=== PATIENT | female | born 1940 | race Caucasian/White ===

== ENCOUNTER → 2018-03-27 14:06 | Outpatient (CLI) | payer MEDICARE, SELFPAY ==
[2018-03-27 16:06] LABS: Add Manual Diff / Slide Review NO; Basophils Percent Auto 0.4 % (0-2); Eosinophils Percent Auto 3.9 % (2-4); Hematocrit 39.5 % (36-46); Hemoglobin 13.6 g/dL (12.0-16.0); Lymphocytes Percent Auto 21.9 % (25-40); Mean Corpuscular HGB Conc 34.6 % (30-36); Mean Corpuscular Hemoglobin 33.5 PG (26-34); Monocytes Percent Auto 8.2 % (3-14); Neutrophils Absolute Auto 3900 /uL (3000-5900); Neutrophils Percent Auto 65.6 % (50-75); Platelet Count 303 X10^3/uL (150-400); Red Blood Cell Count 4.07 X10^6/uL (4.0-5.2); Red Cell Distribution Width 13.8 % (11.6-14.8); White Blood Cell Count 5.9 X10^3/uL (4.5-11.0)
[2018-03-27 16:27] LABS: Alanine Aminotransferase 15 IU/L (9-52); Albumin 4.2 g/dL (3.5-5.0); Albumin Globulin Ratio 1.4 (1.0-2.8); Alkaline Phosphatase 71 U/L (38-126); Aspartate Aminotransferase 43 IU/L (14-36); BUN Creatinine Ratio 25.7 (6-22); Bilirubin Total 0.3 mg/dL (0.2-1.3); Blood Urea Nitrogen 18 mg/dL (7-17); Calcium 9.3 mg/dL (8.4-10.2); Carbon Dioxide 28 mmol/L (22-32); Chloride 102 mmol/L (98-107); Estimated Glomerular Filt Rate > 60.0 mL/min (>60); Glucose 89 mg/dL (80-110); HEMOLYSIS 18 (0-50); Potassium 4.1 mmol/L (3.4-5.1); Sodium 140 mmol/L (137-145); Total Protein 7.2 g/dL (6.3-8.2)
== END ==
PROVIDERS: PCP Internal Medicine; Visit Provider Internal Medicine Rheumatology
DX: R94.5 Abnormal results of liver function studies (principal); M06.049 Rheumatoid arthritis without rheumatoid factor, unspecified hand
CPT/HCPCS: 36415; 80053; 85025

== ENCOUNTER → 2018-06-17 15:33 | Outpatient (CLI) | payer MEDICARE, SELFPAY ==
[2018-06-17 16:10] LABS: Add Manual Diff / Slide Review NO; Basophils Absolute Auto 0 /uL (0-100); Basophils Percent Auto 0.5 % (0-2); Eosinophils Absolute Auto 300 /uL (0-450); Eosinophils Percent Auto 4.8 % (2-4); Hematocrit 38.6 % (36-46); Hemoglobin 13.2 g/dL (12.0-16.0); Lymphocytes Absolute Auto 1500 /uL (1100-4500); Lymphocytes Percent Auto 26.5 % (25-40); Mean Corpuscular HGB Conc 34.3 % (30-36); Mean Corpuscular Hemoglobin 33.3 PG (26-34); Mean Corpuscular Volume 97.1 fL (80-100); Monocytes Absolute Auto 400 /uL (0-900); Monocytes Percent Auto 7.2 % (3-14); Neutrophils Absolute Auto 3500 /uL (1500-7000); Platelet Count 260 X10^3/uL (150-400); Red Blood Cell Count 3.97 X10^6/uL (4.0-5.2); Red Cell Distribution Width 14.4 % (11.6-14.8); White Blood Cell Count 5.7 X10^3/uL (4.5-11.0)
[2018-06-17 17:09] LABS: Alanine Aminotransferase 18 IU/L (9-52); Albumin 3.9 g/dL (3.5-5.0); Albumin Globulin Ratio 1.5 (1.0-2.8); Alkaline Phosphatase 59 U/L (38-126); Aspartate Aminotransferase 33 IU/L (14-36); BUN Creatinine Ratio 27.1 (6-22); Bilirubin Total 0.3 mg/dL (0.2-1.3); Blood Urea Nitrogen 19 mg/dL (7-17); Calcium 9.5 mg/dL (8.4-10.2); Carbon Dioxide 30 mmol/L (22-32); Chloride 103 mmol/L (98-107); Estimated Glomerular Filt Rate > 60.0 mL/min (>60); Globulin 2.6 g/dL (1.7-4.1); Glucose 90 mg/dL (80-110); HEMOLYSIS < 15 (0-50); Potassium 4.3 mmol/L (3.4-5.1); Sodium 139 mmol/L (137-145); Total Protein 6.5 g/dL (6.3-8.2)
== END ==
PROVIDERS: PCP Internal Medicine; Visit Provider Internal Medicine Rheumatology
DX: M81.0 Age-related osteoporosis without current pathological fracture (principal); Z79.899 Other long term (current) drug therapy
CPT/HCPCS: 36415; 80053; 85025

== ENCOUNTER → 2018-07-28 14:22 | Outpatient (CLI) | payer MEDICARE, SELFPAY ==
--- NOTE | 2018-07-28 | DI.RAD.S_ITS ---
PROCEDURE: XR CHEST 2V INDICATIONS: COUGH TECHNIQUE: 2 views of the chest were acquired. COMPARISON: None. FINDINGS: Surgical changes and devices: None. Lungs and pleura: Lungs are clear. No pleural effusions or pneumothorax. Mediastinum: Mediastinal contours are normal. Heart size is normal. Bones and chest wall: No suspicious bony abnormalities. Soft tissues appear unremarkable. Degenerative changes noted in the thoracic spine. IMPRESSION: No acute cardiopulmonary disease. Dictated by: Jairo Ocampo M.D. on 07/28/2018 at 15:30 Approved by: Jairo Ocampo M.D. on 07/28/2018 at 15:30
== END ==
PROVIDERS: PCP Internal Medicine; Visit Provider Internal Medicine
DX: R05 Cough (principal)
CPT/HCPCS: 71046

== ENCOUNTER → 2018-09-21 13:32 | Outpatient (CLI) | payer MEDICARE, SELFPAY ==
[2018-09-21 14:18] LABS: Add Manual Diff / Slide Review NO; Basophils Absolute Auto 0 /uL (0-100); Basophils Percent Auto 0.4 % (0-2); Eosinophils Absolute Auto 200 /uL (0-450); Hematocrit 38.7 % (36-46); Hemoglobin 13.1 g/dL (12.0-16.0); Lymphocytes Absolute Auto 1400 /uL (1100-4500); Mean Corpuscular HGB Conc 33.8 % (30-36); Mean Corpuscular Hemoglobin 33.2 PG (26-34); Mean Corpuscular Volume 98.3 fL (80-100); Monocytes Absolute Auto 400 /uL (0-900); Monocytes Percent Auto 8.1 % (3-14); Neutrophils Absolute Auto 3100 /uL (1500-7000); Neutrophils Percent Auto 61.5 % (50-75); Platelet Count 231 X10^3/uL (150-400); Red Blood Cell Count 3.94 X10^6/uL (4.0-5.2); White Blood Cell Count 5.1 X10^3/uL (4.5-11.0)
[2018-09-21 14:34] LABS: Alanine Aminotransferase 16 IU/L (9-52); Albumin Globulin Ratio 1.7 (1.0-2.8); Alkaline Phosphatase 53 U/L (38-126); Aspartate Aminotransferase 34 IU/L (14-36); BUN Creatinine Ratio 22.9 (6-22); Bilirubin Total 0.4 mg/dL (0.2-1.3); Blood Urea Nitrogen 16 mg/dL (7-17); Calcium 9.5 mg/dL (8.4-10.2); Carbon Dioxide 31 mmol/L (22-32); Chloride 98 mmol/L (98-107); Estimated Glomerular Filt Rate > 60.0 mL/min (>60); Globulin 2.4 g/dL (1.7-4.1); Glucose 73 mg/dL (80-110); HEMOLYSIS < 15 (0-50); Potassium 4.2 mmol/L (3.4-5.1); Sodium 137 mmol/L (137-145); Total Protein 6.4 g/dL (6.3-8.2)
== END ==
PROVIDERS: PCP Internal Medicine; Visit Provider Internal Medicine Rheumatology
DX: M06.09 Rheumatoid arthritis without rheumatoid factor, multiple sites (principal); Z79.899 Other long term (current) drug therapy; M81.0 Age-related osteoporosis without current pathological fracture
CPT/HCPCS: 36415; 80053; 85025

== ENCOUNTER → 2018-10-12 11:06 | Outpatient (CLI) | payer MEDICARE, SELFPAY ==
--- NOTE | 2018-10-12 | DI.MG.S_ITS ---
BILATERAL DIGITAL SCREENING MAMMOGRAM 3D/2D WITH CAD: 10/12/2018 CLINICAL: Routine screening. Comparison is made to exams dated: 09/11/2017 mammogram, 08/09/2016 mammogram, and 07/11/2015 mammogram - [facility]. The tissue of both breasts is extremely dense, which lowers the sensitivity of mammography. Current study was also evaluated with a Computer Aided Detection (CAD) system. No significant masses, calcifications, or other findings are seen in either breast. There has been no significant interval change. IMPRESSION: NEGATIVE There is no mammographic evidence of malignancy. A 1 year screening mammogram is recommended. This exam was interpreted at Station ID: [id number]. NOTE: For mammograms, a report in lay terms will be sent to the patient. Approximately 15% of breast malignancies will not be visualized mammographically. In the management of a palpable breast mass, a negative mammogram must not discourage biopsy of a clinically suspicious lesion. Electronically Signed By: Frankie shea/khoi:10/12/2018 14:56:17 letter sent: Normal Exam ACR BI-RADS Category 1: Negative 3341F
== END ==
PROVIDERS: PCP Internal Medicine; Visit Provider Internal Medicine
DX: Z12.31 Encounter for screening mammogram for malignant neoplasm of breast (principal)
CPT/HCPCS: 77063; 77067

== ENCOUNTER → 2018-12-11 10:08 | Outpatient (CLI) | payer MEDICARE, SELFPAY ==
[2018-12-11 11:22] LABS: Add Manual Diff / Slide Review NO; Basophils Absolute Auto 0 /uL (0-100); Basophils Percent Auto 0.6 % (0-2); Eosinophils Absolute Auto 300 /uL (0-450); Eosinophils Percent Auto 6.9 % (2-4); Hematocrit 37.7 % (36-46); Hemoglobin 13.1 g/dL (12.0-16.0); Lymphocytes Absolute Auto 1200 /uL (1100-4500); Lymphocytes Percent Auto 24.1 % (25-40); Mean Corpuscular HGB Conc 34.7 % (30-36); Mean Corpuscular Hemoglobin 33.1 PG (26-34); Mean Corpuscular Volume 95.4 fL (80-100); Monocytes Absolute Auto 500 /uL (0-900); Monocytes Percent Auto 9.3 % (3-14); Neutrophils Absolute Auto 2900 /uL (1500-7000); Neutrophils Percent Auto 59.1 % (50-75); Platelet Count 269 X10^3/uL (150-400); Red Blood Cell Count 3.95 X10^6/uL (4.0-5.2); Red Cell Distribution Width 14.1 % (11.6-14.8)
[2018-12-11 11:49] LABS: Alanine Aminotransferase 8 IU/L (9-52); Albumin Globulin Ratio 1.4 (1.0-2.8); Alkaline Phosphatase 69 U/L (38-126); Aspartate Aminotransferase 36 IU/L (14-36); BUN Creatinine Ratio 23.3 (6-22); Bilirubin Total 0.5 mg/dL (0.2-1.3); Blood Urea Nitrogen 14 mg/dL (7-17); Calcium 9.3 mg/dL (8.4-10.2); Carbon Dioxide 31 mmol/L (22-32); Chloride 98 mmol/L (98-107); Estimated Glomerular Filt Rate > 60.0 mL/min (>60); Globulin 2.8 g/dL (1.7-4.1); Glucose 80 mg/dL (80-110); HEMOLYSIS < 15 (0-50); Potassium 4.4 mmol/L (3.4-5.1); Sodium 136 mmol/L (137-145); Total Protein 6.8 g/dL (6.3-8.2)
== END ==
PROVIDERS: PCP Internal Medicine; Visit Provider Internal Medicine Rheumatology
DX: M06.09 Rheumatoid arthritis without rheumatoid factor, multiple sites (principal); M81.0 Age-related osteoporosis without current pathological fracture; Z79.899 Other long term (current) drug therapy
CPT/HCPCS: 36415; 80053; 85025

== ENCOUNTER → 2019-03-18 14:08 | Outpatient (CLI) | payer MEDICARE, SELFPAY ==
[2019-03-18 14:38] LABS: Add Manual Diff / Slide Review NO; Basophils Absolute Auto 0 /uL (0-100); Basophils Percent Auto 0.4 % (0-2); Eosinophils Absolute Auto 200 /uL (0-450); Eosinophils Percent Auto 4.1 % (2-4); Hematocrit 39.2 % (36-46); Hemoglobin 13.2 g/dL (12.0-16.0); Lymphocytes Absolute Auto 1400 /uL (1100-4500); Lymphocytes Percent Auto 27.2 % (25-40); Mean Corpuscular HGB Conc 33.8 % (30-36); Mean Corpuscular Volume 97.6 fL (80-100); Monocytes Absolute Auto 500 /uL (0-900); Monocytes Percent Auto 9.1 % (3-14); Neutrophils Absolute Auto 3000 /uL (1500-7000); Neutrophils Percent Auto 59.2 % (50-75); Platelet Count 281 X10^3/uL (150-400); Red Blood Cell Count 4.02 X10^6/uL (4.0-5.2); Red Cell Distribution Width 14.9 % (11.6-14.8)
[2019-03-18 15:51] LABS: Alanine Aminotransferase 14 IU/L (9-52); Albumin Globulin Ratio 1.4 (1.0-2.8); Alkaline Phosphatase 60 U/L (38-126); Aspartate Aminotransferase 36 IU/L (14-36); BUN Creatinine Ratio 27.1 (6-22); Bilirubin Total 0.4 mg/dL (0.2-1.3); Blood Urea Nitrogen 19 mg/dL (7-17); Calcium 9.7 mg/dL (8.4-10.2); Carbon Dioxide 32 mmol/L (22-32); Chloride 98 mmol/L (98-107); Estimated Glomerular Filt Rate > 60.0 mL/min (>60); Globulin 2.8 g/dL (1.7-4.1); Glucose 63 mg/dL (80-110); HEMOLYSIS < 15 (0-50); Potassium 4.7 mmol/L (3.4-5.1); Sodium 136 mmol/L (137-145); Total Protein 6.8 g/dL (6.3-8.2)
== END ==
PROVIDERS: PCP Internal Medicine; Visit Provider Internal Medicine Rheumatology
DX: M06.09 Rheumatoid arthritis without rheumatoid factor, multiple sites (principal); Z79.899 Other long term (current) drug therapy; M81.0 Age-related osteoporosis without current pathological fracture
CPT/HCPCS: 36415; 80053; 85025

== ENCOUNTER → 2019-06-24 13:34 | Outpatient (CLI) | payer MEDICARE, SELFPAY ==
[2019-06-24 14:36] LABS: Add Manual Diff / Slide Review NO; Basophils Absolute Auto 0 /uL (0-100); Basophils Percent Auto 0.6 % (0-2); Eosinophils Absolute Auto 100 /uL (0-450); Eosinophils Percent Auto 2.9 % (2-4); Hematocrit 37.5 % (36-46); Hemoglobin 13.2 g/dL (12.0-16.0); Lymphocytes Absolute Auto 1100 /uL (1100-4500); Lymphocytes Percent Auto 22.7 % (25-40); Mean Corpuscular HGB Conc 35.3 % (30-36); Mean Corpuscular Hemoglobin 34.1 PG (26-34); Mean Corpuscular Volume 96.5 fL (80-100); Monocytes Absolute Auto 400 /uL (0-900); Monocytes Percent Auto 7.7 % (3-14); Neutrophils Absolute Auto 3300 /uL (1500-7000); Neutrophils Percent Auto 66.1 % (50-75); Platelet Count 274 X10^3/uL (150-400); Red Blood Cell Count 3.89 X10^6/uL (4.0-5.2); Red Cell Distribution Width 14.2 % (11.6-14.8)
[2019-06-24 15:02] LABS: Alanine Aminotransferase 11 IU/L (<35); Albumin 3.9 g/dL (3.5-5.0); Albumin Globulin Ratio 1.4 (1.0-2.8); Alkaline Phosphatase 64 U/L (38-126); Aspartate Aminotransferase 36 IU/L (14-36); BUN Creatinine Ratio 21.3 (6-22); Bilirubin Total 0.4 mg/dL (0.2-1.3); Blood Urea Nitrogen 17 mg/dL (7-17); Calcium 9.7 mg/dL (8.4-10.2); Carbon Dioxide 31 mmol/L (22-32); Chloride 102 mmol/L (98-107); Estimated Glomerular Filt Rate > 60.0 mL/min (>60); Globulin 2.8 g/dL (1.7-4.1); Glucose 64 mg/dL (80-110); HEMOLYSIS < 15 (0-50); Potassium 4.3 mmol/L (3.4-5.1); Sodium 139 mmol/L (137-145); Total Protein 6.7 g/dL (6.3-8.2)
== END ==
PROVIDERS: PCP Internal Medicine; Visit Provider Internal Medicine Rheumatology
DX: M06.09 Rheumatoid arthritis without rheumatoid factor, multiple sites (principal); M81.0 Age-related osteoporosis without current pathological fracture; Z79.899 Other long term (current) drug therapy
CPT/HCPCS: 36415; 80053; 85025

== ENCOUNTER → 2019-09-22 13:41 | Outpatient (CLI) | payer MEDICARE, SELFPAY ==
[2019-09-22 14:15] LABS: Add Manual Diff / Slide Review NO; Basophils Absolute Auto 0 /uL (0-100); Basophils Percent Auto 0.6 % (0-2); Eosinophils Absolute Auto 100 /uL (0-450); Eosinophils Percent Auto 1.8 % (2-4); Hematocrit 37.9 % (36-46); Lymphocytes Absolute Auto 1200 /uL (1100-4500); Lymphocytes Percent Auto 23.9 % (25-40); Mean Corpuscular HGB Conc 34.3 % (30-36); Mean Corpuscular Hemoglobin 33.4 PG (26-34); Mean Corpuscular Volume 97.4 fL (80-100); Monocytes Absolute Auto 300 /uL (0-900); Monocytes Percent Auto 5.7 % (3-14); Neutrophils Absolute Auto 3500 /uL (1500-7000); Platelet Count 272 X10^3/uL (150-400); Red Blood Cell Count 3.89 X10^6/uL (4.0-5.2); Red Cell Distribution Width 14.7 % (11.6-14.8); White Blood Cell Count 5.2 X10^3/uL (4.5-11.0)
[2019-09-22 14:34] LABS: Alanine Aminotransferase 11 IU/L (<35); Albumin Globulin Ratio 1.4 (1.0-2.8); Alkaline Phosphatase 63 U/L (38-126); Aspartate Aminotransferase 38 IU/L (14-36); BUN Creatinine Ratio 22.6 (6-22); Bilirubin Total 0.4 mg/dL (0.2-1.3); Blood Urea Nitrogen 19 mg/dL (7-17); Calcium 9.8 mg/dL (8.4-10.2); Carbon Dioxide 29 mmol/L (22-32); Chloride 100 mmol/L (98-107); Estimated Glomerular Filt Rate > 60.0 mL/min (>60); Globulin 2.9 g/dL (1.7-4.1); Glucose 139 mg/dL (80-110); HEMOLYSIS < 15 (0-50); Potassium 4.4 mmol/L (3.4-5.1); Sodium 136 mmol/L (137-145); Total Protein 6.9 g/dL (6.3-8.2)
== END ==
PROVIDERS: PCP Internal Medicine; Referring Provider Internal Medicine; Visit Provider Internal Medicine Rheumatology
DX: M06.09 Rheumatoid arthritis without rheumatoid factor, multiple sites (principal); M81.0 Age-related osteoporosis without current pathological fracture; Z79.899 Other long term (current) drug therapy
CPT/HCPCS: 36415; 80053; 85025

== ENCOUNTER → 2019-11-04 13:41 | Outpatient (CLI) | payer MEDICARE, SELFPAY ==
--- NOTE | 2019-11-04 | DI.MG.S_ITS ---
BILATERAL DIGITAL SCREENING MAMMOGRAM 3D/2D WITH CAD: 11/04/2019 CLINICAL: Routine screening. Comparison is made to exams dated: 10/12/2018 mammogram, 09/11/2017 mammogram, and 08/09/2016 mammogram - [facility]. The tissue of both breasts is heterogeneously dense. This may lower the sensitivity of mammography. Current study was also evaluated with a Computer Aided Detection (CAD) system. No significant masses, calcifications, or other findings are seen in either breast. There has been no significant interval change. IMPRESSION: NEGATIVE There is no mammographic evidence of malignancy. A 1 year screening mammogram is recommended. This exam was interpreted at Station ID: [id number]. NOTE: For mammograms, a report in lay terms will be sent to the patient. Approximately 15% of breast malignancies will not be visualized mammographically. In the management of a palpable breast mass, a negative mammogram must not discourage biopsy of a clinically suspicious lesion. Electronically Signed By: Arley pedro/khoi:11/04/2019 16:04:06 letter sent: Normal Exam ACR BI-RADS Category 1: Negative 3341F
== END ==
PROVIDERS: PCP Internal Medicine; Referring Provider Internal Medicine Rheumatology; Visit Provider Internal Medicine Rheumatology
DX: Z12.31 Encounter for screening mammogram for malignant neoplasm of breast (principal); M85.851 Other specified disorders of bone density and structure, right thigh; Z78.0 Asymptomatic menopausal state; E07.9 Disorder of thyroid, unspecified; M06.9 Rheumatoid arthritis, unspecified; Z87.891 Personal history of nicotine dependence
CPT/HCPCS: 77063; 77067; 77080

== ENCOUNTER → 2019-12-23 15:19 | Outpatient (CLI) | payer MEDICARE, SELFPAY ==
[2019-12-23 16:19] LABS: Add Manual Diff / Slide Review NO; Basophils Absolute Auto 0 /uL (0-100); Basophils Percent Auto 0.4 % (0-2); Eosinophils Absolute Auto 100 /uL (0-450); Hematocrit 36.9 % (36-46); Hemoglobin 12.5 g/dL (12.0-16.0); Lymphocytes Absolute Auto 1200 /uL (1100-4500); Lymphocytes Percent Auto 24.7 % (25-40); Mean Corpuscular HGB Conc 33.9 % (30-36); Mean Corpuscular Volume 97.5 fL (80-100); Monocytes Absolute Auto 400 /uL (0-900); Monocytes Percent Auto 8.7 % (3-14); Neutrophils Absolute Auto 3000 /uL (1500-7000); Neutrophils Percent Auto 63.2 % (50-75); Platelet Count 261 X10^3/uL (150-400); Red Blood Cell Count 3.78 X10^6/uL (4.0-5.2); Red Cell Distribution Width 14.5 % (11.6-14.8); White Blood Cell Count 4.7 X10^3/uL (4.5-11.0)
[2019-12-23 16:43] LABS: Alanine Aminotransferase 10 IU/L (<35); Albumin Globulin Ratio 1.7 (1.0-2.8); Alkaline Phosphatase 64 U/L (38-126); Aspartate Aminotransferase 41 IU/L (14-36); BUN Creatinine Ratio 22.2 (6-22); Bilirubin Total 0.4 mg/dL (0.2-1.3); Blood Urea Nitrogen 18 mg/dL (7-17); Calcium 9.8 mg/dL (8.4-10.2); Carbon Dioxide 30 mmol/L (22-32); Chloride 100 mmol/L (98-107); Estimated Glomerular Filt Rate > 60.0 mL/min (>60); Globulin 2.4 g/dL (1.7-4.1); Glucose 92 mg/dL (80-110); HEMOLYSIS < 15 (0-50); Potassium 4.3 mmol/L (3.4-5.1); Sodium 135 mmol/L (137-145); Total Protein 6.4 g/dL (6.3-8.2)
== END ==
PROVIDERS: PCP Internal Medicine; Referring Provider Internal Medicine Rheumatology; Visit Provider Internal Medicine Rheumatology
DX: M06.09 Rheumatoid arthritis without rheumatoid factor, multiple sites (principal); M81.0 Age-related osteoporosis without current pathological fracture; Z79.899 Other long term (current) drug therapy
CPT/HCPCS: 36415; 80053; 85025

== ENCOUNTER → 2020-03-29 14:13 | Outpatient (CLI) | payer MEDICARE, SELFPAY ==
[2020-03-29 14:40] LABS: Add Manual Diff / Slide Review NO; Basophils Absolute Auto 0 /uL (0-100); Basophils Percent Auto 0.5 % (0-2); Eosinophils Absolute Auto 200 /uL (0-450); Eosinophils Percent Auto 3.2 % (2-4); Hematocrit 35.7 % (36-46); Hemoglobin 11.8 g/dL (12.0-16.0); Lymphocytes Absolute Auto 1300 /uL (1100-4500); Lymphocytes Percent Auto 25.3 % (25-40); Mean Corpuscular HGB Conc 33.1 % (30-36); Mean Corpuscular Hemoglobin 32.6 PG (26-34); Mean Corpuscular Volume 98.7 fL (80-100); Monocytes Absolute Auto 300 /uL (0-900); Monocytes Percent Auto 5.3 % (3-14); Neutrophils Absolute Auto 3300 /uL (1500-7000); Neutrophils Percent Auto 65.7 % (50-75); Platelet Count 258 X10^3/uL (150-400); Red Blood Cell Count 3.61 X10^6/uL (4.0-5.2); Red Cell Distribution Width 14.8 % (11.6-14.8)
[2020-03-29 15:23] LABS: Alanine Aminotransferase 11 IU/L (<35); Albumin 3.7 g/dL (3.5-5.0); Albumin Globulin Ratio 1.4 (1.0-2.8); Alkaline Phosphatase 71 U/L (38-126); Aspartate Aminotransferase 41 IU/L (14-36); BUN Creatinine Ratio 36.1 (6-22); Bilirubin Total 0.3 mg/dL (0.2-1.3); Blood Urea Nitrogen 22 mg/dL (7-17); Calcium 9.2 mg/dL (8.4-10.2); Carbon Dioxide 30 mmol/L (22-32); Chloride 101 mmol/L (98-107); Estimated Glomerular Filt Rate > 60.0 mL/min (>60); Globulin 2.6 g/dL (1.7-4.1); Glucose 116 mg/dL (80-110); HEMOLYSIS < 15 (0-50); Potassium 4.3 mmol/L (3.4-5.1); Sodium 136 mmol/L (137-145); Total Protein 6.3 g/dL (6.3-8.2)
== END ==
PROVIDERS: PCP Internal Medicine; Referring Provider Internal Medicine Rheumatology; Visit Provider Internal Medicine Rheumatology
DX: M06.09 Rheumatoid arthritis without rheumatoid factor, multiple sites (principal); M81.0 Age-related osteoporosis without current pathological fracture; Z79.899 Other long term (current) drug therapy
CPT/HCPCS: 36415; 80053; 85025

== ENCOUNTER → 2020-06-22 10:58 | Outpatient (CLI) | payer MEDICARE, SELFPAY ==
[2020-06-22 12:06] LABS: Add Manual Diff / Slide Review NO; Basophils Absolute Auto 0 /uL (0-100); Basophils Percent Auto 0.3 % (0-2); Eosinophils Absolute Auto 300 /uL (0-450); Eosinophils Percent Auto 5.9 % (2-4); Hematocrit 37.3 % (36-46); Hemoglobin 12.3 g/dL (12.0-16.0); Lymphocytes Absolute Auto 1300 /uL (1100-4500); Lymphocytes Percent Auto 22.7 % (25-40); Mean Corpuscular HGB Conc 33.1 % (30-36); Mean Corpuscular Hemoglobin 31.8 PG (26-34); Mean Corpuscular Volume 96.2 fL (80-100); Monocytes Absolute Auto 500 /uL (0-900); Monocytes Percent Auto 9.2 % (3-14); Neutrophils Absolute Auto 3500 /uL (1500-7000); Neutrophils Percent Auto 61.9 % (50-75); Platelet Count 259 X10^3/uL (150-400); Red Blood Cell Count 3.88 X10^6/uL (4.0-5.2); White Blood Cell Count 5.6 X10^3/uL (4.5-11.0)
[2020-06-22 12:18] LABS: Alanine Aminotransferase 12 IU/L (<35); Albumin 3.9 g/dL (3.5-5.0); Albumin Globulin Ratio 1.3 (1.0-2.8); Aspartate Aminotransferase 46 IU/L (14-36); BUN Creatinine Ratio 30.3 (6-22); Bilirubin Total 0.4 mg/dL (0.2-1.3); Blood Urea Nitrogen 20 mg/dL (7-17); Carbon Dioxide 32 mmol/L (22-32); Chloride 100 mmol/L (98-107); Estimated Glomerular Filt Rate > 60.0 mL/min (>60); Globulin 2.9 g/dL (1.7-4.1); Glucose 81 mg/dL (80-110); HEMOLYSIS < 15 (0-50); Potassium 4.3 mmol/L (3.4-5.1); Sodium 132 mmol/L (137-145); Total Protein 6.8 g/dL (6.3-8.2)
[2020-06-22 12:23] LABS: Alkaline Phosphatase 82 U/L (38-126)
== END ==
PROVIDERS: PCP Internal Medicine; Referring Provider Internal Medicine Rheumatology; Visit Provider Internal Medicine Rheumatology
DX: M06.09 Rheumatoid arthritis without rheumatoid factor, multiple sites (principal); M81.0 Age-related osteoporosis without current pathological fracture; Z79.899 Other long term (current) drug therapy
CPT/HCPCS: 36415; 80053; 85025

== ENCOUNTER → 2020-07-11 12:38 | Outpatient (CLI) | payer MEDICARE, SELFPAY ==
[2020-07-11 13:42] LABS: Alanine Aminotransferase 11 IU/L (<35); Albumin 3.6 g/dL (3.5-5.0); Albumin Globulin Ratio 1.3 (1.0-2.8); Alkaline Phosphatase 104 U/L (38-126); Aspartate Aminotransferase 42 IU/L (14-36); BUN Creatinine Ratio 26.3 (6-22); Bilirubin Total 0.4 mg/dL (0.2-1.3); Blood Urea Nitrogen 15 mg/dL (7-17); Calcium 9.3 mg/dL (8.4-10.2); Carbon Dioxide 32 mmol/L (22-32); Chloride 100 mmol/L (98-107); Estimated Glomerular Filt Rate > 60.0 mL/min (>60); Globulin 2.8 g/dL (1.7-4.1); Glucose 88 mg/dL (80-110); HEMOLYSIS < 15 (0-50); Potassium 4.3 mmol/L (3.4-5.1); Sodium 135 mmol/L (137-145); Total Protein 6.4 g/dL (6.3-8.2)
== END ==
PROVIDERS: PCP Internal Medicine; Referring Provider Internal Medicine Rheumatology; Visit Provider Internal Medicine Rheumatology
DX: M06.09 Rheumatoid arthritis without rheumatoid factor, multiple sites (principal); Z79.899 Other long term (current) drug therapy
CPT/HCPCS: 36415; 80053

== ENCOUNTER → 2020-07-21 14:08 | Outpatient (CLI) | payer MEDICARE, SELFPAY ==
--- NOTE | 2020-07-21 14:09 | DI.US.S_ITS ---
PROCEDURE: US ABDOMEN LIMITED INDICATIONS: Mild elevation in one liver test TECHNIQUE: Real-time focused scanning was performed of the abdomen, with image documentation. COMPARISON: None. FINDINGS: Normal appearance of the liver and gallbladder. No biliary dilatation. Normal appearance of pancreas. IMPRESSION: Normal limited exam. Dictated by: Philip URBINA Interpreted: Yaya Stern MD on 07/21/2020 at 15:23 Approved by: Yaya Stern M.D. on 07/21/2020 at 16:10
== END ==
PROVIDERS: PCP Internal Medicine; Referring Provider Internal Medicine Rheumatology; Visit Provider Internal Medicine Rheumatology
DX: R79.89 Other specified abnormal findings of blood chemistry (principal)
CPT/HCPCS: 76705

== ENCOUNTER → 2020-10-03 15:20 | Outpatient (CLI) | payer MEDICARE, SELFPAY ==
[2020-10-03 16:46] LABS: Add Manual Diff / Slide Review NO; Basophils Absolute Auto 0 /uL (0-100); Basophils Percent Auto 0.5 % (0-2); Eosinophils Absolute Auto 200 /uL (0-450); Eosinophils Percent Auto 4.6 % (2-4); Hematocrit 34.3 % (36-46); Hemoglobin 11.9 g/dL (12.0-16.0); Lymphocytes Absolute Auto 1300 /uL (1100-4500); Lymphocytes Percent Auto 30.3 % (25-40); Mean Corpuscular HGB Conc 34.6 % (30-36); Mean Corpuscular Hemoglobin 32.7 PG (26-34); Mean Corpuscular Volume 94.6 fL (80-100); Monocytes Absolute Auto 300 /uL (0-900); Monocytes Percent Auto 6.3 % (3-14); Neutrophils Absolute Auto 2500 /uL (1500-7000); Neutrophils Percent Auto 58.3 % (50-75); Platelet Count 216 X10^3/uL (150-400); Red Blood Cell Count 3.63 X10^6/uL (4.0-5.2); White Blood Cell Count 4.4 X10^3/uL (4.5-11.0)
[2020-10-03 17:16] LABS: Alanine Aminotransferase 12 IU/L (<35); Albumin 3.6 g/dL (3.5-5.0); Albumin Globulin Ratio 1.4 (1.0-2.8); Alkaline Phosphatase 61 U/L (38-126); Aspartate Aminotransferase 42 IU/L (14-36); BUN Creatinine Ratio 34.4 (6-22); Bilirubin Total 0.2 mg/dL (0.2-1.3); Blood Urea Nitrogen 22 mg/dL (7-17); Calcium 9.1 mg/dL (8.4-10.2); Carbon Dioxide 28 mmol/L (22-32); Chloride 106 mmol/L (98-107); Estimated Glomerular Filt Rate > 60.0 mL/min (>60); Globulin 2.6 g/dL (1.7-4.1); Glucose 83 mg/dL (80-110); HEMOLYSIS < 15 (0-50); Potassium 3.9 mmol/L (3.4-5.1); Sodium 137 mmol/L (137-145); Total Protein 6.2 g/dL (6.3-8.2)
== END ==
PROVIDERS: PCP Internal Medicine; Referring Provider Internal Medicine Rheumatology; Visit Provider Internal Medicine Rheumatology
DX: M06.09 Rheumatoid arthritis without rheumatoid factor, multiple sites (principal); M81.0 Age-related osteoporosis without current pathological fracture; Z79.899 Other long term (current) drug therapy
CPT/HCPCS: 36415; 80053; 85025

== ENCOUNTER → 2020-10-31 19:29 | Outpatient (ROUT) | payer MEDICARE, SELFPAY ==
[2020-10-31 20:40] LABS: Cholesterol 137 mg/dL (140-199); HDL Cholesterol 98 mg/dL (40-60); LDL Cholesterol Calculated 30 mg/dL (<100); Triglycerides 44 mg/dL (35-150)
== END ==
PROVIDERS: PCP Internal Medicine; Visit Provider Internal Medicine
DX: E78.2 Mixed hyperlipidemia (principal); E03.9 Hypothyroidism, unspecified
CPT/HCPCS: 80061; 84443

== ENCOUNTER → 2020-12-22 10:22 | Outpatient (CLI) | payer MEDICARE, SELFPAY ==
--- NOTE | 2020-12-22 | DI.MG.S_ITS ---
BILATERAL DIGITAL SCREENING MAMMOGRAM 3D/2D WITH CAD: 12/22/2020 CLINICAL: Routine screening. Comparison is made to exams dated: 11/04/2019 mammogram, 10/12/2018 mammogram, and 09/11/2017 mammogram - [facility]. The tissue of both breasts is heterogeneously dense. This may lower the sensitivity of mammography. Current study was also evaluated with a Computer Aided Detection (CAD) system. No significant masses, calcifications, or other findings are seen in either breast. There has been no significant interval change. IMPRESSION: NEGATIVE There is no mammographic evidence of malignancy. A 1 year screening mammogram is recommended. This exam was interpreted at Station ID: [id number]. NOTE: For mammograms, a report in lay terms will be sent to the patient. Approximately 15% of breast malignancies will not be visualized mammographically. In the management of a palpable breast mass, a negative mammogram must not discourage biopsy of a clinically suspicious lesion. Electronically Signed By: Arley pedro/khoi:12/22/2020 11:03:59 letter sent: Normal Exam ACR BI-RADS Category 1: Negative 3341F
== END ==
PROVIDERS: PCP Internal Medicine; Referring Provider Internal Medicine; Visit Provider Internal Medicine
DX: Z12.31 Encounter for screening mammogram for malignant neoplasm of breast (principal)
CPT/HCPCS: 77063; 77067

== ENCOUNTER → 2020-12-22 10:55 | Outpatient (CLI) | payer MEDICARE, SELFPAY ==
[2020-12-22 12:01] LABS: Alanine Aminotransferase 13 IU/L (<35); Albumin 3.9 g/dL (3.5-5.0); Albumin Globulin Ratio 1.4 (1.0-2.8); Alkaline Phosphatase 57 U/L (38-126); Aspartate Aminotransferase 47 IU/L (14-36); BUN Creatinine Ratio 36.4 (6-22); Bilirubin Total 0.5 mg/dL (0.2-1.3); Blood Urea Nitrogen 24 mg/dL (7-17); Calcium 9.6 mg/dL (8.4-10.2); Carbon Dioxide 28 mmol/L (22-32); Chloride 103 mmol/L (98-107); Estimated Glomerular Filt Rate > 60.0 mL/min (>60); Globulin 2.8 g/dL (1.7-4.1); Glucose 84 mg/dL (80-110); HEMOLYSIS < 15 (0-50); Potassium 4.3 mmol/L (3.4-5.1); Sodium 135 mmol/L (137-145); Total Protein 6.7 g/dL (6.3-8.2)
[2020-12-22 12:42] LABS: Add Manual Diff / Slide Review NO; Basophils Absolute Auto 0 /uL (0-100); Basophils Percent Auto 0.6 % (0-2); Eosinophils Absolute Auto 100 /uL (0-450); Eosinophils Percent Auto 3.1 % (2-4); Hematocrit 36.8 % (36-46); Hemoglobin 12.5 g/dL (12.0-16.0); Lymphocytes Absolute Auto 1100 /uL (1100-4500); Lymphocytes Percent Auto 24.9 % (25-40); Mean Corpuscular HGB Conc 33.9 % (30-36); Mean Corpuscular Hemoglobin 32.7 PG (26-34); Mean Corpuscular Volume 96.6 fL (80-100); Monocytes Absolute Auto 400 /uL (0-900); Monocytes Percent Auto 8.2 % (3-14); Neutrophils Absolute Auto 2800 /uL (1500-7000); Neutrophils Percent Auto 63.2 % (50-75); Platelet Count 228 X10^3/uL (150-400); Red Blood Cell Count 3.81 X10^6/uL (4.0-5.2); Red Cell Distribution Width 14.2 % (11.6-14.8); White Blood Cell Count 4.4 X10^3/uL (4.5-11.0)
== END ==
PROVIDERS: PCP Internal Medicine; Referring Provider Internal Medicine Rheumatology; Visit Provider Internal Medicine Rheumatology
DX: M06.09 Rheumatoid arthritis without rheumatoid factor, multiple sites (principal); Z79.899 Other long term (current) drug therapy; M81.0 Age-related osteoporosis without current pathological fracture
CPT/HCPCS: 36415; 80053; 85025

== ENCOUNTER → 2021-03-30 13:49 | Outpatient (CLI) | payer MEDICARE, SELFPAY ==
[2021-03-30 14:23] LABS: Add Manual Diff / Slide Review NO; Basophils Absolute Auto 0 /uL (0-100); Basophils Percent Auto 0.6 % (0-2); Eosinophils Absolute Auto 100 /uL (0-450); Eosinophils Percent Auto 1.8 % (2-4); Hematocrit 35.9 % (36-46); Hemoglobin 12.1 g/dL (12.0-16.0); Lymphocytes Absolute Auto 1100 /uL (1100-4500); Lymphocytes Percent Auto 22.6 % (25-40); Mean Corpuscular HGB Conc 33.7 % (30-36); Mean Corpuscular Hemoglobin 32.7 PG (26-34); Mean Corpuscular Volume 97.2 fL (80-100); Monocytes Absolute Auto 300 /uL (0-900); Monocytes Percent Auto 6.8 % (3-14); Neutrophils Absolute Auto 3400 /uL (1500-7000); Neutrophils Percent Auto 68.2 % (50-75); Platelet Count 246 X10^3/uL (150-400); Red Blood Cell Count 3.69 X10^6/uL (4.0-5.2); Red Cell Distribution Width 14.3 % (11.6-14.8); White Blood Cell Count 4.9 X10^3/uL (4.5-11.0)
[2021-03-30 14:36] LABS: Alanine Aminotransferase 13 IU/L (<35); Albumin 3.9 g/dL (3.5-5.0); Albumin Globulin Ratio 1.6 (1.0-2.8); Alkaline Phosphatase 57 U/L (38-126); Aspartate Aminotransferase 41 IU/L (14-36); BUN Creatinine Ratio 29.2 (6-22); Bilirubin Total 0.5 mg/dL (0.2-1.3); Blood Urea Nitrogen 21 mg/dL (7-17); Calcium 9.5 mg/dL (8.4-10.2); Carbon Dioxide 28 mmol/L (22-32); Chloride 102 mmol/L (98-107); Estimated Glomerular Filt Rate > 60.0 mL/min (>60); Globulin 2.4 g/dL (1.7-4.1); Glucose 91 mg/dL (80-110); HEMOLYSIS < 15 (0-50); Potassium 4.2 mmol/L (3.4-5.1); Sodium 135 mmol/L (137-145); Total Protein 6.3 g/dL (6.3-8.2)
== END ==
PROVIDERS: PCP Internal Medicine; Referring Provider Internal Medicine Rheumatology; Visit Provider Internal Medicine Rheumatology
DX: M06.09 Rheumatoid arthritis without rheumatoid factor, multiple sites (principal); M81.0 Age-related osteoporosis without current pathological fracture; Z79.899 Other long term (current) drug therapy
CPT/HCPCS: 36415; 80053; 85025

== ENCOUNTER → 2021-06-04 13:39 | Outpatient (ROUT) | payer MEDICARE, SELFPAY | PROVIDERS: PCP Internal Medicine; Visit Provider Dermatology | DX: L03.115 Cellulitis of right lower limb (principal) | CPT/HCPCS: 87070; 87075; 87077; 87147; 87205 ==

== ENCOUNTER → 2021-06-20 14:43 | Outpatient (ROUT) | payer MEDICARE, SELFPAY | PROVIDERS: PCP Internal Medicine; Visit Provider Dermatology | DX: L30.9 Dermatitis, unspecified (principal); D84.9 Immunodeficiency, unspecified | CPT/HCPCS: 87070; 87075; 87205 ==

== ENCOUNTER → 2021-06-21 16:11 | Outpatient (CLI) | payer MEDICARE, SELFPAY ==
[2021-06-21 17:08] LABS: Add Manual Diff / Slide Review NO; Basophils Absolute Auto 0 /uL (0-100); Basophils Percent Auto 0.6 % (0-2); Eosinophils Absolute Auto 400 /uL (0-450); Eosinophils Percent Auto 6.5 % (2-4); Hematocrit 37.1 % (36-46); Hemoglobin 12.7 g/dL (12.0-16.0); Lymphocytes Absolute Auto 1100 /uL (1100-4500); Lymphocytes Percent Auto 19.9 % (25-40); Mean Corpuscular HGB Conc 34.3 % (30-36); Mean Corpuscular Hemoglobin 32.2 PG (26-34); Mean Corpuscular Volume 93.9 fL (80-100); Monocytes Absolute Auto 600 /uL (0-900); Monocytes Percent Auto 9.9 % (3-14); Neutrophils Absolute Auto 3500 /uL (1500-7000); Neutrophils Percent Auto 63.1 % (50-75); Platelet Count 283 X10^3/uL (150-400); Red Blood Cell Count 3.94 X10^6/uL (4.0-5.2); Red Cell Distribution Width 14.1 % (11.6-14.8); White Blood Cell Count 5.6 X10^3/uL (4.5-11.0)
[2021-06-21 17:25] LABS: Alanine Aminotransferase 11 IU/L (<35); Albumin Globulin Ratio 1.5 (1.0-2.8); Alkaline Phosphatase 84 U/L (38-126); Aspartate Aminotransferase 39 IU/L (14-36); BUN Creatinine Ratio 29.7 (6-22); Bilirubin Total 0.5 mg/dL (0.2-1.3); Blood Urea Nitrogen 19 mg/dL (7-17); Calcium 9.9 mg/dL (8.4-10.2); Carbon Dioxide 29 mmol/L (22-32); Chloride 102 mmol/L (98-107); Estimated Glomerular Filt Rate > 60.0 mL/min (>60); Globulin 2.6 g/dL (1.7-4.1); Glucose 85 mg/dL (80-110); HEMOLYSIS < 15 (0-50); Potassium 4.4 mmol/L (3.4-5.1); Sodium 136 mmol/L (137-145); Total Protein 6.6 g/dL (6.3-8.2)
== END ==
PROVIDERS: PCP Internal Medicine; Referring Provider Internal Medicine Rheumatology; Visit Provider Internal Medicine Rheumatology
DX: M06.09 Rheumatoid arthritis without rheumatoid factor, multiple sites (principal); Z79.899 Other long term (current) drug therapy; M81.0 Age-related osteoporosis without current pathological fracture
CPT/HCPCS: 36415; 80053; 85025

== ENCOUNTER → 2021-07-04 14:45 | Outpatient (CLI) | payer MEDICARE, SELFPAY | PROVIDERS: PCP Internal Medicine; Referring Provider Dermatology; Visit Provider Family Medicine | DX: I87.2 Venous insufficiency (chronic) (peripheral) (principal); L97.312 Non-pressure chronic ulcer of right ankle with fat layer exposed; L08.9 Local infection of the skin and subcutaneous tissue, unspecified; L95.0 Livedoid vasculitis; R60.0 Localized edema; M06.9 Rheumatoid arthritis, unspecified; D84.821 Immunodeficiency due to drugs; Z79.899 Other long term (current) drug therapy | CPT/HCPCS: 11042; 87070; 87075; 87077; 87205; 99204; 99213 ==

== ENCOUNTER 2021-07-06 15:32 | Inpatient (IN) | payer MEDICARE, SELFPAY ==
[2021-07-06] VITALS (61 sets, daily range): BP systolic 88–152; BP diastolic 67–106; PULSE 116–152; RESP 10–26; TEMP 36.3; O2SAT 93–99; BMI 22.8
--- NOTE | 2021-07-06 15:48 | DI.RAD.S_ITS ---
PROCEDURE: XR CHEST 1V INDICATIONS: chest pain TECHNIQUE: One view of the chest was acquired. COMPARISON: [facility], CR, XR CHEST 2V, 07/28/2018, 14:27. FINDINGS: Surgical changes and devices: None. Lungs and pleura: Lungs are clear. No pleural effusions or pneumothorax. Mediastinum: Mediastinal contours appear normal. Heart size is normal. Bones and chest wall: No suspicious bony lesions. Overlying soft tissues appear unremarkable. IMPRESSION: Stable radiographic evaluation of the chest without acute cardiopulmonary abnormalities or focal airspace disease. Dictated by: Arley Lucas M.D. on 07/06/2021 at 16:05 Approved by: Arley Lucas M.D. on 07/06/2021 at 16:05
[2021-07-06 15:56] LABS: Add Manual Diff / Slide Review NO; Basophils Absolute Auto 0 /uL (0-100); Basophils Percent Auto 0.4 % (0-2); Eosinophils Absolute Auto 100 /uL (0-450); Eosinophils Percent Auto 2.1 % (2-4); Hematocrit 37.1 % (36-46); Hemoglobin 12.9 g/dL (12.0-16.0); Lymphocytes Absolute Auto 1100 /uL (1100-4500); Lymphocytes Percent Auto 20.4 % (25-40); Mean Corpuscular HGB Conc 34.7 % (30-36); Mean Corpuscular Hemoglobin 32.4 PG (26-34); Mean Corpuscular Volume 93.2 fL (80-100); Monocytes Absolute Auto 400 /uL (0-900); Monocytes Percent Auto 7.3 % (3-14); Neutrophils Absolute Auto 3900 /uL (1500-7000); Neutrophils Percent Auto 69.8 % (50-75); Platelet Count 268 X10^3/uL (150-400); Red Blood Cell Count 3.98 X10^6/uL (4.0-5.2); Red Cell Distribution Width 14.4 % (11.6-14.8); White Blood Cell Count 5.5 X10^3/uL (4.5-11.0)
[2021-07-06 16:10] LABS: COVID19 -Nasal RAPID Negative (Negative)
[2021-07-06 16:15] LABS: Alanine Aminotransferase 12 IU/L (<35); Albumin 3.8 g/dL (3.5-5.0); Albumin Globulin Ratio 1.4 (1.0-2.8); Alkaline Phosphatase 60 U/L (38-126); Aspartate Aminotransferase 64 IU/L (14-36); BUN Creatinine Ratio 28.6 (6-22); Bilirubin Total 0.5 mg/dL (0.2-1.3); Blood Urea Nitrogen 22 mg/dL (7-17); Calcium 9.8 mg/dL (8.4-10.2); Carbon Dioxide 28 mmol/L (22-32); Chloride 105 mmol/L (98-107); Creatine Kinase 84 U/L (30-135); Estimated Glomerular Filt Rate > 60.0 mL/min (>60); Globulin 2.8 g/dL (1.7-4.1); Glucose 96 mg/dL (80-110); HEMOLYSIS < 15 (0-50); Lipase 71 U/L (23-300); Magnesium 2.2 mg/dL (1.6-2.3); Potassium 4.3 mmol/L (3.4-5.1); Sodium 136 mmol/L (137-145); Total Protein 6.6 g/dL (6.3-8.2)
--- NOTE | 2021-07-06 16:16 | ED.ARRPALP ---
HPI - Arrhythmia/Palpitations General Chief Complaint: Arrhythmia/Palpitations Stated Complaint: IRREGULAR HEART BEAT Time Seen by Provider: 07/06/21 15:52 Source: patient Mode of arrival: Wheelchair History of Present Illness HPI narrative: The patient has a wound on her right heel, she receives wound care. Light wound care, they notified her of severe tachycardia, requesting she be seen in the ER. She has a remote history of AFib, she does not have chronic AFib. She is not anticoagulated. She presents here with tachycardia, but no chest pain, palpitations, dizziness or weakness. She feels well. She is on medications for hypertension and hyperlipidemia She has no history of diabetes. She denies a history of CAD. She says she feels well, she was unaware of the tachycardia and unsure when it started. Related Data Home Medications Medication Instructions Recorded Confirmed alendronate 70 mg tablet 70 mg PO QWEEK 07/06/21 07/06/21 amlodipine 2.5 mg tablet 2.5 mg PO DAILY 07/06/21 07/06/21 estradiol 0.5 mg tablet 0.5 mg PO DAILY 07/06/21 07/06/21 liothyronine 5 mcg tablet 5 mcg PO DAILY 07/06/21 07/06/21 losartan 100 mg tablet 100 mg PO DAILY 07/06/21 07/06/21 methotrexate sodium 2.5 mg tablet 2.5 mg PO QWEEK 07/06/21 07/06/21 mirtazapine 15 mg disintegrating 15 mg PO DAILY 07/06/21 07/06/21 tablet rosuvastatin 10 mg tablet 10 mg PO DAILY 07/06/21 07/06/21 Allergies Allergy/AdvReac Type Severity Reaction Status Date / Time codeine AdvReac Mild ITCHY Verified 07/06/21 18:44 Review of Systems Constitutional Constitutional: Denies body ache(s), Denies fever(s), Denies frequent falls and Denies night sweats Eyes Eyes: Denies change in vision ENT Ears, Nose, Mouth, and Throat: Denies vertigo, Denies dizziness, Denies sinus pressure and Denies sore throat Cardiovascular Cardiovascular: Denies chest pain, Denies syncope, Denies rapid heart rate and Denies pedal edema Respiratory Respiratory: Denies chest congestion and Denies cough Gastrointestinal Gastrointestinal: Denies abdominal pain and Denies nausea Genitourinary Comments: No urinary complaints Musculoskeletal Musculoskeletal: Denies back pain and Denies arthralgias Comments: No lower extremity edema. Integumentary/Breasts Comments: Open sore on her right lower extremity as noted HPI. Dressing is in place. Neurologic Neurologic: Denies vertigo, Denies dizziness, Denies syncope and Denies frequent falls Psychiatric Psychiatric: Denies anxiety Hematologic/Lymphatic On Anticoagulants: No Patient History Medical History (Updated 07/06/21 @ 18:53 by Panda Alford MD) Hyperlipidemia Hypertension Hypothyroidism Insomnia Low bone density Paroxysmal atrial fibrillation Rheumatoid arthritis Social History Smoking Status: Former smoker Smoking Status: Former smoker alcohol intake frequency: holidays/special occasions only Substance Use Type: does not use Exam Initial Vital Signs Initial Vital Signs: Vital Signs Temperature 97.4 F L 07/06/21 15:33 Pulse Rate 130 H 07/06/21 15:33 Respiratory Rate 18 07/06/21 15:33 Blood Pressure 120/90 07/06/21 15:33 Pulse Oximetry 98 07/06/21 15:33 Const General: cooperative, healthy appearing and comfortable Orientation: Orientation (Normal) [facility] Head: normocephalic and atraumatic Mouth: oral mucosae normal Neck Neck: No lymphadenopathy and No JVD Resp Effort & Inspection: normal respiratory effort Auscultation: clear to auscultation bilaterally Cardio Rate: regular rate Rhythm: regular rhythm Heart Sounds: S1 normal, S2 normal, no click, no murmurs and no rubs GI Inspection: normal to inspection, edema and striae Palpation: soft, No mass and No tender Auscultation: normal bowel sounds Back/Spine/Pelvis Back: No CVA tenderness Skin General: no rashes or lesions noted Neuro General: patient alert, patient awake and patient oriented x3 Extrem General: normal to inspection, capillary refill normal and no pedal edema Psych Mental Status: mental status grossly normal Course Course Course Narrative: The patient presents with AFib RVR. She was initially given labetalol 10 mg IV with no effect. IV Cardizem 10 mg IV likewise had no effect. The intent was to give IV Lopressor, no injectable Lopressor is immediately available. I discussed the situation with the hospitalist, Dr. Benavides, he suggested oral Cardizem 120 mg orally. Additional IV Cardizem was canceled. She will be admitted to his care for the AFib. Orders Ordered: ED Orders 07/06/21 15:40 EKG-12 Lead Routine 07/06/21 15:48 XR chest 1V Stat 07/06/21 15:50 COVID19 -Nasal swab/Pre-Proc Stat Complete Blood Count AUTO DIFF Stat Comprehensive Metabolic Panel Stat Lipase Stat Magnesium Stat Troponin & CK Cardiac Panel Stat Discontinued Medications Aspirin (Aspirin 81 Mg Chew Tab) 324 mg PO NOW ONE Stop: 07/06/21 17:00 Last Admin: 07/06/21 17:08 Dose: 324 mg Documented by: ATAYLOR Diltiazem HCl (Diltiazem 5 Mg/Ml Sdv) 10 mg IV NOW ONE Stop: 07/06/21 17:00 Last Admin: 07/06/21 17:09 Dose: 10 mg Documented by: ATADARLENEOR Diltiazem HCl (Diltiazem 5 Mg/Ml Sdv) 20 mg IV NOW ONE Stop: 07/06/21 18:12 Last Admin: 07/06/21 18:45 Dose: Not Given Documented by: MAMTA Diltiazem HCl (Diltiazem Cd 120 Mg Cap) 120 mg PO NOW ONE Stop: 07/06/21 18:24 Last Admin: 07/06/21 19:03 Dose: 120 mg Documented by: CINDYOR Labetalol HCl (Labetalol 20 Mg/4 Ml Syringe) 10 mg IV NOW ONE Stop: 07/06/21 16:16 Last Admin: 07/06/21 16:19 Dose: 10 mg Documented by: CINDYOR Metoprolol Tartrate (Metoprolol Tartrate 5 Mg/5 Ml Inj) 5 mg IV Q5M CLARE Stop: 07/06/21 18:11 Last Admin: 07/06/21 18:46 Dose: Not Given Documented by: Admin: 07/06/21 18:46 Dose: Not Given Documented by: Admin: 07/06/21 18:45 Dose: Not Given Documented by: MAMTA Vital Signs Vital signs: Vital Signs - 8 hr 07/06/21 15:33 07/06/21 16:04 07/06/21 16:05 Temperature 97.4 F L Pulse Rate 130 H 126 H 149 H Respiratory Rate 18 18 Blood Pressure 120/90 133/98 H Pulse Oximetry 98 96 98 07/06/21 16:15 07/06/21 16:24 07/06/21 16:27 Temperature Pulse Rate 151 H 151 H 145 H Respiratory Rate 15 12 14 Blood Pressure 110/91 H 113/85 111/70 Pulse Oximetry 96 97 97 07/06/21 16:28 07/06/21 16:30 07/06/21 16:35 Temperature Pulse Rate 138 H 137 H 142 H Respiratory Rate 12 14 12 Blood Pressure 125/86 147/75 H 120/70 Pulse Oximetry 97 96 95 07/06/21 16:40 07/06/21 16:45 07/06/21 16:51 Temperature Pulse Rate 134 H 140 H 141 H Respiratory Rate 16 14 13 Blood Pressure 113/89 128/90 127/82 Pulse Oximetry 96 96 96 07/06/21 16:55 07/06/21 17:00 07/06/21 17:06 Temperature Pulse Rate 141 H 145 H 148 H Respiratory Rate 15 19 16 Blood Pressure 122/92 H 121/89 113/76 Pulse Oximetry 96 96 97 07/06/21 17:10 07/06/21 17:15 07/06/21 17:20 Temperature Pulse Rate 139 H 134 H 124 H Respiratory Rate 21 13 17 Blood Pressure 108/80 104/80 107/73 Pulse Oximetry 96 96 96 07/06/21 17:25 07/06/21 17:30 07/06/21 17:35 Temperature Pulse Rate 132 H 137 H 127 H Respiratory Rate 12 12 11 L Blood Pressure 114/69 125/68 135/69 Pulse Oximetry 96 97 97 07/06/21 17:41 07/06/21 17:45 07/06/21 17:51 Temperature Pulse Rate 139 H 137 H 141 H Respiratory Rate 16 11 L 13 Blood Pressure 126/87 126/90 143/79 H Pulse Oximetry 96 96 97 07/06/21 17:58 07/06/21 18:00 07/06/21 18:10 Temperature Pulse Rate 138 H 140 H 139 H Respiratory Rate 15 13 20 Blood Pressure 135/94 H 145/80 H 149/78 H Pulse Oximetry 97 96 96 07/06/21 18:15 07/06/21 18:20 07/06/21 18:30 Temperature Pulse Rate 145 H 139 H 144 H Respiratory Rate 21 11 L 18 Blood Pressure 128/83 144/81 H Pulse Oximetry 98 97 98 07/06/21 18:36 07/06/21 18:40 Temperature Pulse Rate 143 H 142 H Respiratory Rate 15 10 L Blood Pressure 146/106 H 117/88 Pulse Oximetry 98 98 MDM - Arrhythmia/Palpitations Lab Data Result diagrams: 07/06/21 15:50 07/06/21 15:50 Labs: Lab Results 07/06/21 07/06/21 07/06/21 Range/Units 15:50 15:50 15:50 WBC 5.5 (4.5-11.0) X10^3/uL RBC 3.98 L (4.0-5.2) X10^6/uL Hgb 12.9 (12.0-16.0) g/dL Hct 37.1 (36-46) % MCV 93.2 (80-100) fL MCH 32.4 (26-34) PG MCHC 34.7 (30-36) % RDW 14.4 (11.6-14.8) % Plt Count 268 (150-400) X10^3/uL Neut % (Auto) 69.8 (50-75) % Lymph % (Auto) 20.4 L (25-40) % Kaufman % (Auto) 7.3 (3-14) % Eos % (Auto) 2.1 (2-4) % Baso % (Auto) 0.4 (0-2) % Neut # (Auto) 3900 (6614-8564) /uL Lymph # (Auto) 1100 (5648-3364) /uL Kaufman # (Auto) 400 (0-900) /uL Eos # (Auto) 100 (0-450) /uL Baso # (Auto) 0 (0-100) /uL Sodium 136 L (137-145) mmol/L Potassium 4.3 (3.4-5.1) mmol/L Chloride 105 (98-107) mmol/L Carbon Dioxide 28 (22-32) mmol/L BUN 22 H (7-17) mg/dL Creatinine 0.77 (0.52-1.04) mg/dL Estimated GFR > 60.0 (>60) mL/min BUN/Creatinine Ratio 28.6 H (6-22) Glucose 96 (80-110) mg/dL Calcium 9.8 (8.4-10.2) mg/dL Magnesium 2.2 (1.6-2.3) mg/dL Total Bilirubin 0.5 (0.2-1.3) mg/dL AST 64 H (14-36) IU/L ALT 12 (<35) IU/L Alkaline Phosphatase 60 (38-126) U/L Total Creatine Kinase 84 (30-135) U/L CK-MB (CK-2) TNP CK-MB (CK-2) Rel Index TNP Troponin I < 0.012 (0.01-0.034) ng/mL Total Protein 6.6 (6.3-8.2) g/dL Albumin 3.8 (3.5-5.0) g/dL Globulin 2.8 (1.7-4.1) g/dL Albumin/Globulin Ratio 1.4 (1.0-2.8) Lipase 71 (23-300) U/L SARS-CoV-2 (PCR) Negative (Negative) Imaging Data Chest x-ray: Radiologist's Impresson: No acute cardiopulmonary disease. ECG Data Attestation: I personally reviewed and interpreted this ECG as follows: (AFib with RVR rate 130 beats per minute. Narrow complexes. No acute ST elevation.) Critical Care Time Critical Care Time Critical Care Time: Yes Total Critical Care Time: 40 Attestation: Time included initial assessment the patient, review EKG, x-ray and lab data, and multiple clinical decisions. The patient was informed of her clinical situation. Situation was discussed with admitting hospitalist. Discharge Plan Departure Patient Disposition: Admitted as Observation Clinical Impression: Atrial fibrillation with RVR, Hypertension, Hyperlipidemia
[2021-07-06] MEDS: LABETALOL 20 MG/4 ML SYRINGE 10 MG IV (16:19)
[2021-07-06 16:27] LABS: Troponin I < 0.012 ng/mL (0.01-0.034)
[2021-07-06] MEDS: ASPIRIN 81 MG CHEW TAB 324 MG PO (17:08)
[2021-07-06] MEDS: dilTIAZem 5 MG/ML SDV 10 MG IV (17:09)
[2021-07-06] MEDS: dilTIAZem CD 120 MG CAP PO (19:03)
--- NOTE | 2021-07-06 21:03 | DI.ECHO.S_ITS ---
[place] +---------+ [facility] +---------+ : : [address] : : : : [id number] : : : : Phone: [phone] Echocardiogram Report + + :Name: GIL GARCIA Study Date: 07/07/2021 Height: 64 in : :[facility] ReadingLocation: Weight: 133 lb : : Gender: Female BSA: 1.6 m2 : :: 1940 Age: 81 yrs BP: 112/75 mmHg: :Reason For Study: ATRIAL FIBRILLATION : :Ordering Physician: GABRIELLE, : :JUJU Wilye Performed By: Stella Garner : :Referring: JUJU ANTHONY : + + Interpretation Summary The left ventricle is normal in size and wall thickness. Left ventricular systolic function appears normal without focal wall motion abnormalities. Left ventricular ejection fraction is estimated to be 65 +/- 5%. Diastolic function could not be accurately assessed due to atrial fibrillation. The right ventricle is normal size. Right ventricular systolic function is at the lower limits of normal. The right ventricular systolic pressure is estimated to be at least 36 mmHg based on an estimated right atrial pressure of 15 mm Hg. The left atrium is mildly dilated. Right atrial size is normal. There is mild mitral regurgitation. There is mild aortic regurgitation. There is moderate to severe tricuspid regurgitation. There is no other significant valvular heart disease. The aortic root is normal size. There is a trivial to small pericardial effusion noted. Procedure: A two-dimensional transthoracic echocardiogram with color flow and Doppler was performed. The study quality was technically adequate. The patient had an echocardiogram, but there is no comparison study available. The patient was in atrial fibrillation with heart rates between 80-114 bpm during the exam. Left Ventricle: The left ventricle is normal in size and wall thickness. Left ventricular systolic function appears normal without focal wall motion abnormalities. Left ventricular ejection fraction is estimated to be 65 +/- 5%. Diastolic function could not be accurately assessed due to atrial fibrillation. Right Ventricle: The right ventricle is normal size. Right ventricular systolic function is at the lower limits of normal. Atria: The left atrium is mildly dilated. Right atrial size is normal. There is no Doppler evidence for an interatrial shunt. Mitral Valve: The mitral valve leaflets appear mildly thickened, but open well. The mitral valve leaflets are slightly calcified. There is mild mitral regurgitation. Aortic Valve: The aortic valve is trileaflet. The aortic valve opens well. There is no aortic valve stenosis. There is mild aortic regurgitation. Tricuspid Valve: The tricuspid valve is normal in structure and function. There is moderate to severe tricuspid regurgitation. The right ventricular systolic pressure is estimated to be at least 36 mmHg based on an estimated right atrial pressure of 15 mm Hg. Pulmonic Valve: The pulmonic valve leaflets are thin and pliable; valve motion is normal. There is trace pulmonic regurgitation. There is no other significant valvular heart disease. Great Vessels: The aortic root is normal size. The dimensions of the ascending aorta are normal. The IVC is dilated (diameter is greater than 2.1 cm) and it collapses less than 50% with a sniff. This suggests a high right atrial pressure of 15 mm Hg. Pericardium/ Pleura There is a trivial to small pericardial effusion noted. There is no pleural effusion. MMode/2D Measurements & Calculations LVIDd: 4.3 cm LVOT diam: 2.0 cm LVIDs: 2.6 cm Ao root diam: 3.2 cm FS: 39.0 % asc Aorta Diam: 3.2 cm IVSd: 0.73 cm Ao Arch Diam (Prox Trans): 2.9 cm LVPWd: 0.91 cm LV barone. diameter/BSA (cm/m^2): 2.6 LV sys. diameter/BSA (cm/m^2): 1.6 LA A2 area: 21.4 cm2 RA long axis: 5.4 cm LA A4 area: 16.3 cm2 RA area: 16.1 cm2 LA length (vol): 5.2 cm RA vol: 41.0 ml LA vol: 57.0 ml RA : 24.9 ml/m2 LA vol index: 34.7 ml/m2 IVC diam: 3.2 cm RVD1 (basal): 3.0 cm RVD2 (mid): 2.1 cm SANDRA (plan): 2.3 cm2 TAPSE: 1.6 cm Doppler Measurements & Calculations Ao V2 max: 128.4 cm/sec LVOT Max Get: 104.3 cm/sec Ao V2 mean: 87.1 cm/sec LV V1 max P.4 mmHg Ao max P.6 mmHg LV V1 VTI: 18.8 cm Ao mean P.4 mmHg SANDRA(I,D): 2.8 cm2 Ao V2 VTI: 20.6 cm SANDRA(V,D): 2.5 cm2 sev ratio: 0.91 SANDRA indexed to BSA (cm^2/m^2): 1.7 MV E max get: 88.4 cm/sec TR max get: 234.0 cm/sec MV A max get: 1.7 cm/sec TR max P.9 mmHg MV E/A: 51.2 PA V2 max: 90.6 cm/sec Med Peak E' Get: 9.7 cm/sec PA V2 mean: 64.5 cm/sec E/E' med: 9.1 PA mean P.8 mmHg Lat Peak E' Get: 13.0 cm/sec PA pr(Accel): 36.2 mmHg E/E' lat: 6.8 E/e' average: 8.0 MV dec time: 0.18 sec SV(LVOT): 58.4 ml Reading Physician:03:18 PM
--- NOTE | 2021-07-06 21:05 | P.HP_ITS ---
History of Present Illness History of Present Illness Date Patient Seen: 07/06/21 Time Patient Seen: 21:05 Chief complaint: IRREGULAR HEART BEAT Narrative: This is an 81-year-old female with a history of hypertension and nonhealing leg ulcer who presents to the emergency department this afternoon with asymptomatic atrial fibrillation with rapid ventricular response. She has a listed history of paroxysmal atrial fibrillation but describes that on her recent evaluations including a 7 day monitor no AFib was found. She is not on anticoagulation. She does not recall when an echocardiogram may have been done in the past. She has had no shortness of breath, chest pain, palpitations, nausea, vomiting, fevers or COVID symptoms. She is under treatment for hypothyroidism with Thyronine. She has an ulcer on the right ankle that has been nonhealing, followed by dermatology and eventually the wound care center and it was while she was at the W[facility] Care Center having the ulcer looked at this afternoon that the irregular/tachycardic heart beat was noticed and she was sent to the emergency department. Again she had no symptoms. In the emergency department she has received several doses of IV calcium channel ketan and beta ketan with improvement in the heart rate down into the low 100s. She had presented as high as 154. Patient History Medical History (Updated 07/06/21 @ 18:53 by Panda Alford MD) Hyperlipidemia Hypertension Hypothyroidism Insomnia Low bone density Paroxysmal atrial fibrillation Rheumatoid arthritis Family & Social History Family History (Updated 07/06/21 @ 21:09 by Jeanette Blue MD) Father Dementia Mother Dementia Social History: household members family Prior Living Arrangements House Safety & Behavioral: Feels Safe in Current Yes Environment Been Physically Hurt or No Threatened By a Person Suicidal Ideation Description None Suicide Plan Description No Plan Tobacco & Substance use: Tobacco type cigarettes Smoking Status Former smoker alcohol intake current alcohol intake frequency holiday/special occasion Substance Use Type does not use Comment: She lives in a house here in [place] with her sister and several pets. Dr. Villalpando is her primary care physician. She is a retired teacher. She drinks 1 glass of wine every 2-3 weeks. Meds Home Medications and Allergies Home Medications Medication Instructions Recorded Confirmed Type alendronate 70 mg tablet 70 mg PO QWEEK 07/06/21 07/06/21 History amlodipine 2.5 mg tablet 2.5 mg PO DAILY 07/06/21 07/06/21 History estradiol 0.5 mg tablet 0.5 mg PO DAILY 07/06/21 07/06/21 History liothyronine 5 mcg tablet 5 mcg PO DAILY 07/06/21 07/06/21 History losartan 100 mg tablet 100 mg PO DAILY 07/06/21 07/06/21 History methotrexate sodium 2.5 mg tablet 2.5 mg PO QWEEK 07/06/21 07/06/21 History mirtazapine 15 mg disintegrating 15 mg PO DAILY 07/06/21 07/06/21 History tablet rosuvastatin 10 mg tablet 10 mg PO DAILY 07/06/21 07/06/21 History Allergies Allergy/AdvReac Type Severity Reaction Status Date / Time codeine AdvReac Mild ITCHY Verified 07/06/21 18:44 Review of Systems Review of Systems Narrative: No chest pain, palpitations, shortness of breath, dizziness, vomiting, abdominal pain, heat intolerance, weight loss. Also negative for seizures, headaches, dysuria, hematuria and bleeding. Positive for nonhealing ulcer of the right ankle and generalized weakness of aging. Exam Vital Signs (past 8 hours): - 07/06/21 15:33 07/06/21 16:04 07/06/21 16:05 Temperature 97.4 F L Pulse Rate 130 H 126 H 149 H Respiratory Rate 18 18 Blood Pressure 120/90 133/98 H Pulse Oximetry 98 96 98 07/06/21 16:15 07/06/21 16:24 07/06/21 16:27 Temperature Pulse Rate 151 H 151 H 145 H Respiratory Rate 15 12 14 Blood Pressure 110/91 H 113/85 111/70 Pulse Oximetry 96 97 97 07/06/21 16:28 07/06/21 16:30 07/06/21 16:35 Temperature Pulse Rate 138 H 137 H 142 H Respiratory Rate 12 14 12 Blood Pressure 125/86 147/75 H 120/70 Pulse Oximetry 97 96 95 07/06/21 16:40 07/06/21 16:45 07/06/21 16:51 Temperature Pulse Rate 134 H 140 H 141 H Respiratory Rate 16 14 13 Blood Pressure 113/89 128/90 127/82 Pulse Oximetry 96 96 96 07/06/21 16:55 07/06/21 17:00 07/06/21 17:06 Temperature Pulse Rate 141 H 145 H 148 H Respiratory Rate 15 19 16 Blood Pressure 122/92 H 121/89 113/76 Pulse Oximetry 96 96 97 07/06/21 17:10 07/06/21 17:15 07/06/21 17:20 Temperature Pulse Rate 139 H 134 H 124 H Respiratory Rate 21 13 17 Blood Pressure 108/80 104/80 107/73 Pulse Oximetry 96 96 96 07/06/21 17:25 07/06/21 17:30 07/06/21 17:35 Temperature Pulse Rate 132 H 137 H 127 H Respiratory Rate 12 12 11 L Blood Pressure 114/69 125/68 135/69 Pulse Oximetry 96 97 97 07/06/21 17:41 07/06/21 17:45 07/06/21 17:51 Temperature Pulse Rate 139 H 137 H 141 H Respiratory Rate 16 11 L 13 Blood Pressure 126/87 126/90 143/79 H Pulse Oximetry 96 96 97 07/06/21 17:58 07/06/21 18:00 07/06/21 18:10 Temperature Pulse Rate 138 H 140 H 139 H Respiratory Rate 15 13 20 Blood Pressure 135/94 H 145/80 H 149/78 H Pulse Oximetry 97 96 96 07/06/21 18:15 07/06/21 18:20 07/06/21 18:30 Temperature Pulse Rate 145 H 139 H 144 H Respiratory Rate 21 11 L 18 Blood Pressure 128/83 144/81 H Pulse Oximetry 98 97 98 07/06/21 18:36 07/06/21 18:40 07/06/21 18:45 Temperature Pulse Rate 143 H 142 H 141 H Respiratory Rate 15 10 L 16 Blood Pressure 146/106 H 117/88 125/101 H Pulse Oximetry 98 98 99 07/06/21 18:50 07/06/21 18:55 07/06/21 19:00 Temperature Pulse Rate 138 H 141 H 147 H Respiratory Rate 12 13 17 Blood Pressure 130/95 H 125/98 H 140/92 H Pulse Oximetry 97 97 98 07/06/21 19:05 07/06/21 19:10 07/06/21 19:16 Temperature Pulse Rate 130 H 137 H 137 H Respiratory Rate 25 H 11 L 19 Blood Pressure 137/86 135/94 H 148/91 H Pulse Oximetry 97 97 93 07/06/21 19:20 07/06/21 19:25 07/06/21 19:30 Temperature Pulse Rate 142 H 147 H 139 H Respiratory Rate 13 12 11 L Blood Pressure 152/84 H 145/82 H 128/90 Pulse Oximetry 97 97 98 07/06/21 19:35 07/06/21 19:41 07/06/21 19:45 Temperature Pulse Rate 147 H 145 H 146 H Respiratory Rate 12 12 13 Blood Pressure 136/89 134/89 136/75 Pulse Oximetry 97 97 96 07/06/21 19:50 07/06/21 20:00 07/06/21 20:01 Temperature Pulse Rate 148 H 149 H 151 H Respiratory Rate 16 16 20 Blood Pressure 133/71 142/88 H Pulse Oximetry 97 Oxygen Delivery Method Room Air Narrative Exam Narrative: She is alert and oriented x3. No apparent distress Pupils are equally round and reactive to light and accommodation. Extraocular muscles are intact. Sclerae are pink and nonicteric. There are no lymph nodes felt head, neck, supraclavicular area. There is no thyromegaly. There is no thyroid tenderness. JVD is less than 6 cm. No carotid bruits are heard. Heart is irregularly tachycardic without murmur Lungs are clear to auscultation bilaterally Abdomen is soft, bowel sounds positive, nontender, no organomegaly Extremities have no ankle edema Skin no jaundice or rash. The right lateral ankle level skin ulceration is wrapped in several layers and is not removed today. Neurologic exam: Cranial nerves 2-12 test intact. Motor function is 4/5 throughout. There is no tremor. There is no lateralizing deficit. Objective Labs Result Diagrams: 07/06/21 15:50 07/06/21 15:50 Labs: Laboratory Results - last 24 hr 07/06/21 07/06/21 07/06/21 15:50 15:50 15:50 WBC 5.5 RBC 3.98 L Hgb 12.9 Hct 37.1 MCV 93.2 MCH 32.4 MCHC 34.7 RDW 14.4 Plt Count 268 Neut % (Auto) 69.8 Lymph % (Auto) 20.4 L [place] % (Auto) 7.3 Eos % (Auto) 2.1 Baso % (Auto) 0.4 Neut # (Auto) 3900 Lymph # (Auto) 1100 [place] # (Auto) 400 Eos # (Auto) 100 Baso # (Auto) 0 Sodium 136 L Potassium 4.3 Chloride 105 Carbon Dioxide 28 BUN 22 H Creatinine 0.77 Estimated GFR > 60.0 BUN/Creatinine Ratio 28.6 H Glucose 96 Calcium 9.8 Magnesium 2.2 Total Bilirubin 0.5 AST 64 H ALT 12 Alkaline Phosphatase 60 Total Creatine Kinase 84 CK-MB (CK-2) TNP CK-MB (CK-2) Rel Index TNP Troponin I < 0.012 Total Protein 6.6 Albumin 3.8 Globulin 2.8 Albumin/Globulin Ratio 1.4 Lipase 71 SARS-CoV-2 (PCR) Negative Assessment & Plan Assessment & Plan narrative: This is an 81-year-old female with asymptomatic atrial fibrillation. She also has a history of hypertension, rheumatoid arthritis, hypothyroidism and a nonhealing right ankle ulcer. Atrial fibrillation with rapid ventricular response, present on admission. Active. -This was noted incidentally at an office visit for her wound. -check TSH, T4 and T3 along with echocardiogram to look for removable/treatable triggers for her atrial fibrillation. -begin Eliquis for stroke prevention -Continue IV diltiazem push with consideration of return to labetalol push/IV diltiazem drip if needed. -titrate oral beta-ketan/calcium channel ketan appropriately after review of above ordered tests. Nonhealing right ankle wound, present on admission. Active. -wound care consult and consideration of biopsy -unlikely to be a trigger for the atrial fibrillation as there are no reported signs or symptoms of infection. Hypertension, present on admission. Active. -Continue losartan and hold amlodipine Hyperlipidemia, present on admission. Chronic. -continue rosuvastatin Rheumatoid arthritis, present on admission. Chronic. -continue methotrexate weekly. Hypothyroidism, present on admission. Chronic. 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 -check T4, TSH, T3 tonight. Begin Eliquis for DVT prevention. - Time Spent With Patient Critical Care time: I spent a total of [] minutes of critical care time on this patient's care today; this time is exclusive of procedural time. Quality VTE Deep Vein Thrombosis/Pulmonary Embolism Present on Admission: No
[2021-07-06] MEDS: dilTIAZem 125 MG in DEXTROSE 5 % IN WATER 100 ML IV (21:58)
[2021-07-06] MEDS: APIXABAN 5 MG TABLET PO (22:00)
[2021-07-06 22:02] LABS: TSH w/ Reflex to FT4 0.78 uIU/mL (0.47-4.68)
[2021-07-07] VITALS (23 sets, daily range): BP systolic 100–140; BP diastolic 56–75; PULSE 65–128; RESP 13–31; TEMP 36.6; O2SAT 93–97
[2021-07-07 05:07] LABS: Add Manual Diff / Slide Review NO; Basophils Absolute Auto 0 /uL (0-100); Basophils Percent Auto 0.5 % (0-2); Eosinophils Absolute Auto 200 /uL (0-450); Eosinophils Percent Auto 4.2 % (2-4); Hematocrit 38.3 % (36-46); Lymphocytes Absolute Auto 1800 /uL (1100-4500); Lymphocytes Percent Auto 32.3 % (25-40); Mean Corpuscular Volume 94.3 fL (80-100); Monocytes Absolute Auto 400 /uL (0-900); Monocytes Percent Auto 7.9 % (3-14); Neutrophils Absolute Auto 3000 /uL (1500-7000); Neutrophils Percent Auto 55.1 % (50-75); Platelet Count 269 X10^3/uL (150-400); Red Blood Cell Count 4.06 X10^6/uL (4.0-5.2); Red Cell Distribution Width 14.2 % (11.6-14.8); White Blood Cell Count 5.5 X10^3/uL (4.5-11.0)
[2021-07-07 05:16] LABS: BUN Creatinine Ratio 29.9 (6-22); Blood Urea Nitrogen 20 mg/dL (7-17); Calcium 8.8 mg/dL (8.4-10.2); Carbon Dioxide 28 mmol/L (22-32); Chloride 107 mmol/L (98-107); Estimated Glomerular Filt Rate > 60.0 mL/min (>60); Glucose 90 mg/dL (80-110); HEMOLYSIS < 15 (0-50); Potassium 3.6 mmol/L (3.4-5.1); Sodium 138 mmol/L (137-145)
--- NOTE | 2021-07-07 06:46 | PC.NURSE ---
0630- Patient remains in AFib/CVR. Diltiazem gtt at 5mg/hr. Patient is A/O x3. Assisted to the commode while monitoring and IV infusing. No dizziness or C/O sob. Saturation on room air 92-94%. Lungs with bibasilar crackles.
--- NOTE | 2021-07-07 08:08 | P.PN_ITS ---
Subjective Subjective Date Patient Seen: 07/07/21 Interval history: She is seen today to follow-up her atrial fibrillation with rapid ventricular response. Initially this morning she continued tachycardic with AFib up to the 140s on a 5 mg diltiazem drip. She was not tolerating any higher dose without her systolic pressure dropping below 100. About midday she converted to sinus rhythm and has continued with a normal heart rate. The diltiazem is being titrated off and she is being started on oral doses of metoprolol and diltiazem. Her CBC and CMP are normal today with an AST of 64 and ALT of 12 on 07/06. Her echocardiogram shows a normal ejection fraction along with mild valvular heart disease, mild MR and AR with moderate to severe TR. Exam Vital Signs (past 8 hours): Oxygen Delivery Method Room Air Narrative Exam Narrative: Alert and oriented x3, no apparent distress. Heart is irregularly irregular without murmur Lungs are clear to auscultation bilaterally Extremities have no ankle edema. She continues to have a triple wrap dressing over an area of ulceration on the right lateral ankle. Objective Labs Result Diagrams: 07/07/21 04:49 07/07/21 04:49 Labs: Laboratory Results - last 24 hr 07/06/21 07/06/21 07/06/21 15:50 15:50 15:50 WBC 5.5 RBC 3.98 L Hgb 12.9 Hct 37.1 MCV 93.2 MCH 32.4 MCHC 34.7 RDW 14.4 Plt Count 268 Neut % (Auto) 69.8 Lymph % (Auto) 20.4 L [place] % (Auto) 7.3 Eos % (Auto) 2.1 Baso % (Auto) 0.4 Neut # (Auto) 3900 Lymph # (Auto) 1100 [place] # (Auto) 400 Eos # (Auto) 100 Baso # (Auto) 0 Sodium 136 L Potassium 4.3 Chloride 105 Carbon Dioxide 28 BUN 22 H Creatinine 0.77 Estimated GFR > 60.0 BUN/Creatinine Ratio 28.6 H Glucose 96 Calcium 9.8 Magnesium 2.2 Total Bilirubin 0.5 AST 64 H ALT 12 Alkaline Phosphatase 60 Total Creatine Kinase 84 CK-MB (CK-2) TNP CK-MB (CK-2) Rel Index TNP Troponin I < 0.012 Total Protein 6.6 Albumin 3.8 Globulin 2.8 Albumin/Globulin Ratio 1.4 Lipase 71 TSH Nasal Screen MRSA (PCR) SARS-CoV-2 (PCR) Negative 07/06/21 07/06/21 07/07/21 15:50 20:48 04:49 WBC 5.5 RBC 4.06 Hgb 13.0 Hct 38.3 MCV 94.3 MCH 32.0 MCHC 34.0 RDW 14.2 Plt Count 269 Neut % (Auto) 55.1 Lymph % (Auto) 32.3 [place] % (Auto) 7.9 Eos % (Auto) 4.2 H Baso % (Auto) 0.5 Neut # (Auto) 3000 Lymph # (Auto) 1800 [place] # (Auto) 400 Eos # (Auto) 200 Baso # (Auto) 0 Sodium Potassium Chloride Carbon Dioxide BUN Creatinine Estimated GFR BUN/Creatinine Ratio Glucose Calcium Magnesium Total Bilirubin AST ALT Alkaline Phosphatase Total Creatine Kinase CK-MB (CK-2) CK-MB (CK-2) Rel Index Troponin I Total Protein Albumin Globulin Albumin/Globulin Ratio Lipase TSH 0.78 Nasal Screen MRSA (PCR) Negative for mrsa SARS-CoV-2 (PCR) 07/07/21 04:49 WBC RBC Hgb Hct MCV MCH MCHC RDW Plt Count Neut % (Auto) Lymph % (Auto) [place] % (Auto) Eos % (Auto) Baso % (Auto) Neut # (Auto) Lymph # (Auto) [place] # (Auto) Eos # (Auto) Baso # (Auto) Sodium 138 Potassium 3.6 Chloride 107 Carbon Dioxide 28 BUN 20 H Creatinine 0.67 Estimated GFR > 60.0 BUN/Creatinine Ratio 29.9 H Glucose 90 Calcium 8.8 Magnesium 2.0 Total Bilirubin AST ALT Alkaline Phosphatase Total Creatine Kinase CK-MB (CK-2) CK-MB (CK-2) Rel Index Troponin I Total Protein Albumin Globulin Albumin/Globulin Ratio Lipase TSH Nasal Screen MRSA (PCR) SARS-CoV-2 (PCR) [facility] Medical History (Updated 07/06/21 @ 18:53 by Panda Alford MD) Hyperlipidemia Hypertension Hypothyroidism Insomnia Low bone density Paroxysmal atrial fibrillation Rheumatoid arthritis Family History (Updated 07/06/21 @ 21:09 by Jeanette Blue MD) Father Dementia Mother Dementia Social History household members: family Smoking Status: Former smoker alcohol intake: current Assessment & Plan Assessment & Plan narrative: This is an 81-year-old female with asymptomatic atrial fibrillation.? She also has a history of hypertension, rheumatoid arthritis, hypothyroidism and a non healing right ankle ulcer. Atrial fibrillation with rapid ventricular response, present on admission.? Active. -This was noted incidentally at an office visit at wound care for her right ankle wound.? -echocardiogram with 65% ejection fraction and moderate to severe tricuspid regurgitation. -TSH of 0.78 with T3 level still pending -started on Eliquis for stroke prevention -converted to sinus rhythm mid day today. -Transition to oral diltiazem and metoprolol with plan to discharge home on Nonhealing right ankle wound, present on admission.? Active.? -wound care consult and consideration of biopsy -unlikely to be a trigger for the atrial fibrillation as there are no reported signs or symptoms of infection. Hypertension, present on admission.? Active.? -Continue losartan and add diltiazem/metoprolol. Stopping amlodipine. Hyperlipidemia, present on admission.? Chronic.? -continue rosuvastatin Rheumatoid arthritis, present on admission.? Chronic.? -continue methotrexate weekly. Hypothyroidism, present on admission.? Chronic. 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 -normal TSH of 0.78 with T3 level still pending Likely to discharge home on 07/08. Begin Eliquis for DVT prevention Time Spent With Patient Critical Care time: I spent a total of [] minutes of critical care time on this patient's care today; this time is exclusive of procedural time. Quality VTE Deep Vein Thrombosis/Pulmonary Embolism Present on Admission: No
[2021-07-07] MEDS: LOSARTAN 50 MG TABLET 100 MG PO (08:38)
[2021-07-07] MEDS: ATORVASTATIN 20 MG TABLET PO (08:38)
[2021-07-07] MEDS: MIRTAZAPINE 15 MG TABLET PO (08:38)
[2021-07-07] MEDS: LIOTHYRONINE 5 MCG TABLET PO (08:39)
[2021-07-07] MEDS: APIXABAN 5 MG TABLET PO ×2 (08:39→21:00)
--- NOTE | 2021-07-07 11:17 | PC.NURSE ---
Addendum entered by Day Rey R.N. 07/07/21 14:03: 1403 Dilt gtt turned off, transitioned to PO metoprolol and Dilt. will continue to monitor Addendum entered by Day Rey R.N. 07/07/21 12:06: 1154 Pt converted to NSR with a HR 70, Dr Blue notified with place new orders for PO meds so that we can begin titrating dilt gtt off. Original Note: Dayshift note A/Ox4, Cardiac rhythm remains in AFIB/RVR-CVR with Dilt gtt infusing at 5mg/hr, unable to titrate gtt any higher due to BP dropping. Assisted to Bedside commode, while tele monitoring and IV infusing as ordered, pt denies dizziness or SOB. SpO2 94-96% on room air, lungs noted to have bilateral basilar crackles. Bed low and locked, call light within reach, will continue to treat and monitor as ordered.
[2021-07-07] MEDS: estradioL 1 MG TABLET 0.5 MG PO (12:26)
[2021-07-07] MEDS: METOPROLOL ER 50 MG TABLET PO (13:22)
[2021-07-07] MEDS: dilTIAZem CD 240 MG CAP PO (13:22)
--- NOTE | 2021-07-07 16:00 | CM.IDA ---
Initial DCP Assessment Note Pt is an 81 yo female, resident of [place], arrives from her wound care appt w/ asymptomatic afib, admitted inpatient for treatment of afib, on IV Dilt PCP: uJarez Villalpando Payer: NEIL/SAIGE Reviewed chart, met w/patient to introduce role. 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 Patient has no children and no family members available to help either she or her sister as they age. Patient is currently indp and active at baseline states she attends wound care approx once weekly, but this is recent, as she just had only her second appt. Patient intends to drive herself home upon DC Patient admits that she has been strong and health her entire adult life and has not planned for the eventual day she and her sister will both require assistance; suggested patient begin to plan for this. Will have oncoming [employer] provide patient a Senior Resource Guide upon DC; if time allows Plan: Patient plans to DC home, car in the parking lot, w/close outpatient f/u and resumption of outpatient wound care for non-healing ankle wound RACHAEL Montez Discharge Planning/Care Management CM Discharge Assessment Start: 07/07/21 15:58 Freq: Status: Active Protocol: Document 07/07/21 15:58 TAN (Rec: 07/07/21 16:00 TAN [id number]) Discharge Planning Assessment Assigned Customer Service Specialist RACHAEL Hall DPOA/Assigned Designee Name sister Cochran Contact Information [phone] Advance Directives? No History Provided By Patient,Medical Record Prior Living Arrangements House Household Members family Type of transporation used prior to Drives own vehicle admit Independent with ADL's Yes Is patient alert and oriented? Yes Barriers to Discharge No Discharge Plan Home Transportation Arrangement Self
[2021-07-08 06:02] VITALS: BP 120/57; PULSE 68; RESP 18; TEMP 36.6; O2SAT 94
--- NOTE | 2021-07-08 06:04 | PC.SBAR ---
SITUATION: [] BACKGROUND: [] ASSESSMENT: [] RECOMMENDATION: [] RESPONSE: []
[2021-07-08 08:21] LABS: Triiodothyronine T3 Total 142 ng/dL (71-180)
[2021-07-08 08:50] VITALS: BP 114/60; PULSE 69
[2021-07-08] MEDS: MIRTAZAPINE 15 MG TABLET PO (08:50)
[2021-07-08] MEDS: LIOTHYRONINE 5 MCG TABLET PO (08:50)
[2021-07-08] MEDS: METOPROLOL ER 50 MG TABLET PO (08:50)
[2021-07-08 08:52] VITALS: BP 114/60; PULSE 69
[2021-07-08] MEDS: LOSARTAN 50 MG TABLET 100 MG PO (08:52)
[2021-07-08] MEDS: dilTIAZem CD 240 MG CAP PO (08:52)
[2021-07-08] MEDS: ATORVASTATIN 20 MG TABLET PO (08:52)
[2021-07-08] MEDS: APIXABAN 5 MG TABLET PO (08:52)
[2021-07-08] MEDS: estradioL 1 MG TABLET 0.5 MG PO (08:53)
--- NOTE | 2021-07-08 18:58 | P.DS_ITS ---
History of Present Illness History of Present Illness Chief complaint: IRREGULAR HEART BEAT Narrative: 81-year-old female with a history of hypertension and nonhealing leg ulcer who presents to the emergency department this afternoon with asymptomatic atrial fibrillation with rapid ventricular response.? She has a listed history of paroxysmal atrial fibrillation but describes that on her recent evaluations inc luding a 7 day monitor no AFib was found.? She is not on anticoagulation.? She does not recall when an echocardiogram may have been done in the past.? She has had no shortness of breath, chest pain, palpitations, nausea, vomiting, fevers or COVID symptoms.? She is under treatment for hypothyroidism with Thyronine.? She has an ulcer on the right ankle that has been nonhealing, followed by dermatology and eventually the wound care center and it was while she was at the Wound Care Center having the ulcer looked at this afternoon that the irregular/tachycardic heart beat was noticed and she was sent to the emergency department.? Again she had no symptoms.? In the emergency department she has rec eived several doses of IV calcium channel ketan and beta ketan with improvement in the heart rate down into the low 100s.? She had presented as high as 154. Discharge Providers Provider Date of admission: 07/06/21 19:51 Discharge Date: 07/08/21 Primary care physician: Juarez Villalpando MD Discharge provider: Aaron Rivers MD Summary Hospital Course Discharge Diagnosis: 1. Paroxysmal atrial fibrillation with RVR 2. 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 Hypertension 4. Hyperlipidemia 5. Rheumatoid arthritis 6. Hypothyroidism Patient was initially put on IV diltiazem drip and started on apixaban for AFib with RVR. Following day she converted to sinus rhythm. She has remained in sinus rhythm on oral diltiazem and metoprolol. Her echo showed preserved LVEF 65%, mild MR and AR and moderate to severe TR. Patient has no respiratory or cardiac symptoms. She will follow-up with PCP. Status at Discharge Cognitive/behavioral status at discharge: oriented Functional status at discharge: independent ambulation Overall status at discharge: patient is back to baseline Exam Vital Signs (past 8 hours): Oxygen Delivery Method Room Air Narrative Exam Narrative: General: Alert, NAD Lungs: Clear Heart: Regular rhythm Extremities: No edema Objective Labs Result Diagrams: 07/07/21 04:49 07/07/21 04:49 Labs: Laboratory Results - last 24 hr 07/06/21 15:50 Total T3 142 PFSH Medical History (Updated 07/06/21 @ 18:53 by Panda Alford MD) Hyperlipidemia Hypertension Hypothyroidism Insomnia Low bone density Paroxysmal atrial fibrillation Rheumatoid arthritis Family History (Updated 07/06/21 @ 21:09 by Jeanette Blue MD) Father Dementia Mother Dementia Social History household members: family Smoking Status: Former smoker alcohol intake: current Discharge Plan Discharge Plan Patient Disposition: Home Provider Discharge Comment: You were treated for atrial fibrillation. Take medications as directed and follow up at primary care practice. Discharge orders & Medications Prescriptions: New metoprolol succinate 50 mg Tablet Extended Release 24 Hr 50 mg PO DAILY Qty: 30 0RF diltiazem HCl [Cardizem CD] 240 mg Capsule,Extended Release 24hr 240 mg PO DAILY Qty: 30 0RF Eliquis 5 mg Tablet 5 mg PO BID Qty: 60 0RF Continued alendronate 70 mg Tablet 70 mg PO QWEEK 0RF liothyronine 5 mcg Tablet 5 mcg PO DAILY 0RF methotrexate sodium 2.5 mg Tablet 2.5 mg PO QWEEK 0RF estradiol 0.5 mg Tablet 0.5 mg PO DAILY 0RF Rx Instructions: off 5 days; repeat cycle mirtazapine 15 mg Tablet,Disintegrating 15 mg PO DAILY 0RF losartan 100 mg Tablet 100 mg PO DAILY 0RF rosuvastatin 10 mg Tablet 10 mg PO DAILY 0RF Discontinued amlodipine 2.5 mg Tablet 2.5 mg PO DAILY 0RF Follow up/Referrals: Juarez Villalpando MD [Primary Care Provider] - Diet/Activity/Treatments Diet: Regular Skin/Wound/Dressing Care Other wound treatment: Continue to see wound care as ordered by primary care Discharge Data Primary Care Provider: Juarez Villalpando V Quality VTE Deep Vein Thrombosis/Pulmonary Embolism Present on Admission: No
== END 2021-07-08 09:50 | disposition home or self-care (01) | DRG 309 ==
LOC: ED 18:53 → AC 19:51 → ICU 20:06
PROVIDERS: Admitting Provider Family Medicine; Emergency Provider Emergency Medicine; PCP Internal Medicine; Referring Provider Emergency Medicine; Visit Provider Family Medicine
DX: I48.0 Paroxysmal atrial fibrillation (principal); L97.319 Non-pressure chronic ulcer of right ankle with unspecified severity; M06.9 Rheumatoid arthritis, unspecified; I10 Essential (primary) hypertension; E78.5 Hyperlipidemia, unspecified; E03.9 Hypothyroidism, unspecified; Z87.891 Personal history of nicotine dependence; Z20.822 Contact with and (suspected) exposure to COVID-19
CPT/HCPCS: 11042; 29581; 36415; 71045; 80048; 80053; 82550; 83690; 83735; 84443; 84480; 84484; 85025; 87070; 87077; 87205; 87635; 87797; 93005; 93010; 93306; 96374; 96375; 99213; 99284; 99291; C9803

== ENCOUNTER → 2021-07-11 15:30 | Outpatient (CLI) | payer MEDICARE, SELFPAY ==
[2021-07-06 20:38] VITALS: BMI 22.8
== END ==
PROVIDERS: PCP Internal Medicine; Referring Provider Internal Medicine; Visit Provider Family Medicine
DX: I87.2 Venous insufficiency (chronic) (peripheral) (principal); L97.312 Non-pressure chronic ulcer of right ankle with fat layer exposed; B37.2 Candidiasis of skin and nail; R60.0 Localized edema; L95.0 Livedoid vasculitis; I48.91 Unspecified atrial fibrillation; M06.9 Rheumatoid arthritis, unspecified; Z79.01 Long term (current) use of anticoagulants
CPT/HCPCS: 99214

== ENCOUNTER 2021-07-12 12:41 | Observation (INO) | payer MEDICARE, SELFPAY ==
[2021-07-06 20:38] VITALS: BMI 22.8
[2021-07-12] VITALS (124 sets, daily range): BP systolic 94–130; BP diastolic 61–96; PULSE 72–152; RESP 10–37; TEMP 36.3–36.7; O2SAT 91–99; BMI 22.6
[2021-07-12] MEDS: ASPIRIN 81 MG CHEW TAB 324 MG PO (12:56)
[2021-07-12] MEDS: SODIUM CHLORIDE 0.9% 1,000 ML 150 ML IV (12:56)
[2021-07-12 13:00] LABS: Add Manual Diff / Slide Review NO; Basophils Absolute Auto 0 /uL (0-100); Basophils Percent Auto 0.6 % (0-2); Eosinophils Absolute Auto 100 /uL (0-450); Eosinophils Percent Auto 1.4 % (2-4); Hematocrit 39.6 % (36-46); Hemoglobin 13.8 g/dL (12.0-16.0); Lymphocytes Absolute Auto 1000 /uL (1100-4500); Lymphocytes Percent Auto 15.2 % (25-40); Mean Corpuscular HGB Conc 34.8 % (30-36); Mean Corpuscular Hemoglobin 32.7 PG (26-34); Mean Corpuscular Volume 93.9 fL (80-100); Monocytes Absolute Auto 500 /uL (0-900); Monocytes Percent Auto 7.7 % (3-14); Neutrophils Absolute Auto 5000 /uL (1500-7000); Neutrophils Percent Auto 75.1 % (50-75); Platelet Count 329 X10^3/uL (150-400); Red Blood Cell Count 4.22 X10^6/uL (4.0-5.2); Red Cell Distribution Width 14.7 % (11.6-14.8); White Blood Cell Count 6.7 X10^3/uL (4.5-11.0)
--- NOTE | 2021-07-12 13:04 | PC.NURSE ---
Correction to charting. IV placement by EMS was in the right wrist, not the right AC.
[2021-07-12 13:32] LABS: Alanine Aminotransferase 12 IU/L (<35); Albumin 3.9 g/dL (3.5-5.0); Albumin Globulin Ratio 1.4 (1.0-2.8); Alkaline Phosphatase 63 U/L (38-126); Aspartate Aminotransferase 37 IU/L (14-36); BUN Creatinine Ratio 29.7 (6-22); Bilirubin Total 0.5 mg/dL (0.2-1.3); Blood Urea Nitrogen 22 mg/dL (7-17); Calcium 9.3 mg/dL (8.4-10.2); Carbon Dioxide 28 mmol/L (22-32); Chloride 105 mmol/L (98-107); Creatine Kinase 74 U/L (30-135); Estimated Glomerular Filt Rate > 60.0 mL/min (>60); Globulin 2.8 g/dL (1.7-4.1); Glucose 111 mg/dL (80-110); HEMOLYSIS < 15 (0-50); Lipase 99 U/L (23-300); Potassium 4.1 mmol/L (3.4-5.1); Sodium 137 mmol/L (137-145); Total Protein 6.7 g/dL (6.3-8.2)
[2021-07-12 13:43] LABS: NT-proBNP (BNP-Adult 18+) 1150 pg/mL (<450); Troponin I < 0.012 ng/mL (0.01-0.034)
--- NOTE | 2021-07-12 13:50 | ED_ITS ---
HPI - Dizziness General Chief Complaint: Dizziness Stated Complaint: afib Time Seen by Provider: 07/12/21 12:42 Source: patient and EMS Mode of arrival: EMS History of Present Illness HPI Narrative: 81-year-old female former smoker with history of recently diagnosed atrial fibrillation due to recurrent episode of palpitations, shortness of breath and a rapid heart rate. On their arrival EMS found her heart rate to be in the 130s and she had converted to a normal sinus rhythm by the time she arrived here. On arrival she is not having any symptoms. She denies dizziness, weakness or lightheadedness. She has no chest pain or shortness of breath. She states she has been taking her medications as directed and denies any dietary change. Related Data Home Medications Medication Instructions Recorded Confirmed alendronate 70 mg tablet 70 mg PO QWEEK 07/06/21 07/06/21 estradiol 0.5 mg tablet 0.5 mg PO DAILY 07/06/21 07/06/21 liothyronine 5 mcg tablet 5 mcg PO DAILY 07/06/21 07/06/21 losartan 100 mg tablet 100 mg PO DAILY 07/06/21 07/06/21 methotrexate sodium 2.5 mg tablet 2.5 mg PO QWEEK 07/06/21 07/06/21 mirtazapine 15 mg disintegrating 15 mg PO DAILY 07/06/21 07/06/21 tablet rosuvastatin 10 mg tablet 10 mg PO DAILY 07/06/21 07/06/21 Previous Rx's Medication Instructions Recorded apixaban 5 mg tablet (Eliquis) 5 mg PO BID #60 tab 07/08/21 diltiazem HCl 240 mg 240 mg PO DAILY #30 cap 07/08/21 capsule,extended release 24 hr (Cardizem CD) metoprolol succinate 50 mg 50 mg PO DAILY #30 tab 07/08/21 tablet,extended release 24 hr Allergies Allergy/AdvReac Type Severity Reaction Status Date / Time codeine AdvReac Mild ITCHY Verified 07/06/21 18:44 Review of Systems Review of Systems Narrative: GENERAL: Denies chills, fatigue, malaise, fever, sweats. HEENT: Denies sinus pain, ear pain, sore throat, difficulty swallowing, dizziness. RESPIRATORY: See HPI CARDIOVASCULAR: See HPI GASTROINTESTINAL: Denies nausea, vomiting, abdominal pain, diarrhea, constipati on, melena. : Denies dysuria, frequency, incontinence, hematuria, urinary retention. MUSCULOSKELETAL: denies weakness, joint pain, or bony pain SKIN: Denies rash, skin lesions, or other NEUROLOGIC: See HPI PSYCHIATRIC: No concerning psychosocial issues. 12 point review of systems is negative except for those stated above Patient History Medical History Hyperlipidemia Hypertension Hypothyroidism Insomnia Low bone density Paroxysmal atrial fibrillation Rheumatoid arthritis Family History Father Dementia Mother Dementia Social History household members: family Smoking Status: Former smoker alcohol intake: current Smoking Status: Former smoker alcohol intake frequency: holidays/special occasions only Substance Use Type: does not use Exam Narrative Exam Narrative: GENERAL: [81] year old patient appears stated age. Well-developed patient, in mild distress. HEAD: Atraumatic. Normocephalic. EYES: Pupils equal round and reactive. Extraocular motions intact. No scleral ic terus. No injection or drainage. ENT: Nose without bleeding, purulent drainage. Throat without erythema, tonsillar hypertrophy or exudate. Airway patent. NECK: Trachea midline. Non tender CARDIOVASCULAR: Regular rate and rhythm without murmurs, gallops, or rubs. RESPIRATORY: Clear to auscultation. Breath sounds equal bilaterally. No wheezes, rales, or rhonchi. GASTROINTESTINAL: Abdomen soft, non-tender, nondistended. EXTREMITIES: No edema or joint tenderness. BACK: Nontender without deformity or crepitance. No flank tenderness. NEURO: AOx3. SKIN: No rash or erythema of visible areas Initial Vital Signs Initial Vital Signs: Vital Signs Pulse Rate 125 H 07/12/21 12:46 Pulse Oximetry 99 07/12/21 12:46 Course Orders Ordered: ED Orders 07/12/21 12:40 Complete Blood Count AUTO DIFF Stat Comprehensive Metabolic Panel Stat Lipase Stat NT-proBNP (BNP-Adult 18+) Stat Troponin & CK Cardiac Panel Stat 07/12/21 12:46 EKG-12 Lead Stat 07/12/21 15:30 COVID19 -Nasal swab/Pre-Proc Stat Sodium Chloride (Normal Saline 0.9%) 1,000 mls @ 150 mls/hr IV CONT CLARE Last Admin: 07/12/21 12:56 Dose: 150 mls/hr Documented by: JOSE Diltiazem HCl 125 mg/ Dextrose 125 mls @ 5 mls/hr IV TITRATE CLARE; Protocol Last Titration: 07/12/21 15:27 Dose: 5 mg/hr, 5 mls/hr Documented by: Admin: 07/12/21 14:45 Dose: 3 mg/hr, 3 mls/hr Documented by: EDDA Discontinued Medications Aspirin (Aspirin 81 Mg Chew Tab) 324 mg PO NOW ONE Stop: 07/12/21 12:46 Last Admin: 07/12/21 12:56 Dose: 324 mg Documented by: JOSE Diltiazem HCl (Diltiazem 5 Mg/Ml Sdv) 10 mg IV NOW ONE Stop: 07/12/21 14:05 Last Admin: 07/12/21 14:22 Dose: 10 mg Documented by: EDDA Reevaluation(s) Reevaluation #1: Patient doing well on Cardizem drip, currently at 3, heart rate is in the low 100s, blood pressure in the 110s. Consultations Consultation #1: Discussed with on-call Cardiology. She shares the opinion that given patient has only been on anticoagulation for a few days she is not a candidate for electrocardioversion, she recommends rate control, admission to hospitalist. Vital Signs Vital signs: Vital Signs - 8 hr 07/12/21 12:46 07/12/21 12:48 07/12/21 12:50 Temperature Pulse Rate 125 H 152 H 139 H Respiratory Rate 18 21 Blood Pressure 124/81 Pulse Oximetry 99 99 98 07/12/21 12:54 07/12/21 12:55 07/12/21 13:00 Temperature 98.0 F Pulse Rate 140 H 142 H 142 H Respiratory Rate 19 11 L 17 Blood Pressure 124/81 115/79 Pulse Oximetry 99 98 98 07/12/21 13:05 07/12/21 13:10 07/12/21 13:15 Temperature Pulse Rate 143 H 144 H 134 H Respiratory Rate 16 23 13 Blood Pressure Pulse Oximetry 99 91 98 07/12/21 13:20 07/12/21 13:25 07/12/21 13:30 Temperature Pulse Rate 142 H 147 H 134 H Respiratory Rate 14 11 L 10 L Blood Pressure Pulse Oximetry 98 98 98 07/12/21 13:35 07/12/21 13:40 07/12/21 13:45 Temperature Pulse Rate 139 H 137 H 140 H Respiratory Rate 13 14 12 Blood Pressure Pulse Oximetry 98 98 98 07/12/21 13:50 07/12/21 13:55 07/12/21 14:00 Temperature Pulse Rate 135 H 138 H 130 H Respiratory Rate 13 12 12 Blood Pressure 108/85 Pulse Oximetry 99 99 98 07/12/21 14:05 07/12/21 14:10 07/12/21 14:15 Temperature Pulse Rate 144 H 144 H 144 H Respiratory Rate 13 12 16 Blood Pressure Pulse Oximetry 98 98 98 07/12/21 14:20 07/12/21 14:22 07/12/21 14:23 Temperature Pulse Rate 147 H 136 H 146 H Respiratory Rate 27 H 22 Blood Pressure 108/85 114/82 Pulse Oximetry 98 97 07/12/21 14:25 07/12/21 14:30 07/12/21 14:31 Temperature Pulse Rate 146 H 121 H 124 H Respiratory Rate 21 15 13 Blood Pressure 118/96 H 118/74 Pulse Oximetry 98 98 98 07/12/21 14:32 07/12/21 14:35 07/12/21 14:36 Temperature Pulse Rate 124 H 126 H 120 H Respiratory Rate 15 15 15 Blood Pressure 103/66 112/80 Pulse Oximetry 98 98 97 07/12/21 14:39 07/12/21 14:40 07/12/21 14:45 Temperature Pulse Rate 117 H 125 H 121 H Respiratory Rate 12 13 14 Blood Pressure 113/68 113/68 Pulse Oximetry 97 97 98 07/12/21 14:46 07/12/21 14:50 07/12/21 14:55 Temperature Pulse Rate 122 H 106 H 124 H Respiratory Rate 16 15 14 Blood Pressure 120/88 116/71 126/61 Pulse Oximetry 97 98 98 07/12/21 15:00 07/12/21 15:05 07/12/21 15:10 Temperature Pulse Rate 129 H 120 H 117 H Respiratory Rate 17 14 15 Blood Pressure 116/63 130/69 Pulse Oximetry 97 97 97 07/12/21 15:11 07/12/21 15:15 07/12/21 15:20 Temperature Pulse Rate 115 H 125 H 115 H Respiratory Rate 16 18 14 Blood Pressure 108/75 103/77 105/88 Pulse Oximetry 97 97 97 07/12/21 15:25 Temperature Pulse Rate 138 H Respiratory Rate 25 H Blood Pressure 110/86 Pulse Oximetry 96 MDM - Dizziness Lab Data Result diagrams: 07/12/21 12:40 07/12/21 12:40 Labs: Lab Results 07/12/21 07/12/21 Range/Units 12:40 12:40 WBC 6.7 (4.5-11.0) X10^3/uL RBC 4.22 (4.0-5.2) X10^6/uL Hgb 13.8 (12.0-16.0) g/dL Hct 39.6 (36-46) % MCV 93.9 (80-100) fL MCH 32.7 (26-34) PG MCHC 34.8 (30-36) % RDW 14.7 (11.6-14.8) % Plt Count 329 (150-400) X10^3/uL Neut % (Auto) 75.1 H (50-75) % Lymph % (Auto) 15.2 L (25-40) % [place] % (Auto) 7.7 (3-14) % Eos % (Auto) 1.4 L (2-4) % Baso % (Auto) 0.6 (0-2) % Neut # (Auto) 5000 (6431-2865) /uL Lymph # (Auto) 1000 L (7161-2763) /uL [place] # (Auto) 500 (0-900) /uL Eos # (Auto) 100 (0-450) /uL Baso # (Auto) 0 (0-100) /uL Sodium 137 (137-145) mmol/L Potassium 4.1 (3.4-5.1) mmol/L Chloride 105 (98-107) mmol/L Carbon Dioxide 28 (22-32) mmol/L BUN 22 H (7-17) mg/dL Creatinine 0.74 (0.52-1.04) mg/dL Estimated GFR > 60.0 (>60) mL/min BUN/Creatinine Ratio 29.7 H (6-22) Glucose 111 H (80-110) mg/dL Calcium 9.3 (8.4-10.2) mg/dL Total Bilirubin 0.5 (0.2-1.3) mg/dL AST 37 H (14-36) IU/L ALT 12 (<35) IU/L Alkaline Phosphatase 63 (38-126) U/L Total Creatine Kinase 74 (30-135) U/L CK-MB (CK-2) TNP CK-MB (CK-2) Rel Index TNP Troponin I < 0.012 (0.01-0.034) ng/mL NT-Pro-B Natriuret Pep 1150 H (<450) pg/mL Total Protein 6.7 (6.3-8.2) g/dL Albumin 3.9 (3.5-5.0) g/dL Globulin 2.8 (1.7-4.1) g/dL Albumin/Globulin Ratio 1.4 (1.0-2.8) Lipase 99 (23-300) U/L Discharge Plan Departure Patient Disposition: Admitted as Observation Clinical Impression: Atrial fibrillation with RVR Admit Date/Time: 07/12/21 15:25 Admit Provider: Grant Joseph
[2021-07-12] MEDS: dilTIAZem 5 MG/ML SDV 10 MG IV (14:22)
[2021-07-12] MEDS: dilTIAZem 125 MG in DEXTROSE 5 % IN WATER 100 ML IV (14:45)
[2021-07-12 17:01] LABS: COVID19 -Nasal RAPID Negative (Negative)
--- NOTE | 2021-07-12 17:20 | PM.HP.1 ---
History of Present Illness History of Present Illness Date Patient Seen: 07/12/21 Time Patient Seen: 17:21 Date of Onset of Symptoms: 07/12/21 Chief complaint: afib Narrative: This is an 81-year-old female with a past medical history of hypertension, paroxysmal atrial fibrillation, nonhealing leg ulcer who presented from wound care to the emergency room with AFib with RVR. The patient was recently admitted less than a week ago for AFib with RVR. She converted the prior admission to sinus rhythm with metoprolol and diltiazem. She had an echocardiogram which showed a normal ejection fraction and no significant wall motion abnormalities. She was started on apixaban as well that admission. She was feeling well earlier this week, but this morning she noticed a change in her overall well-being. She notes that she is slightly short of breath specifically when going up hills, and feels a generalized malaise. This had been gone since her prior admission but returned today. She denies any chest pain but does endorse intermittent palpitations. She denies any nausea, vomiting, abdominal pain, dysuria, or urinary frequency. She has had no recent fever or chills. She denies cough or lower extremity edema. She reports she was compliant with medications upon discharge. In the emergency room, the patient was noted to be in AFib with RVR with rates as high as 140-150. She was rapidly started on a diltiazem infusion. Initial laboratory evaluation showed a normal potassium, no magnesium was checked. The remainder of her labs were notable for mildly elevated proBNP of 1150. Troponin was negative. The remainder of her chemistries were unremarkable. CBCs showed no significant abnormalities. COVID testing was negative. Patient History Medical History Hyperlipidemia Hypertension Hypothyroidism Insomnia Low bone density Paroxysmal atrial fibrillation Rheumatoid arthritis Surgical History H/O: hysterectomy Family & Social History Family History Father Dementia Mother Dementia Atrial fibrillation Social History: household members family Prior Living Arrangements House Safety & Behavioral: Feels Safe in Current Yes Environment Been Physically Hurt or No Threatened By a Person Suicidal Ideation Description None Suicide Plan Description No Plan Tobacco & Substance use: Tobacco type cigarettes Smoking Status Former smoker alcohol intake current alcohol intake frequency holiday/special occasion Substance Use Type does not use Meds Home Medications and Allergies Home Medications Medication Instructions Recorded Confirmed Type alendronate 70 mg tablet 70 mg PO QWEEK 07/06/21 07/12/21 History estradiol 0.5 mg tablet 0.5 mg PO DAILY 07/06/21 07/12/21 History liothyronine 5 mcg tablet 5 mcg PO DAILY 07/06/21 07/12/21 History losartan 100 mg tablet 100 mg PO DAILY 07/06/21 07/12/21 History methotrexate sodium 2.5 mg tablet 2.5 mg PO QWEEK 07/06/21 07/12/21 History mirtazapine 15 mg disintegrating 15 mg PO DAILY 07/06/21 07/12/21 History tablet rosuvastatin 10 mg tablet 10 mg PO DAILY 07/06/21 07/12/21 History apixaban 5 mg tablet (Eliquis) 5 mg PO BID #60 tab 07/08/21 07/12/21 Rx diltiazem HCl 240 mg 240 mg PO DAILY #30 cap 07/08/21 07/12/21 Rx capsule,extended release 24 hr (Cardizem CD) metoprolol succinate 50 mg 50 mg PO DAILY #30 tab 07/08/21 07/12/21 Rx tablet,extended release 24 hr Allergies Allergy/AdvReac Type Severity Reaction Status Date / Time codeine AdvReac Mild ITCHY Verified 07/06/21 18:44 Review of Systems Review of Systems Narrative: All other systems reviewed with the patient and are negative unless otherwise stated. Exam Vital Signs (past 8 hours): - 07/12/21 12:46 07/12/21 12:48 07/12/21 12:50 Temperature Pulse Rate 125 H 152 H 139 H Respiratory Rate 18 21 Blood Pressure 124/81 Pulse Oximetry 99 99 98 07/12/21 12:54 07/12/21 12:55 07/12/21 13:00 Temperature 98.0 F Pulse Rate 140 H 142 H 142 H Respiratory Rate 19 11 L 17 Blood Pressure 124/81 115/79 Pulse Oximetry 99 98 98 07/12/21 13:05 07/12/21 13:10 07/12/21 13:15 Temperature Pulse Rate 143 H 144 H 134 H Respiratory Rate 16 23 13 Blood Pressure Pulse Oximetry 99 91 98 07/12/21 13:20 07/12/21 13:25 07/12/21 13:30 Temperature Pulse Rate 142 H 147 H 134 H Respiratory Rate 14 11 L 10 L Blood Pressure Pulse Oximetry 98 98 98 07/12/21 13:35 07/12/21 13:40 07/12/21 13:45 Temperature Pulse Rate 139 H 137 H 140 H Respiratory Rate 13 14 12 Blood Pressure Pulse Oximetry 98 98 98 07/12/21 13:50 07/12/21 13:55 07/12/21 14:00 Temperature Pulse Rate 135 H 138 H 130 H Respiratory Rate 13 12 12 Blood Pressure 108/85 Pulse Oximetry 99 99 98 07/12/21 14:05 07/12/21 14:10 07/12/21 14:15 Temperature Pulse Rate 144 H 144 H 144 H Respiratory Rate 13 12 16 Blood Pressure Pulse Oximetry 98 98 98 07/12/21 14:20 07/12/21 14:22 07/12/21 14:23 Temperature Pulse Rate 147 H 136 H 146 H Respiratory Rate 27 H 22 Blood Pressure 108/85 114/82 Pulse Oximetry 98 97 07/12/21 14:25 07/12/21 14:30 07/12/21 14:31 Temperature Pulse Rate 146 H 121 H 124 H Respiratory Rate 21 15 13 Blood Pressure 118/96 H 118/74 Pulse Oximetry 98 98 98 07/12/21 14:32 07/12/21 14:35 07/12/21 14:36 Temperature Pulse Rate 124 H 126 H 120 H Respiratory Rate 15 15 15 Blood Pressure 103/66 112/80 Pulse Oximetry 98 98 97 07/12/21 14:39 07/12/21 14:40 07/12/21 14:45 Temperature Pulse Rate 117 H 125 H 121 H Respiratory Rate 12 13 14 Blood Pressure 113/68 113/68 Pulse Oximetry 97 97 98 07/12/21 14:46 07/12/21 14:50 07/12/21 14:55 Temperature Pulse Rate 122 H 106 H 124 H Respiratory Rate 16 15 14 Blood Pressure 120/88 116/71 126/61 Pulse Oximetry 97 98 98 07/12/21 15:00 07/12/21 15:05 07/12/21 15:10 Temperature Pulse Rate 129 H 120 H 117 H Respiratory Rate 17 14 15 Blood Pressure 116/63 130/69 Pulse Oximetry 97 97 97 07/12/21 15:11 07/12/21 15:15 07/12/21 15:20 Temperature Pulse Rate 115 H 125 H 115 H Respiratory Rate 16 18 14 Blood Pressure 108/75 103/77 105/88 Pulse Oximetry 97 97 97 07/12/21 15:25 07/12/21 15:30 07/12/21 15:35 Temperature Pulse Rate 138 H 135 H 140 H Respiratory Rate 25 H 14 25 H Blood Pressure 110/86 96/76 108/68 Pulse Oximetry 96 98 98 07/12/21 15:40 07/12/21 15:41 07/12/21 15:45 Temperature Pulse Rate 136 H 134 H 133 H Respiratory Rate 14 20 15 Blood Pressure 115/92 H 100/72 Pulse Oximetry 98 07/12/21 15:50 07/12/21 15:55 07/12/21 16:00 Temperature Pulse Rate 138 H 113 H 130 H Respiratory Rate 17 19 16 Blood Pressure 110/79 114/69 103/63 Pulse Oximetry 98 98 98 07/12/21 16:05 07/12/21 16:09 07/12/21 16:10 Temperature Pulse Rate 146 H 129 H Respiratory Rate 25 H 16 Blood Pressure 113/70 94/70 Pulse Oximetry 97 97 07/12/21 16:51 07/12/21 16:56 Temperature 97.4 F L Pulse Rate 141 H Respiratory Rate 15 Blood Pressure 109/68 Pulse Oximetry 97 97 Oxygen Delivery Method Room Air Narrative Exam Narrative: GENERAL APPEARANCE: Well developed, well nourished, elderly female in no acute distress. SKIN: Inspection of the skin reveals no rashes, ulcerations or petechiae other than bandaged chronic wounds. HEENT: Normocephalic atraumatic, extraocular muscles are intact, oropharynx is clear and mucous membranes are moist, neck is supple without adenopathy NECK: Supple and symmetric. There was no thyroid enlargement, and no tenderness, or masses were felt. CHEST: Normal AP diameter and normal contour without any kyphoscoliosis. LUNGS: Auscultation of the lungs revealed no wheezes, rhonchi, or rales. CARDIOVASCULAR: Tachycardic, irregularly irregular. No significant murmurs, rubs, or gallops. Peripheral pulses were 2+ and symmetric. ABDOMEN: Soft and nontender with normal bowel sounds. No ascites was noted. MUSCULOSKELETAL: There was no tenderness or effusions noted. Muscle strength and tone were normal. EXTREMITIES: No cyanosis, clubbing or edema. She has a bandage to her right lower extremity where her wound bandages are. These were not removed. NEUROLOGIC: Alert and oriented x 3. Normal affect. Strength is +5/5 in the Upper Extremities and Lower Extremities Bilaterally. Sensation to touch was normal. Objective ECG Impression: Atrial fibrillation with rapid ventricular response, no significant ST or T-wave abnormalities. Labs Result Diagrams: 07/12/21 12:40 07/12/21 12:40 Labs: Laboratory Results - last 24 hr 07/12/21 07/12/21 07/12/21 12:40 12:40 15:30 WBC 6.7 RBC 4.22 Hgb 13.8 Hct 39.6 MCV 93.9 MCH 32.7 MCHC 34.8 RDW 14.7 Plt Count 329 Neut % (Auto) 75.1 H Lymph % (Auto) 15.2 L [place] % (Auto) 7.7 Eos % (Auto) 1.4 L Baso % (Auto) 0.6 Neut # (Auto) 5000 Lymph # (Auto) 1000 L [place] # (Auto) 500 Eos # (Auto) 100 Baso # (Auto) 0 Sodium 137 Potassium 4.1 Chloride 105 Carbon Dioxide 28 BUN 22 H Creatinine 0.74 Estimated GFR > 60.0 BUN/Creatinine Ratio 29.7 H Glucose 111 H Calcium 9.3 Total Bilirubin 0.5 AST 37 H ALT 12 Alkaline Phosphatase 63 Total Creatine Kinase 74 CK-MB (CK-2) TNP CK-MB (CK-2) Rel Index TNP Troponin I < 0.012 NT-Pro-B Natriuret Pep 1150 H Total Protein 6.7 Albumin 3.9 Globulin 2.8 Albumin/Globulin Ratio 1.4 Lipase 99 SARS-CoV-2 (PCR) Negative Assessment & Plan Assessment & Plan narrative: This is an 81-year-old female recently discharged less than a week ago after an admission for AFib with RVR who is readmitted with recurrent atrial fibrillation with RVR on a diltiazem infusion currently. 1. Paroxysmal atrial fibrillation with rapid ventricular response, present on admission - continue apixaban - hold home losartan in favor of rate control agents - increase metoprolol to 50 mg BID, continue dilt 240 mg qd. Titrate up as BP allows. Wean from diltiazem infusion as able with rate. - no chest pain, initial troponin negative, EKG without ischemia. - check Magnesium level (add on to ER labs), replete if <2. - check a CXR given recent dyspnea on exertion to evaluate for possible volume overload in setting of RVR, consider diuresis. 2. Hypertension, chronic - hold losartan as noted above in favor of rate control agents at this time. 3. Hyperlipidemia, chronic - replace home statin with formulary. 4. Hypothyroidism, chronic - tsh 07/06/21 was 0.78. Continue home medications Code: Full, surrogate decision maker is the patient's sister Dispo: Admit to ICU under observation status for diltiazem infusion and her stay is not expected to exceed 2 midnights I have utilized all available immediate resources to obtain, update, or review the patient's current medications. Time Spent With Patient Critical Care time: I spent a total of [] minutes of critical care time on this patient's care today; this time is exclusive of procedural time. Quality VTE Deep Vein Thrombosis/Pulmonary Embolism Present on Admission: No MIPS - Admit I confirm the patient?s Advance Care Plan is present, Code status is documented, Surrogate decision maker is in patient?s record [If Yes, STOP here]: Yes
--- NOTE | 2021-07-12 17:30 | DI.RAD.S_ITS ---
PROCEDURE: XR CHEST 1V INDICATIONS: dyspnea on exertion, afib with RVR TECHNIQUE: One view of the chest was acquired. COMPARISON: [facility], CR, XR CHEST 1V, 07/06/2021, 15:50. [facility], CR, XR CHEST 2V, 07/28/2018, 14:27. FINDINGS: Surgical changes and devices: None. Lungs and pleura: Lungs appear clear. No pleural effusions or pneumothorax. Mediastinum: Mediastinal contours appear unchanged. Heart size is within normal limits. Bones and chest wall: No suspicious bony lesions. Overlying soft tissues appear unremarkable. IMPRESSION: No acute cardiopulmonary abnormality. Dictated by: Evangelista Blevins M.D. on 07/12/2021 at 17:59 Approved by: Evangelista Blevins M.D. on 07/12/2021 at 17:59
--- NOTE | 2021-07-12 18:01 | PC.NURSE ---
admit note: Pt arrived via gurney from ED, Dilt gtt infusing at 5mL/hr, pt A/Ox4, AFib RVR on tele (see vitals for capture), able to ambulate to bathroom, SB assist. Oriented to room and call light system, Dr. Joseph at bedside, new orders placed, will continue to treat and monitor as ordered
--- NOTE | 2021-07-12 21:16 | PM.CN.EICU ---
History of Present Illness Consult details Chief complaint: afib :: This patient was seen via real time interactive two-way audiovisual telecommunication. Narrative: Notified by [employer] director during 1999 ICU multidisciplinary rounds of this patient's admission to ICU status due to a diltiazem infusion. She has known paroxysmal AF and was admitted recently for same. She was sent from wound care today to ED for same. HR was in 140s-150s. [facility] Medical History Hyperlipidemia Hypertension Hypothyroidism Insomnia Low bone density Paroxysmal atrial fibrillation Rheumatoid arthritis Surgical History H/O: hysterectomy Family History Father Dementia Mother Dementia Atrial fibrillation Social History household members: family Smoking Status: Former smoker alcohol intake: current Current Medications Current Medications Medications: Home Medications alendronate 70 mg tablet 70 mg PO QWEEK 07/06/21 [History Confirmed 07/12/21] estradiol 0.5 mg tablet 0.5 mg PO DAILY 07/06/21 [History Confirmed 07/12/21] liothyronine 5 mcg tablet 5 mcg PO DAILY 07/06/21 [History Confirmed 07/12/21] losartan 100 mg tablet 100 mg PO DAILY 07/06/21 [History Confirmed 07/12/21] methotrexate sodium 2.5 mg tablet 2.5 mg PO QWEEK 07/06/21 [History Confirmed 07/12/21] mirtazapine 15 mg disintegrating tablet 15 mg PO DAILY 07/06/21 [History Confirmed 07/12/21] rosuvastatin 10 mg tablet 10 mg PO DAILY 07/06/21 [History Confirmed 07/12/21] apixaban 5 mg tablet (Eliquis) 5 mg PO BID #60 tab 07/08/21 [Rx Confirmed 07/12/21] diltiazem HCl 240 mg capsule,extended release 24 hr (Cardizem CD) 240 mg PO DAILY #30 cap 07/08/21 [Rx Confirmed 07/12/21] metoprolol succinate 50 mg tablet,extended release 24 hr 50 mg PO DAILY #30 tab 07/08/21 [Rx Confirmed 07/12/21] Visit Medications (administered) Generic Name Dose Route Start Last Admin Trade Name Ciaran PRN Reason Stop Dose Admin Diltiazem HCl 125 mg/ Dextrose 125 mls @ 5 mls/hr 07/12/21 14:04 07/12/21 20:03 IV 7.5 mg/hr TITRATE CLARE 7.5 mls/hr Titration Protocol 5 MG/HR Exam Vital Signs (past 8 hours): - 07/12/21 13:20 07/12/21 13:25 07/12/21 13:30 Temperature Pulse Rate 142 H 147 H 134 H Respiratory Rate 14 11 L 10 L Blood Pressure Pulse Oximetry 98 98 98 07/12/21 13:35 07/12/21 13:40 07/12/21 13:45 Temperature Pulse Rate 139 H 137 H 140 H Respiratory Rate 13 14 12 Blood Pressure Pulse Oximetry 98 98 98 07/12/21 13:50 07/12/21 13:55 07/12/21 14:00 Temperature Pulse Rate 135 H 138 H 130 H Respiratory Rate 13 12 12 Blood Pressure 108/85 Pulse Oximetry 99 99 98 07/12/21 14:05 07/12/21 14:10 07/12/21 14:15 Temperature Pulse Rate 144 H 144 H 144 H Respiratory Rate 13 12 16 Blood Pressure Pulse Oximetry 98 98 98 07/12/21 14:20 07/12/21 14:22 07/12/21 14:23 Temperature Pulse Rate 147 H 136 H 146 H Respiratory Rate 27 H 22 Blood Pressure 108/85 114/82 Pulse Oximetry 98 97 07/12/21 14:25 07/12/21 14:30 07/12/21 14:31 Temperature Pulse Rate 146 H 121 H 124 H Respiratory Rate 21 15 13 Blood Pressure 118/96 H 118/74 Pulse Oximetry 98 98 98 07/12/21 14:32 07/12/21 14:35 07/12/21 14:36 Temperature Pulse Rate 124 H 126 H 120 H Respiratory Rate 15 15 15 Blood Pressure 103/66 112/80 Pulse Oximetry 98 98 97 07/12/21 14:39 07/12/21 14:40 07/12/21 14:45 Temperature Pulse Rate 117 H 125 H 121 H Respiratory Rate 12 13 14 Blood Pressure 113/68 113/68 Pulse Oximetry 97 97 98 07/12/21 14:46 07/12/21 14:50 07/12/21 14:55 Temperature Pulse Rate 122 H 106 H 124 H Respiratory Rate 16 15 14 Blood Pressure 120/88 116/71 126/61 Pulse Oximetry 97 98 98 07/12/21 15:00 07/12/21 15:05 07/12/21 15:10 Temperature Pulse Rate 129 H 120 H 117 H Respiratory Rate 17 14 15 Blood Pressure 116/63 130/69 Pulse Oximetry 97 97 97 07/12/21 15:11 07/12/21 15:15 07/12/21 15:20 Temperature Pulse Rate 115 H 125 H 115 H Respiratory Rate 16 18 14 Blood Pressure 108/75 103/77 105/88 Pulse Oximetry 97 97 97 07/12/21 15:25 07/12/21 15:30 07/12/21 15:35 Temperature Pulse Rate 138 H 135 H 140 H Respiratory Rate 25 H 14 25 H Blood Pressure 110/86 96/76 108/68 Pulse Oximetry 96 98 98 07/12/21 15:40 07/12/21 15:41 07/12/21 15:45 Temperature Pulse Rate 136 H 134 H 133 H Respiratory Rate 14 20 15 Blood Pressure 115/92 H 100/72 Pulse Oximetry 98 07/12/21 15:50 07/12/21 15:55 07/12/21 16:00 Temperature Pulse Rate 138 H 113 H 130 H Respiratory Rate 17 19 16 Blood Pressure 110/79 114/69 103/63 Pulse Oximetry 98 98 98 07/12/21 16:05 07/12/21 16:09 07/12/21 16:10 Temperature Pulse Rate 146 H 129 H Respiratory Rate 25 H 16 Blood Pressure 113/70 94/70 Pulse Oximetry 97 97 07/12/21 16:31 07/12/21 16:33 07/12/21 16:35 Temperature Pulse Rate 142 H 138 H 134 H Respiratory Rate 22 16 14 Blood Pressure 109/68 Pulse Oximetry 97 07/12/21 16:40 07/12/21 16:45 07/12/21 16:50 Temperature Pulse Rate 141 H 143 H 144 H Respiratory Rate 18 14 23 Blood Pressure Pulse Oximetry 97 96 97 07/12/21 16:51 07/12/21 16:55 07/12/21 16:56 Temperature 97.4 F L Pulse Rate 133 H 141 H Respiratory Rate 23 15 Blood Pressure 109/68 Pulse Oximetry 97 97 97 07/12/21 17:00 07/12/21 17:05 07/12/21 17:10 Temperature Pulse Rate 132 H 139 H 123 H Respiratory Rate 20 26 H 26 H Blood Pressure 101/69 Pulse Oximetry 96 96 96 07/12/21 17:15 07/12/21 17:20 07/12/21 17:25 Temperature Pulse Rate 130 H 142 H 141 H Respiratory Rate 25 H 28 H 25 H Blood Pressure Pulse Oximetry 97 95 95 07/12/21 17:30 07/12/21 17:35 07/12/21 17:40 Temperature Pulse Rate 144 H 143 H 139 H Respiratory Rate 26 H 25 H 19 Blood Pressure Pulse Oximetry 96 95 95 07/12/21 17:45 07/12/21 17:50 07/12/21 17:55 Temperature Pulse Rate 142 H 145 H 139 H Respiratory Rate 29 H 31 H 26 H Blood Pressure Pulse Oximetry 94 94 94 07/12/21 17:58 07/12/21 18:00 07/12/21 18:05 Temperature Pulse Rate 136 H 140 H 135 H Respiratory Rate 28 H 17 33 H Blood Pressure 96/65 112/77 Pulse Oximetry 94 94 93 07/12/21 19:52 07/12/21 20:19 07/12/21 20:47 Temperature 97.4 F L Pulse Rate 104 H Respiratory Rate 19 Blood Pressure 117/81 Pulse Oximetry 95 95 94 Oxygen Delivery Method Room Air Oxygen Flow Rate 0 Const General: cooperative, comfortable and well developed Cardio Other: HR in 90s on diltiazem 7.5 mg/hr; remains in AF Objective Labs Result Diagrams: 07/12/21 12:40 07/12/21 12:40 Labs: Laboratory Results - last 24 hr 07/12/21 07/12/21 07/12/21 12:40 12:40 15:30 WBC 6.7 RBC 4.22 Hgb 13.8 Hct 39.6 MCV 93.9 MCH 32.7 MCHC 34.8 RDW 14.7 Plt Count 329 Neut % (Auto) 75.1 H Lymph % (Auto) 15.2 L [place] % (Auto) 7.7 Eos % (Auto) 1.4 L Baso % (Auto) 0.6 Neut # (Auto) 5000 Lymph # (Auto) 1000 L [place] # (Auto) 500 Eos # (Auto) 100 Baso # (Auto) 0 Sodium 137 Potassium 4.1 Chloride 105 Carbon Dioxide 28 BUN 22 H Creatinine 0.74 Estimated GFR > 60.0 BUN/Creatinine Ratio 29.7 H Glucose 111 H Calcium 9.3 Total Bilirubin 0.5 AST 37 H ALT 12 Alkaline Phosphatase 63 Total Creatine Kinase 74 CK-MB (CK-2) TNP CK-MB (CK-2) Rel Index TNP Troponin I < 0.012 NT-Pro-B Natriuret Pep 1150 H Total Protein 6.7 Albumin 3.9 Globulin 2.8 Albumin/Globulin Ratio 1.4 Lipase 99 SARS-CoV-2 (PCR) Negative Assessment & Plan Assessment and plan (1) Atrial fibrillation with RVR: Status: Acute Plan: -Continue diltiazem/apixaban as per bedside team -TFTs were checked on 07/06 --> normal Time Spent With Patient Critical Care time: I spent a total of [] minutes of critical care time on this patient's care today; this time is exclusive of procedural time.
[2021-07-12 21:39] LABS: Magnesium 2.2 mg/dL (1.6-2.3)
[2021-07-12] MEDS: METOPROLOL ER 50 MG TABLET PO (21:46)
[2021-07-12] MEDS: APIXABAN 5 MG TABLET PO (21:46)
[2021-07-12] MEDS: ATORVASTATIN 20 MG TABLET 40 MG PO (21:46)
[2021-07-13] VITALS (20 sets, daily range): BP systolic 97–117; BP diastolic 62–75; PULSE 68–103; RESP 13–34; TEMP 36.1–36.6; O2SAT 92–97
[2021-07-13 05:28] LABS: Add Manual Diff / Slide Review NO; Basophils Absolute Auto 0 /uL (0-100); Basophils Percent Auto 0.7 % (0-2); Eosinophils Absolute Auto 200 /uL (0-450); Eosinophils Percent Auto 3.4 % (2-4); Hematocrit 39.7 % (36-46); Hemoglobin 13.4 g/dL (12.0-16.0); Lymphocytes Absolute Auto 1600 /uL (1100-4500); Lymphocytes Percent Auto 31.6 % (25-40); Mean Corpuscular HGB Conc 33.7 % (30-36); Mean Corpuscular Hemoglobin 31.7 PG (26-34); Mean Corpuscular Volume 93.9 fL (80-100); Monocytes Absolute Auto 500 /uL (0-900); Monocytes Percent Auto 9.2 % (3-14); Neutrophils Absolute Auto 2800 /uL (1500-7000); Neutrophils Percent Auto 55.1 % (50-75); Platelet Count 264 X10^3/uL (150-400); Red Blood Cell Count 4.23 X10^6/uL (4.0-5.2); Red Cell Distribution Width 14.5 % (11.6-14.8); White Blood Cell Count 5.1 X10^3/uL (4.5-11.0)
[2021-07-13 05:34] LABS: BUN Creatinine Ratio 28.1 (6-22); Blood Urea Nitrogen 16 mg/dL (7-17); Carbon Dioxide 29 mmol/L (22-32); Chloride 107 mmol/L (98-107); Estimated Glomerular Filt Rate > 60.0 mL/min (>60); Glucose 92 mg/dL (80-110); HEMOLYSIS < 15 (0-50); Potassium 3.8 mmol/L (3.4-5.1); Sodium 136 mmol/L (137-145)
[2021-07-13 06:01] LABS: TSH w/ Reflex to FT4 2.41 uIU/mL (0.47-4.68)
[2021-07-13] MEDS: METOPROLOL ER 50 MG TABLET PO (08:25)
[2021-07-13] MEDS: APIXABAN 5 MG TABLET PO (08:25)
[2021-07-13] MEDS: LIOTHYRONINE 5 MCG TABLET PO (08:25)
[2021-07-13] MEDS: dilTIAZem CD 240 MG CAP PO (08:25)
--- NOTE | 2021-07-13 10:11 | PC.NURSE ---
Pt converted to SR 60s at 0825. Diltiazem infusion stopped. AM meds given. Reported rhythm change to Dr. Joseph.
--- NOTE | 2021-07-13 10:31 | PM.DS.1 ---
History of Present Illness History of Present Illness Date Patient Seen: 07/13/21 Time Patient Seen: 10:31 Chief complaint: afib Narrative: This is an 81-year-old female with a past medical history of hypertension, paroxysmal atrial fibrillation, nonhealing leg ulcer who presented from wound care to the emergency room with AFib with RVR. The patient was recently admitted less than a week ago for AFib with RVR. She converted the prior admission to sinus rhythm with metoprolol and diltiazem. She had an echocardiogram which showed a normal ejection fraction and no significant wall motion abnormalities. She was started on apixaban as well that admission. She was feeling well earlier this week, but this morning she noticed a change in her overall well-being. She notes that she is slightly short of breath specifically when going up hills, and feels a generalized malaise. This had been gone since her prior admission but returned today. She denies any chest pain but does endorse intermittent palpitations. She denies any nausea, vomiting, abdominal pain, dysuria, or urinary frequency. She has had no recent fever or chills. She denies cough or lower extremity edema. She reports she was compliant with medications upon discharge. In the emergency room, the patient was noted to be in AFib with RVR with rates as high as 140-150. She was rapidly started on a diltiazem infusion. Initial laboratory evaluation showed a normal potassium, no magnesium was checked. The remainder of her labs were notable for mildly elevated proBNP of 1150. Troponin was negative. The remainder of her chemistries were unremarkable. CBCs showed no significant abnormalities. COVID testing was negative. Discharge Providers Provider Date of admission: 07/12/21 15:25 Discharge Date: 07/13/21 Primary care physician: Juarez Villalpando MD Discharge provider: Grant Joseph DO Summary Hospital Course Discharge Diagnosis: 1. Paroxysmal atrial fibrillation with rapid ventricular response, present on admission 2. Hypertension, chronic ? 3. Hyperlipidemia, chronic 4. Hypothyroidism, chronic Hospital Course: This is an 81-year-old female recently discharged less than a week ago after an admission for AFib with RVR who is readmitted with recurrent atrial fibrillation with RVR on a diltiazem infusion. Her BP were initially soft, but her losartan was held in favor of further rate control. She converted to NSR the following morning, and remained in sinus rhythm for multiple hours after infusion had been turned off. Her home losartan was held,and recommend that she increase metoprolol to 50 mg BID for additional rate control at discharge and follow up with cardiology as previously recommended. She had previously been discharged on apixaban for stroke prevention last admission. Exam Vital Signs (past 8 hours): - 07/13/21 03:00 07/13/21 03:25 07/13/21 03:30 Temperature Pulse Rate 80 89 79 Respiratory Rate 28 H 19 13 Blood Pressure 111/72 Pulse Oximetry 95 95 95 07/13/21 03:53 07/13/21 03:55 07/13/21 04:00 Temperature 96.9 F L Pulse Rate 89 89 86 Respiratory Rate 16 15 14 Blood Pressure 109/65 109/65 Pulse Oximetry 94 94 95 07/13/21 04:30 07/13/21 04:33 07/13/21 04:34 Temperature Pulse Rate 85 81 Respiratory Rate 16 16 Blood Pressure 97/62 Pulse Oximetry 94 94 07/13/21 04:48 07/13/21 08:00 07/13/21 09:18 Temperature 97.9 F 97.5 F L Pulse Rate 77 68 Respiratory Rate 16 17 Blood Pressure 97/62 117/75 Pulse Oximetry 92 97 96 Oxygen Delivery Method Room Air Oxygen Flow Rate 0 Narrative Exam Narrative: GENERAL APPEARANCE: Well developed, well nourished, elderly female in no acute distress. SKIN: Inspection of the skin reveals no rashes, ulcerations or petechiae other than bandaged chronic wounds. HEENT:? Normocephalic atraumatic, extraocular muscles are intact, oropharynx is clear and mucous membranes are moist, neck is supple without adenopathy NECK: Supple and symmetric. There was no thyroid enlargement, and no tenderness, or masses were felt. CHEST: Normal AP diameter and normal contour without any kyphoscoliosis. LUNGS: Auscultation of the lungs revealed no wheezes, rhonchi, or rales. CARDIOVASCULAR:? Tachycardic, irregularly irregular.? No significant murmurs, rubs, or gallops.? Peripheral pulses were 2+ and symmetric. ABDOMEN: Soft and nontender with normal bowel sounds. No ascites was noted. MUSCULOSKELETAL: There was no tenderness or effusions noted. Muscle strength and tone were normal. EXTREMITIES: No cyanosis, clubbing or edema.? She has a bandage to her right lower extremity where her wound bandages are.? These were not removed. NEUROLOGIC: Alert and oriented x 3. Normal affect. Strength is +5/5 in the Upper Extremities and Lower Extremities Bilaterally. Sensation to touch was normal. Objective Labs Result Diagrams: 07/13/21 04:50 07/13/21 04:50 Labs: Laboratory Results - last 24 hr 07/12/21 07/12/21 07/12/21 12:40 12:40 13:15 WBC 6.7 RBC 4.22 Hgb 13.8 Hct 39.6 MCV 93.9 MCH 32.7 MCHC 34.8 RDW 14.7 Plt Count 329 Neut % (Auto) 75.1 H Lymph % (Auto) 15.2 L [place] % (Auto) 7.7 Eos % (Auto) 1.4 L Baso % (Auto) 0.6 Neut # (Auto) 5000 Lymph # (Auto) 1000 L [place] # (Auto) 500 Eos # (Auto) 100 Baso # (Auto) 0 Sodium 137 Potassium 4.1 Chloride 105 Carbon Dioxide 28 BUN 22 H Creatinine 0.74 Estimated GFR > 60.0 BUN/Creatinine Ratio 29.7 H Glucose 111 H Calcium 9.3 Magnesium 2.2 Total Bilirubin 0.5 AST 37 H ALT 12 Alkaline Phosphatase 63 Total Creatine Kinase 74 CK-MB (CK-2) TNP CK-MB (CK-2) Rel Index TNP Troponin I < 0.012 NT-Pro-B Natriuret Pep 1150 H Total Protein 6.7 Albumin 3.9 Globulin 2.8 Albumin/Globulin Ratio 1.4 Lipase 99 TSH SARS-CoV-2 (PCR) 07/12/21 07/13/21 07/13/21 15:30 04:50 04:50 WBC 5.1 RBC 4.23 Hgb 13.4 Hct 39.7 MCV 93.9 MCH 31.7 MCHC 33.7 RDW 14.5 Plt Count 264 Neut % (Auto) 55.1 D Lymph % (Auto) 31.6 [place] % (Auto) 9.2 Eos % (Auto) 3.4 Baso % (Auto) 0.7 Neut # (Auto) 2800 Lymph # (Auto) 1600 [place] # (Auto) 500 Eos # (Auto) 200 Baso # (Auto) 0 Sodium 136 L Potassium 3.8 Chloride 107 Carbon Dioxide 29 BUN 16 Creatinine 0.57 Estimated GFR > 60.0 BUN/Creatinine Ratio 28.1 H Glucose 92 Calcium 9.0 Magnesium Total Bilirubin AST ALT Alkaline Phosphatase Total Creatine Kinase CK-MB (CK-2) CK-MB (CK-2) Rel Index Troponin I NT-Pro-B Natriuret Pep Total Protein Albumin Globulin Albumin/Globulin Ratio Lipase TSH SARS-CoV-2 (PCR) Negative 07/13/21 04:50 WBC RBC Hgb Hct MCV MCH MCHC RDW Plt Count Neut % (Auto) Lymph % (Auto) [place] % (Auto) Eos % (Auto) Baso % (Auto) Neut # (Auto) Lymph # (Auto) [place] # (Auto) Eos # (Auto) Baso # (Auto) Sodium Potassium Chloride Carbon Dioxide BUN Creatinine Estimated GFR BUN/Creatinine Ratio Glucose Calcium Magnesium Total Bilirubin AST ALT Alkaline Phosphatase Total Creatine Kinase CK-MB (CK-2) CK-MB (CK-2) Rel Index Troponin I NT-Pro-B Natriuret Pep Total Protein Albumin Globulin Albumin/Globulin Ratio Lipase TSH 2.41 D SARS-CoV-2 (PCR) [facility] Medical History Hyperlipidemia Hypertension Hypothyroidism Insomnia Low bone density Paroxysmal atrial fibrillation Rheumatoid arthritis Surgical History H/O: hysterectomy Family History Father Dementia Mother Dementia Atrial fibrillation Social History household members: family Smoking Status: Former smoker alcohol intake: current Discharge Plan Discharge Plan Patient Disposition: Home Provider Discharge Comment: You were admitted to the hospital with a fast heart rate. Medications were changed slightly. Please follow up with your primary care provider. Discharge orders & Medications Prescriptions: New metoprolol succinate 50 mg Tablet Extended Release 24 Hr 50 mg PO BID 30 Days Qty: 60 0RF Continued alendronate 70 mg Tablet 70 mg PO QWEEK 0RF liothyronine 5 mcg Tablet 5 mcg PO DAILY 0RF methotrexate sodium 2.5 mg Tablet 2.5 mg PO QWEEK 0RF estradiol 0.5 mg Tablet 0.5 mg PO DAILY 0RF Rx Instructions: off 5 days; repeat cycle mirtazapine 15 mg Tablet,Disintegrating 15 mg PO DAILY 0RF rosuvastatin 10 mg Tablet 10 mg PO DAILY 0RF diltiazem HCl [Cardizem CD] 240 mg Capsule,Extended Release 24hr 240 mg PO DAILY Qty: 30 0RF Eliquis 5 mg Tablet 5 mg PO BID Qty: 60 0RF Discontinued losartan 100 mg Tablet 100 mg PO DAILY 0RF metoprolol succinate 50 mg Tablet Extended Release 24 Hr 50 mg PO DAILY Qty: 30 0RF Follow up/Referrals: Juarez Villalpando MD [Primary Care Provider] - Diet/Activity/Treatments Diet: Diet as Tolerated Activity: As tolerated Visit Report/Discharge Packet Instructions: DI for Atrial Fibrillation, Metoprolol Discharge Data Primary Care Provider: Juarez Villalpando V Attending Provider: Grant Joseph VTE Deep Vein Thrombosis/Pulmonary Embolism Present on Admission: No
--- NOTE | 2021-07-13 11:35 | PC.NURSE ---
Pt with orders for d/c to home. Educational packet was given and reviewed. Reviewed medications, dosages, times, next dose due. Reviewed side effects. Pt verbalizes understanding. Pt states that she has a f/u appt on Sunday 07/[address] Villalpando's former practice. States that she is unable to see Dr. Villalpando until July when he moves to his new practice. Pt states she will perform own wound care at home today as she normally does. PIV removed and telemetry monitoring off. Pt is ambulating independently in room. Dressed herself and gathered own belongings. Left via w/c to POV with for discharge. No distress at time of dc.
== END 2021-07-13 11:30 | disposition home or self-care (01) ==
LOC: ED 15:24 → AC 15:27 → ICU 07-13 06:55
PROVIDERS: Admitting Provider Internal Medicine; Emergency Provider Emergency Medicine; PCP Internal Medicine; Referring Provider Emergency Medicine; Visit Provider Internal Medicine
DX: I48.0 Paroxysmal atrial fibrillation (principal); I10 Essential (primary) hypertension; E03.9 Hypothyroidism, unspecified; E78.5 Hyperlipidemia, unspecified; Z20.822 Contact with and (suspected) exposure to COVID-19
CPT/HCPCS: 36415; 71045; 80048; 80053; 82550; 83690; 83735; 83880; 84443; 84484; 85025; 87635; 93005; 93010; 94760; 96361; 96365; 96366; 96376; 99284; C9803; G0378

== ENCOUNTER → 2021-07-19 14:53 | Outpatient (CLI) | payer MEDICARE, SELFPAY ==
[2021-07-12 16:51] VITALS: BMI 22.6
== END ==
PROVIDERS: PCP Internal Medicine; Referring Provider Internal Medicine; Visit Provider Family Medicine
DX: I87.2 Venous insufficiency (chronic) (peripheral) (principal); L97.312 Non-pressure chronic ulcer of right ankle with fat layer exposed; B37.2 Candidiasis of skin and nail; L95.0 Livedoid vasculitis; R60.0 Localized edema; M06.9 Rheumatoid arthritis, unspecified; D84.821 Immunodeficiency due to drugs; Z79.899 Other long term (current) drug therapy
CPT/HCPCS: 99213

== ENCOUNTER → 2021-08-02 15:46 | Outpatient (CLI) | payer MEDICARE, SELFPAY ==
[2021-07-12 16:51] VITALS: BMI 22.6
== END ==
PROVIDERS: PCP Internal Medicine; Referring Provider Internal Medicine; Visit Provider Family Medicine
DX: I87.2 Venous insufficiency (chronic) (peripheral) (principal); R60.0 Localized edema; L95.0 Livedoid vasculitis; I83.91 Asymptomatic varicose veins of right lower extremity; M06.9 Rheumatoid arthritis, unspecified; Z79.01 Long term (current) use of anticoagulants; Z79.899 Other long term (current) drug therapy
CPT/HCPCS: 99212; 99213

== ENCOUNTER → 2021-08-31 10:57 | Outpatient (CLI) | payer MEDICARE, SELFPAY ==
[2021-08-31 10:44] VITALS: BMI 22.6
[2021-08-31 11:55] LABS: Add Manual Diff / Slide Review NO; Basophils Absolute Auto 0 /uL (0-100); Basophils Percent Auto 0.5 % (0-2); Eosinophils Absolute Auto 200 /uL (0-450); Eosinophils Percent Auto 4.1 % (2-4); Hematocrit 36.9 % (36-46); Hemoglobin 12.9 g/dL (12.0-16.0); Lymphocytes Absolute Auto 1100 /uL (1100-4500); Lymphocytes Percent Auto 23.7 % (25-40); Mean Corpuscular HGB Conc 34.9 % (30-36); Mean Corpuscular Hemoglobin 32.6 PG (26-34); Mean Corpuscular Volume 93.4 fL (80-100); Monocytes Absolute Auto 400 /uL (0-900); Monocytes Percent Auto 7.7 % (3-14); Neutrophils Absolute Auto 2900 /uL (1500-7000); Platelet Count 219 X10^3/uL (150-400); Red Blood Cell Count 3.95 X10^6/uL (4.0-5.2); Red Cell Distribution Width 15.2 % (11.6-14.8); White Blood Cell Count 4.6 X10^3/uL (4.5-11.0)
[2021-08-31 12:08] LABS: Alanine Aminotransferase 11 IU/L (<35); Albumin 3.8 g/dL (3.5-5.0); Albumin Globulin Ratio 1.5 (1.0-2.8); Bilirubin Total 0.5 mg/dL (0.2-1.3); Chloride 103 mmol/L (98-107); Estimated Glomerular Filt Rate > 60.0 mL/min (>60); HEMOLYSIS < 15 (0-50); Potassium 4.3 mmol/L (3.4-5.1)
[2021-08-31 12:23] LABS: Vitamin D 25 Hydroxy (D3) 53.9 ng/mL (30.0-100.0)
[2021-08-31 12:53] LABS: Alkaline Phosphatase 58 U/L (38-126); Aspartate Aminotransferase 38 IU/L (14-36); BUN Creatinine Ratio 38.2 (6-22); Blood Urea Nitrogen 29 mg/dL (7-17); Carbon Dioxide 31 mmol/L (22-32); Cholesterol 132 mg/dL (140-199); Globulin 2.6 g/dL (1.7-4.1); Glucose 92 mg/dL (80-110); HDL Cholesterol 90 mg/dL (40-60); LDL Cholesterol Calculated 31 mg/dL (<100); Sodium 137 mmol/L (137-145); Total Protein 6.4 g/dL (6.3-8.2); Triglycerides 56 mg/dL (35-150)
[2021-08-31 13:34] LABS: TSH w/ Reflex to FT4 0.73 uIU/mL (0.47-4.68)
== END ==
PROVIDERS: PCP Internal Medicine; Referring Provider Internal Medicine; Visit Provider Internal Medicine
DX: E03.9 Hypothyroidism, unspecified (principal); E78.2 Mixed hyperlipidemia; M81.0 Age-related osteoporosis without current pathological fracture; M06.9 Rheumatoid arthritis, unspecified
CPT/HCPCS: 36415; 80053; 80061; 82306; 84443; 85025

== ENCOUNTER → 2021-10-04 13:14 | Outpatient (CLI) | payer MEDICARE, SELFPAY ==
[2021-08-31 10:44] VITALS: BMI 22.6
[2021-10-04 16:00] LABS: Alanine Aminotransferase 12 IU/L (<35); Albumin 3.9 g/dL (3.5-5.0); Albumin Globulin Ratio 1.4 (1.0-2.8); Alkaline Phosphatase 62 U/L (38-126); Aspartate Aminotransferase 37 IU/L (14-36); BUN Creatinine Ratio 32.9 (6-22); Bilirubin Total 0.7 mg/dL (0.2-1.3); Blood Urea Nitrogen 25 mg/dL (7-17); Calcium 9.2 mg/dL (8.4-10.2); Carbon Dioxide 27 mmol/L (22-32); Chloride 104 mmol/L (98-107); Estimated Glomerular Filt Rate > 60 mL/min (>60); Globulin 2.7 g/dL (1.7-4.1); Glucose 88 mg/dL (80-110); HEMOLYSIS < 15 (0-50); Potassium 4.3 mmol/L (3.4-5.1); Sodium 138 mmol/L (137-145); Total Protein 6.6 g/dL (6.3-8.2)
== END ==
PROVIDERS: PCP Internal Medicine; Referring Provider Internal Medicine; Visit Provider Internal Medicine
DX: M81.0 Age-related osteoporosis without current pathological fracture (principal)
CPT/HCPCS: 36415; 80053

== ENCOUNTER → 2021-12-19 14:09 | Outpatient (CLI) | payer MEDICARE, SELFPAY ==
[2021-08-31 10:44] VITALS: BMI 22.6
[2021-12-19 14:51] LABS: Add Manual Diff / Slide Review NO; Basophils Absolute Auto 0 /uL (0-100); Basophils Percent Auto 0.6 % (0-2); Eosinophils Absolute Auto 100 /uL (0-450); Eosinophils Percent Auto 2.3 % (2-4); Hematocrit 36.9 % (36-46); Hemoglobin 12.8 g/dL (12.0-16.0); Lymphocytes Absolute Auto 1300 /uL (1100-4500); Lymphocytes Percent Auto 28.8 % (25-40); Mean Corpuscular HGB Conc 34.6 % (30-36); Mean Corpuscular Hemoglobin 32.8 PG (26-34); Mean Corpuscular Volume 94.7 fL (80-100); Monocytes Absolute Auto 300 /uL (0-900); Monocytes Percent Auto 6.8 % (3-14); Neutrophils Absolute Auto 2700 /uL (1500-7000); Neutrophils Percent Auto 61.5 % (50-75); Platelet Count 225 X10^3/uL (150-400); White Blood Cell Count 4.4 X10^3/uL (4.5-11.0)
[2021-12-19 15:03] LABS: Alanine Aminotransferase 10 IU/L (<35); Albumin Globulin Ratio 1.5 (1.0-2.8); Alkaline Phosphatase 58 U/L (38-126); Aspartate Aminotransferase 35 IU/L (14-36); Bilirubin Total 0.5 mg/dL (0.2-1.3); Blood Urea Nitrogen 18 mg/dL (7-17); Calcium 8.9 mg/dL (8.4-10.2); Carbon Dioxide 28 mmol/L (22-32); Chloride 104 mmol/L (98-107); Estimated Glomerular Filt Rate > 60 mL/min (>60); Globulin 2.6 g/dL (1.7-4.1); Glucose 99 mg/dL (80-110); HEMOLYSIS < 15 (0-50); Potassium 4.1 mmol/L (3.4-5.1); Sodium 136 mmol/L (137-145); Total Protein 6.6 g/dL (6.3-8.2)
== END ==
PROVIDERS: PCP Internal Medicine; Referring Provider Internal Medicine Rheumatology; Visit Provider Internal Medicine Rheumatology
DX: M06.09 Rheumatoid arthritis without rheumatoid factor, multiple sites (principal); Z79.899 Other long term (current) drug therapy; M81.0 Age-related osteoporosis without current pathological fracture
CPT/HCPCS: 36415; 80053; 85025

== ENCOUNTER → 2022-01-10 13:32 | Outpatient (CLI) | payer MEDICARE, SELFPAY ==
[2021-08-31 10:44] VITALS: BMI 22.6
[2022-01-10 15:44] LABS: Blood Urea Nitrogen 18 mg/dL (7-17); Calcium 9.2 mg/dL (8.4-10.2); Carbon Dioxide 27 mmol/L (22-32); Chloride 102 mmol/L (98-107); Estimated Glomerular Filt Rate > 60 mL/min (>60); Glucose 110 mg/dL (80-110); HEMOLYSIS < 15 (0-50); Sodium 136 mmol/L (137-145)
== END ==
PROVIDERS: PCP Internal Medicine; Referring Provider Internal Medicine Cardiovascular Disease; Visit Provider Internal Medicine Cardiovascular Disease
DX: I10 Essential (primary) hypertension (principal)
CPT/HCPCS: 36415; 80048

== ENCOUNTER → 2022-01-31 11:12 | Outpatient (CLI) | payer MEDICARE, SELFPAY ==
[2021-08-31 10:44] VITALS: BMI 22.6
--- NOTE | 2022-01-31 11:13 | DI.MG.S_ITS ---
BILATERAL DIGITAL SCREENING MAMMOGRAM 3D/2D WITH CAD: 01/31/2022 CLINICAL: Routine screening. Comparison is made to exams dated: 12/22/2020 mammogram, 11/04/2019 mammogram, and 10/12/2018 mammogram - [facility]. Both breasts are heterogeneously dense, which may obscure small masses (category c / 51-75% glandular tissue). Current study was also evaluated with a Computer Aided Detection (CAD) system. No significant masses, calcifications, or other findings are seen in either breast. There has been no significant interval change. IMPRESSION: NEGATIVE There is no mammographic evidence of malignancy. A 1 year screening mammogram is recommended. Based on the Tyrer Cuzick model (a risk assessment model) the patient's lifetime risk is 0.8% and her 10 year risk is 0.0%. According to the ACR, ACS, and NCCN guidelines, an annual breast MRI exam along with mammogram is recommended if the patient's lifetime risk is 20% or greater. This exam was interpreted at Station ID: [id number]. NOTE: For mammograms, a report in lay terms will be sent to the patient. Approximately 15% of breast malignancies will not be visualized mammographically. In the management of a palpable breast mass, a negative mammogram must not discourage biopsy of a clinically suspicious lesion. Electronically Signed By: Venita ochoa/khoi:01/31/2022 11:40:50 letter sent: Normal Exam ACR BI-RADS Category 1: Negative [id number]
== END ==
PROVIDERS: PCP Internal Medicine; Referring Provider Internal Medicine; Visit Provider Internal Medicine
DX: Z12.31 Encounter for screening mammogram for malignant neoplasm of breast (principal)
CPT/HCPCS: 77063; 77067

== ENCOUNTER → 2022-02-14 10:35 | Outpatient (CLI) | payer MEDICARE, SELFPAY ==
[2021-08-31 10:44] VITALS: BMI 22.6
--- NOTE | 2022-02-14 | DI.ECHO.S_ITS ---
[facility]---------+ [facility] +---------+ : : [address] [place] : : : : [id number] : : : : Phone: [phone] Echocardiogram Report + + :Name: GIL GARCIA Study Date: 02/14/2022 Height: 63 in : :[facility] ReadingLocation: Weight: 125 lb : : Gender: Female BSA: 1.6 m2 : :: 1940 Age: 81 yrs BP: 132/74 mmHg: :Reason For Study: TRICUSPID REGURGITATION, RIGHT HEART SIZE : :AND FUNCTION : :Ordering Physician: JUNE, : :SALVATORE Performed By: Stella Garner : :Referring: SALVATORE ROBLES : + + Interpretation Summary Limited Echo: The right ventricle is normal in size and function. There is mild to moderate tricuspid regurgitation. The right ventricular systolic pressure is estimated to be at least 30 mmHg based on an estimated right atrial pressure of 8 mm Hg. Compared to the Echo done 07/07/2021, tricuspid regurgitation has decreased from moderate-severe to mild-moderate on this study. Procedure: The study quality was technically adequate. Comparison is made with the echocardiogram of 07/07/2021. A two-dimensional transthoracic echocardiogram with color flow and Doppler was performed in limited views only to assess tricuspid regurgitation, right heart function. The patient was in atrial fibrillation with heart rates between 53-66 bpm during the exam. Left Ventricle: The left ventricle is normal in size and wall thickness. The ejection fraction is estimated to be 60-65%. Right Ventricle: The right ventricle is normal in size and function. Atria: The left atrium is moderately dilated. Right atrial size is normal. Tricuspid Valve: The tricuspid valve leaflets are thin and pliable. There is mild to moderate tricuspid regurgitation. The right ventricular systolic pressure is estimated to be at least 30 mmHg based on an estimated right atrial pressure of 8 mm Hg. Great Vessels: The IVC is dilated (diameter is greater than 2.1 cm) yet it collapses greater than 50% with a sniff. This suggests a right atrial pressure of 8 mm Hg. MMode/2D Measurements & Calculations LVIDd: 4.4 cm LA A2 area: 25.0 cm2 LVIDs: 3.1 cm LA A4 area: 18.6 cm2 FS: 29.9 % LA length (vol): 5.5 cm IVSd: 0.79 cm LA vol: 71.5 ml LVPWd: 0.80 cm LA vol index: 45.1 ml/m2 LV barone. diameter/BSA (cm/m^2): 2.8 LV sys. diameter/BSA (cm/m^2): 1.9 RA long axis: 5.5 cm RVD1 (basal): 3.8 cm RA area: 16.8 cm2 RVD2 (mid): 3.1 cm RA vol: 43.7 ml TAPSE: 2.0 cm RA : 27.6 ml/m2 IVC diam: 3.1 cm Doppler Measurements & Calculations TR max erik: 275.5 cm/sec TR max P.7 mmHg Reading Physician:06:30 PM
--- NOTE | 2022-02-14 | DI.NM.S_ITS ---
PROCEDURE: NM JAIMEE PERF SPECT R&S PHARM Rest and pharmacological stress myocardial perfusion SPECT with gated imaging and ejection fraction RADIOPHARMACEUTICAL: 12.9 mCi Tc-99m tetrafosmin IV at rest and 25.3 mCi Tc-99m tetrafosmin IV at peak effect of pharmacological stress. [id number] was performed. INDICATIONS: Dyspnea, unspecified TECHNIQUE: Radiopharmaceutical was injected at peak stress test, and also at rest. SPECT images were obtained. SPECT myocardial perfusion images were displayed in short axis, horizontal long axis, and vertical long axis views. Gated images were reviewed using [employer] software. COMPARISON: None. CARDIAC STRESS: A pharmacologic stress test was performed under the supervision of an attending staff, using an infusion of regadenoson. Hemodynamic data: There is normal blood pressure and heart rate response to pharmacologic stress. Symptoms: The patient denied anginal chest pain. EKG: No diagnostic changes of ischemia; no ectopy. FINDINGS: Raw data: There is good myocardial uptake of radiotracer. No significant motion artifacts. [id number] ratio is 0.44 (normal is less than 0.38 for tetrafosmin tracer). Left ventricle function: Gated images demonstrate normal left ventricular wall thickening. No segmental wall motion abnormalities. No transient ischemic dilation; TID is 0.92 (normal less than 1.3). Left ventricle resting end diastolic volume is 84 mL. Left ventricle stress ejection fraction is >75%; normal range is above 45%. Myocardial perfusion: There is normal distribution of activity in the right and left ventricular myocardium. No fixed or reversible perfusion defects. IMPRESSION: No evidence of pharmacologic induced ischemia or scar. Hyperdynamic left ventricular function with normal wall motion. Dictated by: Kelle Kapadia D.O. on 02/15/2022 at 16:18 Approved by: Kelle Kapadia D.O. on 02/15/2022 at 16:20
[2022-02-14 11:57] LABS: COVID19 -Nasal RAPID Negative (Negative)
== END ==
PROVIDERS: PCP Internal Medicine; Referring Provider Internal Medicine Cardiovascular Disease; Visit Provider Internal Medicine Cardiovascular Disease
DX: R06.00 Dyspnea, unspecified (principal); Z20.822 Contact with and (suspected) exposure to COVID-19
CPT/HCPCS: 78452; 87635; 93017; 93307; A9502; J2785

== ENCOUNTER → 2022-03-19 11:11 | Outpatient (CLI) | payer MEDICARE, SELFPAY ==
[2021-08-31 10:44] VITALS: BMI 22.6
== END ==
PROVIDERS: PCP Internal Medicine; Referring Provider Internal Medicine; Visit Provider Internal Medicine
DX: Z78.0 Asymptomatic menopausal state (principal); M85.851 Other specified disorders of bone density and structure, right thigh; M06.9 Rheumatoid arthritis, unspecified; Z79.83 Long term (current) use of bisphosphonates; Z79.890 Hormone replacement therapy; Z90.710 Acquired absence of both cervix and uterus
CPT/HCPCS: 77080

== ENCOUNTER → 2022-03-27 10:57 | Outpatient (CLI) | payer MEDICARE, SELFPAY ==
[2021-08-31 10:44] VITALS: BMI 22.6
[2022-03-27 11:37] LABS: Add Manual Diff / Slide Review NO; Basophils Absolute Auto 0 /uL (0-100); Basophils Percent Auto 0.4 % (0-2); Eosinophils Absolute Auto 100 /uL (0-450); Eosinophils Percent Auto 3.3 % (2-4); Hematocrit 37.9 % (36-46); Hemoglobin 13.1 g/dL (12.0-16.0); Lymphocytes Absolute Auto 1100 /uL (1100-4500); Lymphocytes Percent Auto 30.6 % (25-40); Mean Corpuscular HGB Conc 34.7 % (30-36); Mean Corpuscular Hemoglobin 33.8 PG (26-34); Mean Corpuscular Volume 97.5 fL (80-100); Monocytes Absolute Auto 300 /uL (0-900); Monocytes Percent Auto 9.6 % (3-14); Neutrophils Absolute Auto 2000 /uL (1500-7000); Neutrophils Percent Auto 56.1 % (50-75); Platelet Count 196 X10^3/uL (150-400); Red Blood Cell Count 3.88 X10^6/uL (4.0-5.2); Red Cell Distribution Width 13.9 % (11.6-14.8); White Blood Cell Count 3.5 X10^3/uL (4.5-11.0)
[2022-03-27 11:59] LABS: Alanine Aminotransferase 11 IU/L (<35); Albumin 4.1 g/dL (3.5-5.0); Albumin Globulin Ratio 1.5 (1.0-2.8); Alkaline Phosphatase 56 U/L (38-126); Aspartate Aminotransferase 31 IU/L (14-36); Bilirubin Total 0.5 mg/dL (0.2-1.3); Blood Urea Nitrogen 19 mg/dL (7-17); Calcium 9.6 mg/dL (8.4-10.2); Carbon Dioxide 31 mmol/L (22-32); Chloride 101 mmol/L (98-107); Estimated Glomerular Filt Rate > 60 mL/min (>60); Globulin 2.7 g/dL (1.7-4.1); Glucose 76 mg/dL (80-110); Potassium 4.6 mmol/L (3.4-5.1); Sodium 135 mmol/L (137-145); Total Protein 6.8 g/dL (6.3-8.2)
== END ==
PROVIDERS: PCP Internal Medicine; Referring Provider Internal Medicine Rheumatology; Visit Provider Internal Medicine Rheumatology
DX: M06.09 Rheumatoid arthritis without rheumatoid factor, multiple sites; Z79.899 Other long term (current) drug therapy; M81.0 Age-related osteoporosis without current pathological fracture
CPT/HCPCS: 36415; 80053; 85025

== ENCOUNTER → 2022-06-27 11:30 | Outpatient (CLI) | payer MEDICARE, SELFPAY ==
[2021-08-31 10:44] VITALS: BMI 22.6
[2022-06-27 12:13] LABS: Add Manual Diff / Slide Review NO; Basophils Absolute Auto 0 /uL (0-100); Basophils Percent Auto 0.4 % (0-2); Eosinophils Absolute Auto 100 /uL (0-450); Eosinophils Percent Auto 2.3 % (2-4); Hematocrit 38.5 % (36-46); Hemoglobin 12.9 g/dL (12.0-16.0); Lymphocytes Absolute Auto 1200 /uL (1100-4500); Lymphocytes Percent Auto 25.3 % (25-40); Mean Corpuscular HGB Conc 33.6 % (30-36); Mean Corpuscular Hemoglobin 33.2 PG (26-34); Monocytes Absolute Auto 300 /uL (0-900); Monocytes Percent Auto 6.7 % (3-14); Neutrophils Absolute Auto 3200 /uL (1500-7000); Neutrophils Percent Auto 65.3 % (50-75); Platelet Count 237 X10^3/uL (150-400); Red Blood Cell Count 3.89 X10^6/uL (4.0-5.2); Red Cell Distribution Width 13.9 % (11.6-14.8); White Blood Cell Count 4.9 X10^3/uL (4.5-11.0)
[2022-06-27 12:20] LABS: Alanine Aminotransferase 14 IU/L (<35); Albumin Globulin Ratio 1.3 (1.0-2.8); Alkaline Phosphatase 59 U/L (38-126); Aspartate Aminotransferase 40 IU/L (14-36); BUN Creatinine Ratio 27.5 (6-22); Bilirubin Total 0.5 mg/dL (0.2-1.3); Blood Urea Nitrogen 19 mg/dL (7-17); Calcium 9.3 mg/dL (8.4-10.2); Carbon Dioxide 31 mmol/L (22-32); Chloride 100 mmol/L (98-107); Estimated Glomerular Filt Rate > 60 mL/min (>60); Globulin 3.2 g/dL (1.7-4.1); Glucose 90 mg/dL (80-110); HEMOLYSIS < 15 (0-50); Potassium 4.3 mmol/L (3.4-5.1); Sodium 137 mmol/L (137-145); Total Protein 7.2 g/dL (6.3-8.2)
== END ==
PROVIDERS: PCP Internal Medicine; Referring Provider Internal Medicine Rheumatology; Visit Provider Internal Medicine Rheumatology
DX: Z79.899 Other long term (current) drug therapy (principal); M06.09 Rheumatoid arthritis without rheumatoid factor, multiple sites; M81.0 Age-related osteoporosis without current pathological fracture
CPT/HCPCS: 36415; 80053; 85025

== ENCOUNTER → 2022-09-05 09:21 | Outpatient (CLI) | payer MEDICARE, SELFPAY ==
[2021-08-31 10:44] VITALS: BMI 22.6
[2022-09-05 11:34] LABS: Blood Urea Nitrogen 18 mg/dL (7-17); Calcium 8.9 mg/dL (8.4-10.2); Carbon Dioxide 31 mmol/L (22-32); Chloride 98 mmol/L (98-107); Cholesterol 145 mg/dL (140-199); Estimated Glomerular Filt Rate > 60 mL/min (>60); Glucose 78 mg/dL (80-110); HDL Cholesterol 103 mg/dL (40-60); HEMOLYSIS < 15 (0-50); LDL Cholesterol Calculated 35 mg/dL (<100); Potassium 4.3 mmol/L (3.4-5.1); Sodium 134 mmol/L (137-145); Triglycerides 36 mg/dL (35-150)
[2022-09-05 12:12] LABS: TSH w/ Reflex to FT4 0.52 uIU/mL (0.47-4.68)
== END ==
PROVIDERS: PCP Internal Medicine; Referring Provider Internal Medicine; Visit Provider Internal Medicine
DX: I10 Essential (primary) hypertension (principal); E03.9 Hypothyroidism, unspecified; E78.2 Mixed hyperlipidemia
CPT/HCPCS: 36415; 80048; 80061; 84443

== ENCOUNTER → 2022-10-12 11:35 | Outpatient (CLI) | payer MEDICARE, SELFPAY ==
[2021-08-31 10:44] VITALS: BMI 22.6
[2022-10-12 12:35] LABS: COVID-19 CEPHEID 4-PLEX PCR Negative (Negative); Influenza A - CEPHEID Flu A NEGATIVE (NEGATIVE); Influenza B - CEPHEID Flu B NEGATIVE (NEGATIVE); Respiratory Syncytial Virus Negative (Negative)
== END ==
PROVIDERS: PCP Internal Medicine; Visit Provider Registered Nurse
DX: J06.9 Acute upper respiratory infection, unspecified (principal)
CPT/HCPCS: 0241U

== ENCOUNTER 2022-10-12 12:36 | Emergency (ER) | payer MEDICARE, SELFPAY ==
[2021-08-31 10:44] VITALS: BMI 22.6
[2022-10-12] VITALS (26 sets, daily range): BP systolic 92–126; BP diastolic 66–92; PULSE 70–152; RESP 15–26; TEMP 36.7; O2SAT 93–97; BMI 23.2
--- NOTE | 2022-10-12 12:52 | DI.RAD.S_ITS ---
PROCEDURE: XR CHEST 1V INDICATIONS: chest pain TECHNIQUE: One view of the chest was acquired. COMPARISON: [facility], CR, XR CHEST 1V, 07/12/2021, 17:34. FINDINGS: Surgical changes and devices: None. Lungs and pleura: Lungs are clear. No pleural effusions or pneumothorax. Mediastinum: Mediastinal contours appear normal. Heart size is normal. Bones and chest wall: No suspicious bony lesions. Overlying soft tissues appear unremarkable. IMPRESSION: No acute cardiopulmonary abnormality. Dictated by: Reyes Mckeon M.D. on 10/12/2022 at 13:56 Approved by: Reyes Mckeon M.D. on 10/12/2022 at 13:57
--- NOTE | 2022-10-12 12:58 | ED_ITS ---
HPI - Arrhythmia/Palpitations General Chief Complaint: Arrhythmia/Palpitations Stated Complaint: thinks she has Covid, afib, racing heart Time Seen by Provider: 10/12/22 12:57 Source: patient Mode of arrival: Ambulatory Limitations: no limitations History of Present Illness HPI narrative: This is a 82-year-old female with history of atrial fibrillation, hypertension, dyslipidemia, rheumatoid arthritis on Eliquis, methotrexate, diltiazem and metoprolol she takes a plan unknown and intermittently Lasix. Patient is concerned she might have a COVID infection she is been having a persistent cough which has had productive sputum but she is not sure what color she states she does not look at it. She noted this morning that her heart rate was in the 60s at 5:45 a.m. but she felt some fluttering in her chest and at 9:30 a.m. it was 116 her blood pressure systolic was around 101. She states last night she would a lot of trouble sleeping she was tossing and turning she is felt a little lightheaded today no syncope. She denies chest pain or pressure. She is had some persistent shortness of breath that is always there but is a little bit worse lately. She is not had any hemoptysis. She states any time she lays flat she wheezes. She denies any new swelling in her extremities. No nausea no vomiting. Patient states she did have an episode of diarrhea last night. No nausea or vomiting. No black or bloody stools. No urinary symptoms. She notes her sister whom she lives with tested positive for COVID on and patient states she is had some sneezing and coughing symptoms as well. She states she is been on Eliquis regularly without any missed doses for she believes at least 6 months. Patient has had a prior tooth removed she denies any other surgeries, no cardiac stents, no prior cardioversions, no pacemakers or cardiac interventions. She quit smoking in the 1970s, she has 1 alcoholic drink weekly, no illicit. No known drug allergies. Her primary care is Dr. Villalpando, she sees Dr. Robles for her accounting technician she does follow with rheumatology for her rheumatoid arthritis. Related Data Home Medications Medication Instructions Recorded Confirmed clobetasol 0.05 % topical ointment 1 g topical DAILY PRN 08/31/21 10/17/22 eplerenone 25 mg tablet 25 mg PO DAILY 09/02/22 10/17/22 furosemide 20 mg tablet 20 mg PO DAILY PRN edema 09/02/22 10/17/22 methotrexate sodium 2.5 mg tablet 10 mg PO QWEEK 09/02/22 10/17/22 Previous Rx's Medication Instructions Recorded rosuvastatin 10 mg tablet 10 mg PO DAILY #90 tabs 04/29/22 apixaban 5 mg tablet (Eliquis) 5 mg PO BID #180 tabs 05/06/22 estradiol 0.5 mg tablet 0.5 mg PO DAILY #90 tabs 06/25/22 liothyronine 5 mcg tablet 5 mcg PO DAILY #90 tabs 07/29/22 metoprolol succinate 50 mg 50 mg PO BID #180 tabs 07/30/22 tablet,extended release 24 hr tramadol 50 mg tablet 50 mg PO BID PRN pain #180 tabs 09/03/22 flecainide 50 mg tablet 50 mg PO Q12H #60 tabs 10/12/22 flecainide 100 mg tablet 100 mg PO Q12H #60 tabs 10/15/22 Allergies Allergy/AdvReac Type Severity Reaction Status Date / Time alendronate sodium AdvReac Intermediate Gastrointestinal Verified 10/17/22 09:40 Upset mirtazapine AdvReac Intermediate bad dreams Verified 10/17/22 09:40 codeine AdvReac Mild ITCHY Verified 10/17/22 09:40 sertraline AdvReac Mild fatigue Verified 10/17/22 09:40 Review of Systems Review of Systems ROS Unobtainable: All systems reviewed & are unremarkable except as noted in HPI and below Patient History Medical History Acquired hypothyroidism Advanced directives, counseling/discussion Atrial fibrillation with RVR Chronic anticoagulation Essential hypertension Generalized anxiety disorder Insomnia Medicare annual wellness visit, initial Menopausal syndrome Mixed hyperlipidemia Osteopenia Paroxysmal atrial fibrillation Rheumatoid arthritis Surgical History H/O: hysterectomy Family History Father Dementia Mother Dementia Atrial fibrillation Social History household members: family Smoking Status: Former smoker alcohol intake: current Smoking Status: Former smoker alcohol intake frequency: holidays/special occasions only Substance Use Type: does not use Exam Narrative Exam Narrative: GENERAL: Alert and oriented x three, thin elderly female in mild distress. HEENT: Head normocephalic, atraumatic, EOMI, pupils reactive, face symmetric, moist mucous membranes NECK: Supple, full range of motion CARDIOVASCULAR: Irregularly irregular and tachycardic rate and rhythm without murmurs, rubs or gallops. No JVD. No swelling bilateral lower extremities RESPIRATORY: Breath sounds equal bilaterally, no wheezes rales or rhonchi. Lungs are clear on auscultation. No tachypnea or accessory muscle use. Patient has some very mild tachypnea. ABDOMEN: Soft, nontender. Normoactive bowel sounds all 4 quadrants. No guarding or rebound, rigidity, no mass : No CVA tenderness EXTREMITIES: Normal range of motion, no clubbing or edema. Neurovascularly intact NEUROLOGICAL: Cranial nerves II through XII grossly intact. Moving all extremities SKIN: Warm, dry, no petechiae, no rashes or lesions. Initial Vital Signs Initial Vital Signs: Vital Signs Temperature 98.1 F 10/12/22 12:45 Pulse Rate 152 H 10/12/22 12:45 Respiratory Rate 22 10/12/22 12:45 Blood Pressure 122/89 10/12/22 12:45 Pulse Oximetry 94 10/12/22 12:45 Oxygen Delivery Method Room Air 10/12/22 12:45 Course Orders Ordered: Discontinued Medications Aspirin (Aspirin 81 Mg Chew Tab) 324 mg PO NOW ONE Stop: 10/12/22 12:53 Last Admin: 10/12/22 13:54 Dose: Not Given Documented By: RB Diltiazem HCl (Diltiazem 5 Mg/Ml Sdv) 10 mg IV NOW ONE Stop: 10/12/22 13:26 Last Admin: 10/12/22 13:33 Dose: 10 mg Documented By: LINO Flecainide Acetate (Flecainide 100 Mg Tablet) 150 mg PO NOW ONE Stop: 10/12/22 14:52 Last Admin: 10/12/22 15:03 Dose: 150 mg Documented By: JAVON Flecainide Acetate (Flecainide 100 Mg Tablet) 50 mg PO NOW ONE Stop: 10/12/22 17:28 Last Admin: 10/12/22 18:01 Dose: 50 mg Documented By: RB Sodium Chloride (Normal Saline 0.9%) 500 mls @ 1,000 mls/hr IV BOLUS ONE Stop: 10/12/22 13:54 Last Infusion: 10/12/22 14:16 Dose: 0 mls/hr Documented By: Admin: 10/12/22 13:40 Dose: 1,000 mls/hr Documented By: RB Sodium Chloride (Normal Saline 0.9%) 500 mls @ 1,000 mls/hr IV BOLUS ONE Stop: 10/12/22 14:39 Last Infusion: 10/12/22 14:44 Dose: 0 mls/hr Documented By: Admin: 10/12/22 14:17 Dose: 1,000 mls/hr Documented By: LINO Vital Signs Vital signs: Vital Signs - 8 hr 10/12/22 12:45 10/12/22 12:48 10/12/22 13:00 Temperature 98.1 F Pulse Rate 152 H 149 H Respiratory Rate 22 18 Blood Pressure 122/89 116/73 Pulse Oximetry 94 94 Oxygen Delivery Method Room Air 10/12/22 13:00 10/12/22 13:33 10/12/22 13:30 Temperature Pulse Rate 140 H 133 H Respiratory Rate 24 Blood Pressure 94/66 121/78 Pulse Oximetry 93 Oxygen Delivery Method 10/12/22 13:30 10/12/22 13:34 10/12/22 13:34 Temperature Pulse Rate 140 H 137 H Respiratory Rate 19 15 Blood Pressure 94/66 Pulse Oximetry 94 94 Oxygen Delivery Method 10/12/22 13:45 10/12/22 13:45 10/12/22 14:00 Temperature Pulse Rate 117 H Respiratory Rate 19 Blood Pressure 92/68 110/81 Pulse Oximetry 95 Oxygen Delivery Method 10/12/22 14:00 10/12/22 14:15 10/12/22 14:15 Temperature Pulse Rate 135 H 125 H Respiratory Rate 18 16 Blood Pressure 112/76 Pulse Oximetry 94 95 Oxygen Delivery Method 10/12/22 14:30 10/12/22 14:30 10/12/22 14:31 Temperature Pulse Rate 137 H Respiratory Rate 22 Blood Pressure 113/72 111/78 Pulse Oximetry 95 Oxygen Delivery Method 10/12/22 14:31 10/12/22 14:46 10/12/22 14:46 Temperature Pulse Rate 126 H 138 H Respiratory Rate 21 18 Blood Pressure 126/92 H Pulse Oximetry 95 96 Oxygen Delivery Method 10/12/22 14:56 10/12/22 14:56 10/12/22 15:00 Temperature Pulse Rate 143 H Respiratory Rate 19 Blood Pressure 120/91 H 113/77 Pulse Oximetry 96 Oxygen Delivery Method 10/12/22 15:00 10/12/22 15:16 10/12/22 15:16 Temperature Pulse Rate 130 H 141 H Respiratory Rate 20 21 Blood Pressure 124/88 Pulse Oximetry 97 96 Oxygen Delivery Method 10/12/22 15:30 10/12/22 15:30 10/12/22 15:45 Temperature Pulse Rate 135 H Respiratory Rate Blood Pressure 114/84 115/85 Pulse Oximetry 95 Oxygen Delivery Method 10/12/22 15:45 10/12/22 16:00 10/12/22 16:00 Temperature Pulse Rate 122 H 116 H Respiratory Rate 17 18 Blood Pressure 115/82 Pulse Oximetry 95 95 Oxygen Delivery Method 10/12/22 16:15 10/12/22 16:15 10/12/22 16:30 Temperature Pulse Rate 114 H 70 Respiratory Rate 20 21 Blood Pressure 122/85 Pulse Oximetry 95 95 Oxygen Delivery Method 10/12/22 16:31 10/12/22 16:31 Temperature Pulse Rate 70 Respiratory Rate 19 Blood Pressure 118/79 Pulse Oximetry 94 Oxygen Delivery Method MDM - Arrhythmia/Palpitations Lab Data 10/12/22 12:55 10/12/22 12:55 Labs: Lab Results 10/12/22 10/12/22 10/12/22 Range/Units 12:55 12:55 12:55 WBC 4.7 (4.5-11.0) X10^3/uL RBC 4.01 (4.0-5.2) X10^6/uL Hgb 13.5 (12.0-16.0) g/dL Hct 39.1 (36-46) % MCV 97.4 (80-100) fL MCH 33.7 (26-34) PG MCHC 34.6 (30-36) % RDW 14.2 (11.6-14.8) % Plt Count 266 (150-400) X10^3/uL Neut % (Auto) 73.1 (50-75) % Lymph % (Auto) 15.1 L (25-40) % Ponce % (Auto) 9.7 (3-14) % Eos % (Auto) 1.8 L (2-4) % Baso % (Auto) 0.3 (0-2) % Neut # (Auto) 3500 (2404-3848) /uL Lymph # (Auto) 700 L (0977-6850) /uL Ponce # (Auto) 500 (0-900) /uL Eos # (Auto) 100 (0-450) /uL Baso # (Auto) 0 (0-100) /uL PT 16.6 H (10.1-12.7) SECONDS INR 1.4 H (0.9-1.3) APTT 35 (26-36) SECONDS D-Dimer (<500) ng/ml Sodium 135 L (137-145) mmol/L Potassium 3.8 (3.4-5.1) mmol/L Chloride 101 (98-107) mmol/L Carbon Dioxide 24 (22-32) mmol/L BUN 15 (7-17) mg/dL Creatinine 0.65 (0.52-1.04) mg/dL Estimated GFR > 60 (>60) mL/min BUN/Creatinine Ratio 23.1 H (6-22) Glucose 161 H (80-110) mg/dL Calcium 9.2 (8.4-10.2) mg/dL Magnesium 1.9 (1.6-2.3) mg/dL Total Bilirubin 0.8 (0.2-1.3) mg/dL AST 40 H (14-36) IU/L ALT 15 (<35) IU/L Alkaline Phosphatase 87 (38-126) U/L Total Creatine Kinase 117 (30-135) U/L CK-MB (CK-2) 1.80 (<2.37) ng/mL CK-MB (CK-2) Rel Index 1.5 (1.5-5.0) % Troponin I < 0.012 (0.01-0.034) ng/mL NT-Pro-B Natriuret Pep (<450) pg/mL Total Protein 7.3 (6.3-8.2) g/dL Albumin 4.3 (3.5-5.0) g/dL Globulin 3.0 (1.7-4.1) g/dL Albumin/Globulin Ratio 1.4 (1.0-2.8) Lipase 153 (23-300) U/L Chlamy pneumoniae PCR (Not Detect) Adenovirus (PCR) (Not Detect) B. pertussis DNA (PCR) (Not Detecte) B.parapertussis DNA PCR (Not Detecte) Coronavirus OC43 (PCR) (Not Detect) Coronavirus HKU1 (PCR) (Not Detect) Coronavirus 229E (PCR) (Not Detect) SARS-CoV-2 (PCR) (Not Detecte) Coronavirus NL63 (PCR) (Not Detect) Human Metapneumovir PCR (Not Detect) Influenza Type A (PCR) (Not Detect) Influenza Type B (PCR) (Not Detect) M. pneumoniae (PCR) (Not Detect) Parainfluenza 1 (PCR) (Not Detect) Parainfluenza 2 (PCR) (Not Detect) Parainfluenza 3 (PCR) (Not Detect) Parainfluenza 4 (PCR) (Not Detect) RSV (PCR) (Not Detect) Entero/Rhino (PCR) (Not Detect) 10/12/22 10/12/22 10/12/22 Range/Units 12:55 12:55 12:55 WBC (4.5-11.0) X10^3/uL RBC (4.0-5.2) X10^6/uL Hgb (12.0-16.0) g/dL Hct (36-46) % MCV (80-100) fL MCH (26-34) PG MCHC (30-36) % RDW (11.6-14.8) % Plt Count (150-400) X10^3/uL Neut % (Auto) (50-75) % Lymph % (Auto) (25-40) % Ponce % (Auto) (3-14) % Eos % (Auto) (2-4) % Baso % (Auto) (0-2) % Neut # (Auto) (7873-7801) /uL Lymph # (Auto) (4303-7976) /uL Ponce # (Auto) (0-900) /uL Eos # (Auto) (0-450) /uL Baso # (Auto) (0-100) /uL PT (10.1-12.7) SECONDS INR (0.9-1.3) APTT (26-36) SECONDS D-Dimer < 215 (<500) ng/ml Sodium (137-145) mmol/L Potassium (3.4-5.1) mmol/L Chloride (98-107) mmol/L Carbon Dioxide (22-32) mmol/L BUN (7-17) mg/dL Creatinine (0.52-1.04) mg/dL Estimated GFR (>60) mL/min BUN/Creatinine Ratio (6-22) Glucose (80-110) mg/dL Calcium (8.4-10.2) mg/dL Magnesium (1.6-2.3) mg/dL Total Bilirubin (0.2-1.3) mg/dL AST (14-36) IU/L ALT (<35) IU/L Alkaline Phosphatase (38-126) U/L Total Creatine Kinase (30-135) U/L CK-MB (CK-2) (<2.37) ng/mL CK-MB (CK-2) Rel Index (1.5-5.0) % Troponin I (0.01-0.034) ng/mL NT-Pro-B Natriuret Pep 702 H (<450) pg/mL Total Protein (6.3-8.2) g/dL Albumin (3.5-5.0) g/dL Globulin (1.7-4.1) g/dL Albumin/Globulin Ratio (1.0-2.8) Lipase (23-300) U/L Chlamy pneumoniae PCR Not detected (Not Detect) Adenovirus (PCR) Not detected (Not Detect) B. pertussis DNA (PCR) Not detected (Not Detecte) B.parapertussis DNA PCR Not detected (Not Detecte) Coronavirus OC43 (PCR) Not detected (Not Detect) Coronavirus HKU1 (PCR) Not detected (Not Detect) Coronavirus 229E (PCR) Not detected (Not Detect) SARS-CoV-2 (PCR) Not detected (Not Detecte) Coronavirus NL63 (PCR) Not detected (Not Detect) Human Metapneumovir PCR Not detected (Not Detect) Influenza Type A (PCR) Not detected (Not Detect) Influenza Type B (PCR) Not detected (Not Detect) M. pneumoniae (PCR) Not detected (Not Detect) Parainfluenza 1 (PCR) Not detected (Not Detect) Parainfluenza 2 (PCR) Not detected (Not Detect) Parainfluenza 3 (PCR) Not detected (Not Detect) Parainfluenza 4 (PCR) Not detected (Not Detect) RSV (PCR) Not detected (Not Detect) Entero/Rhino (PCR) Not detected (Not Detect) Urine Dip Bedside Urine Glucose Negative Bedside Urine Bilirubin - Negative Bedside Urine Ketone - Negative Urine Specific [place] 1.010 Bedside Urine Occult Blood - Negative Bedside Urine pH 6.0 Bedside Urine Protein - Negative Bedside Urine Urobilinogen - Negative Bedside Urine Nitrite - Negative Bedside Urine Leukocytes - Negative Esterase Imaging Data Chest x-ray: Radiologist's Impresson: [address] [address] XRay Report Signed Patient: Alyson Rae MR#: [id number] : 1940 Acct:[id number] Age/Sex: 82 / F Date of Service: 10/12/22 Loc: ED Accession Number: [id number] ?? Procedure: XR chest 1V Ordering Provider: Marium Marinelli D.O. PROCEDURE:? XR CHEST 1V ? INDICATIONS:? chest pain ? TECHNIQUE:? One view of the chest was acquired.? ? COMPARISON:? [facility], CR, XR CHEST 1V, 07/12/2021, 17:34. ? FINDINGS:? ? Surgical changes and devices:? None.? ? Lungs and pleura:? Lungs are clear.? No pleural effusions or pneumothorax.? ? Mediastinum:? Mediastinal contours appear normal.? Heart size is normal.? ? Bones and chest wall:? No suspicious bony lesions.? Overlying soft tissues appear unremarkable.? ? IMPRESSION:? No acute cardiopulmonary abnormality. ? ? Dictated by: Reyes Mckeon M.D. on 10/12/2022 at 13:56 ? ? Approved by: Reyes Mckeon M.D. on 10/12/2022 at 13:57?? ECG Data Attestation: I personally reviewed and interpreted this ECG as follows: Prior ECG tracings: available for review Interpretation: Atrial fib versus atrial flutter variable block. Nonspecific ST change. Rate of 121 QRS 86 QTC of 479. No acute ST elevation appreciated. Some possible new depression 2 3 AVF but no elevation noted. EKG 2. Sinus rhythm with first-degree AV block, rate of 70 6p are 218 QRS of 86 and QTC of 452. No acute ST elevation depression noted. MDM Narrative Medical decision making narrative: This is an 82-year-old female who presents with AFib RVR with complaint tachycardia, recent upper respiratory congestion productive sputum with COVID exposure at home with her sister. Patient is tachycardic blood pressure has been 116 range, she is anticoagulated appropriately. Patient was given a small fluid bolus and 10 mg of Cardizem and re-evaluation, Patient workup includes CBC, CMP, Mag patient's troponins negative BNP is 7 O2, Mag is 1.9, K is 3.8 sodium is 135 with normal renal function. AST is 40. CBC shows normal white count, hemoglobin and platelets. INR is 1.4, D-dimer is negative. Patient has had known recent COVID exposure and respiratory panel is negative for COVID as well as other respiratory illnesses. Chest x-ray is negative with no pulmonary edema or other acute changes. Patient has not office visit from 03/15/2022 proximal atrial fibrillation heart failure with preserved ejection fraction, patient has been anticoagulated on Eliquis since then so at least 7 months, metoprolol along with diltiazem, echo from February 14, 2022 shows decreased tricuspid regurg from moderate to severe to mild moderate from prior echo, no pericardial effusion, right ventricular systolic pressure was estimated 30 mm based on estimated right atrial pressure of 8 mm. Patient's heart rate has had some improvement she dips down to the 106 range occasionally but still runs about 120-130 pretty persistently. She is little reluctant for cardioversion I think she would be a candidate we also discussed trying an additional dose of her oral medication. Discussed with Cardiology, Dr. Gonzalez covering for patient's accounting technician Dr. Robles: Reviewed patient's chart, echo, prior workups reviewed patient's way in her EKG he recommends 150 mg flecainide x1 to monitor for several hours and if patient cardioverted or is appropriately rate controlled can discharge home on flecainide 50 mg b.i.d. with 1 month's prescription and patient is to call for follow-up with the office on Friday morning. He states we could try cardioversion but as she is paroxysmal atrial fibrillation states she will likely flipped back in fairly quickly. I would recommend a new medication rather than adjusting her current. Patient received flecainide 1503, patient was noted about an hour to an hour and half after receiving to be in sinus rhythm and repeat EKG was obtained which shows sinus rhythm with first-degree AV block. Patient continued to be monitored for 3 hours. Discharge Plan Departure Patient Disposition: Home Clinical Impression: Atrial fibrillation with rapid ventricular response Instructions: DI for Atrial Fibrillation Activity Restrictions/Additional Instructions: Follow-up with your accounting technician for recheck, call to set up an appointment on Friday. Continue your current home medications as prescribed. You have been provided a new prescription, take flecainide every 12 hours or twice daily. You may take your next dose of flecainide tomorrow morning. [facility] in [place]. Please return for new or worsening chest pain, shortness of breath, lightheadedness or passing out, fevers, new swelling in your extremities, persistent vomiting or other new or concerning changes. Prescriptions: New flecainide 50 mg tablet 50 mg PO Q12H Qty: 60 0RF No Action rosuvastatin 10 mg tablet 10 mg PO DAILY Qty: 90 3RF Eliquis 5 mg tablet 5 mg PO BID Qty: 180 3RF estradiol 0.5 mg tablet 0.5 mg PO DAILY Qty: 90 3RF Rx Instructions: off 5 days; repeat cycle liothyronine 5 mcg tablet 5 mcg PO DAILY Qty: 90 3RF metoprolol succinate 50 mg tablet extended release 24 hr 50 mg PO BID Qty: 180 3RF tramadol 50 mg tablet 50 mg PO BID PRN (Reason: pain) Qty: 180 1RF clobetasol 0.05 % ointment 1 g topical DAILY PRN eplerenone 25 mg tablet 25 mg PO DAILY furosemide 20 mg tablet 20 mg PO DAILY PRN (Reason: edema) methotrexate sodium 2.5 mg tablet 10 mg PO QWEEK Patient Comments: 4 tables weekly flecainide 100 mg tablet 100 mg PO Q12H Qty: 60 0RF Referrals: Juarez Villalpando MD [Primary Care Provider] - Stand Alone Forms: Patient Portal/API
[2022-10-12 13:09] LABS: Add Manual Diff / Slide Review NO; Basophils Absolute Auto 0 /uL (0-100); Basophils Percent Auto 0.3 % (0-2); Eosinophils Absolute Auto 100 /uL (0-450); Eosinophils Percent Auto 1.8 % (2-4); Hematocrit 39.1 % (36-46); Hemoglobin 13.5 g/dL (12.0-16.0); Lymphocytes Absolute Auto 700 /uL (1100-4500); Lymphocytes Percent Auto 15.1 % (25-40); Mean Corpuscular HGB Conc 34.6 % (30-36); Mean Corpuscular Hemoglobin 33.7 PG (26-34); Mean Corpuscular Volume 97.4 fL (80-100); Monocytes Absolute Auto 500 /uL (0-900); Monocytes Percent Auto 9.7 % (3-14); Neutrophils Absolute Auto 3500 /uL (1500-7000); Neutrophils Percent Auto 73.1 % (50-75); Platelet Count 266 X10^3/uL (150-400); Red Blood Cell Count 4.01 X10^6/uL (4.0-5.2); Red Cell Distribution Width 14.2 % (11.6-14.8); White Blood Cell Count 4.7 X10^3/uL (4.5-11.0)
[2022-10-12 13:16] LABS: INR 1.4 (0.9-1.3); Prothrombin Time 16.6 SECONDS (10.1-12.7)
[2022-10-12 13:18] LABS: PTT Partial Thromboplastin Tim 35 SECONDS (26-36)
[2022-10-12 13:26] LABS: Alanine Aminotransferase 15 IU/L (<35); Albumin 4.3 g/dL (3.5-5.0); Albumin Globulin Ratio 1.4 (1.0-2.8); Alkaline Phosphatase 87 U/L (38-126); Aspartate Aminotransferase 40 IU/L (14-36); BUN Creatinine Ratio 23.1 (6-22); Bilirubin Total 0.8 mg/dL (0.2-1.3); Blood Urea Nitrogen 15 mg/dL (7-17); Calcium 9.2 mg/dL (8.4-10.2); Carbon Dioxide 24 mmol/L (22-32); Chloride 101 mmol/L (98-107); Creatine Kinase 117 U/L (30-135); Estimated Glomerular Filt Rate > 60 mL/min (>60); Glucose 161 mg/dL (80-110); HEMOLYSIS < 15 (0-50); Lipase 153 U/L (23-300); Magnesium 1.9 mg/dL (1.6-2.3); Potassium 3.8 mmol/L (3.4-5.1); Sodium 135 mmol/L (137-145); Total Protein 7.3 g/dL (6.3-8.2)
[2022-10-12 13:33] LABS: NT-proBNP (BNP-Adult 18+) 702 pg/mL (<450)
[2022-10-12] MEDS: dilTIAZem 5 MG/ML SDV 10 MG IV (13:33)
[2022-10-12 13:36] LABS: Troponin I < 0.012 ng/mL (0.01-0.034)
[2022-10-12 13:40] LABS: CKMB % Relative Index 1.5 % (1.5-5.0)
[2022-10-12] MEDS: SODIUM CHLORIDE 0.9% 500 ML 1000 ML IV ×2 (13:40→14:17)
[2022-10-12 13:49] LABS: D Dimer < 215 ng/ml (<500)
[2022-10-12 13:56] LABS: Adenovirus Not Detected (Not Detect)
[2022-10-12 13:57] LABS: B. parapertussis Not Detected (Not Detecte); Bordetella pertussis Not Detected (Not Detecte); Chlamydophila pneumoniae Not Detected (Not Detect); Coronavirus 229E Not Detected (Not Detect); Coronavirus HKU1 Not Detected (Not Detect); Coronavirus NL 63 Not Detected (Not Detect); Coronavirus OC43 Not Detected (Not Detect); Human Metapneumovirus Not Detected (Not Detect); Human Rhinovirus/Enterovirus Not Detected (Not Detect); Influenza A Not Detected (Not Detect); Influenza B Not Detected (Not Detect); Mycoplasma pneumoniae Not Detected (Not Detect); Parainfluenza Virus 1 Not Detected (Not Detect); Parainfluenza Virus 2 Not Detected (Not Detect); Parainfluenza Virus 3 Not Detected (Not Detect); Parainfluenza Virus 4 Not Detected (Not Detect); Respiratory Syncytial Virus Not Detected (Not Detect); SARS- CoV-2 Not Detected (Not Detecte)
[2022-10-12] MEDS: FLECAINIDE 100 MG TABLET 150 MG PO (15:03)
[2022-10-12] MEDS: FLECAINIDE 100 MG TABLET 50 MG PO (18:01)
== END 2022-10-12 18:15 | disposition home or self-care (01) ==
PROVIDERS: Emergency Provider Emergency Medicine; PCP Internal Medicine
DX: I48.20 Chronic atrial fibrillation, unspecified (principal); Z79.01 Long term (current) use of anticoagulants; R07.9 Chest pain, unspecified; Z79.899 Other long term (current) drug therapy; Z20.822 Contact with and (suspected) exposure to COVID-19; J06.9 Acute upper respiratory infection, unspecified
CPT/HCPCS: 0241U; 36415; 71045; 80053; 81003; 82550; 82553; 83690; 83735; 83880; 84484; 85025; 85379; 85610; 85730; 87633; 93005; 96361; 96374; 99284

== ENCOUNTER 2022-10-15 08:28 | Emergency (ER) | payer MEDICARE, SELFPAY ==
[2021-08-31 10:44] VITALS: BMI 22.6
[2022-10-15] VITALS (50 sets, daily range): BP systolic 104–138; BP diastolic 65–91; PULSE 104–135; RESP 13–30; TEMP 37; O2SAT 92–98; BMI 23.0
--- NOTE | 2022-10-15 09:01 | ED_ITS ---
HPI - General Adult General Chief complaint: Arrhythmia/Palpitations Stated complaint: here sat; afib Time Seen by Provider: 10/15/22 08:28 Source: patient Mode of arrival: Ambulatory Limitations: no limitations History of Present Illness HPI narrative: Patient is an 82-year-old female. Was seen here in the emergency department 2 days ago for atrial fibrillation. Patient did convert after starting on flecainide after discussions with cardiology. She was observed here in the emergency department for an extended period of time. She stated that she is felt very well afterwards. Has been taking all of her medications as directed to include her anticoagulation. She states that last evening she started to f eel like her heart was beating fast and skipping beats. She is not having any chest pain or shortness of breath or lightheadedness. She comes in the emergency department today stating that she is now interested in a cardioversion. He is not taken her morning medicines this morning as they are not due until 930. She is up-to-date on all of her other medicines to include her anticoagulation. Related Data Home Medications Medication Instructions Recorded Confirmed clobetasol 0.05 % topical ointment 1 g topical DAILY PRN 08/31/21 09/02/22 eplerenone 25 mg tablet 25 mg PO DAILY 09/02/22 09/02/22 furosemide 20 mg tablet 20 mg PO DAILY PRN edema 09/02/22 09/02/22 methotrexate sodium 2.5 mg tablet 10 mg PO QWEEK 09/02/22 09/02/22 Previous Rx's Medication Instructions Recorded rosuvastatin 10 mg tablet 10 mg PO DAILY #90 tabs 04/29/22 apixaban 5 mg tablet (Eliquis) 5 mg PO BID #180 tabs 05/06/22 estradiol 0.5 mg tablet 0.5 mg PO DAILY #90 tabs 06/25/22 liothyronine 5 mcg tablet 5 mcg PO DAILY #90 tabs 07/29/22 metoprolol succinate 50 mg 50 mg PO BID #180 tabs 07/30/22 tablet,extended release 24 hr diltiazem HCl 240 mg 240 mg PO DAILY #90 caps 08/30/22 capsule,extended release 24 hr (Cardizem CD) sertraline 50 mg tablet 50 mg PO DAILY #90 tabs 09/02/22 tramadol 50 mg tablet 50 mg PO BID PRN pain #180 tabs 09/03/22 flecainide 50 mg tablet 50 mg PO Q12H #60 tabs 10/12/22 flecainide 100 mg tablet 100 mg PO Q12H #60 tabs 10/15/22 Allergies Allergy/AdvReac Type Severity Reaction Status Date / Time alendronate sodium AdvReac Intermediate Gastrointestinal Verified 09/02/22 11:18 Upset mirtazapine AdvReac Intermediate bad dreams Verified 09/02/22 11:54 codeine AdvReac Mild ITCHY Verified 09/02/22 11:18 Review of Systems Constitutional Constitutional: Reports system reviewed and no additional complaints, except as documented Cardiovascular Cardiovascular: Reports system reviewed and no additional complaints, except as documented Respiratory Respiratory: Reports system reviewed and no additional complaints, except as do cumented Gastrointestinal Gastrointestinal: Reports system reviewed and no additional complaints, except as documented Musculoskeletal Musculoskeletal: Reports system reviewed and no additional complaints, except as documented Integumentary/Breasts Skin/Breast: Reports system reviewed and no additional complaints, except as documented Hematologic/Lymphatic On Anticoagulants: Yes Patient History Medical History Acquired hypothyroidism Advanced directives, counseling/discussion Atrial fibrillation with RVR Chronic anticoagulation Essential hypertension Generalized anxiety disorder Insomnia Medicare annual wellness visit, initial Menopausal syndrome Mixed hyperlipidemia Osteopenia Paroxysmal atrial fibrillation Rheumatoid arthritis Surgical History H/O: hysterectomy Family History Father Dementia Mother Dementia Atrial fibrillation Social History household members: family Smoking Status: Former smoker alcohol intake: current Smoking Status: Former smoker alcohol intake frequency: holidays/special occasions only Substance Use Type: does not use Exam Initial Vital Signs Initial Vital Signs: Vital Signs Temperature 98.6 F 10/15/22 08:43 Pulse Rate 116 H 10/15/22 08:43 Respiratory Rate 16 10/15/22 08:43 Blood Pressure 138/82 10/15/22 08:43 Pulse Oximetry 94 10/15/22 08:43 Oxygen Delivery Method Room Air 10/15/22 08:43 Const General: cooperative, comfortable and No ill appearing HENMT Head: normal to inspection and normocephalic Resp Effort & Inspection: normal respiratory effort Auscultation: clear to auscultation bilaterally Cardio Rate: tachycardic Rhythm: abnormal rhythm GI Inspection: normal to inspection Skin General: no rashes or lesions noted Neuro General: patient alert, patient awake and moves all extremities Speech: speech normal Extrem General: normal to inspection and capillary refill normal Procedures Cardioversion Consent Signed: Yes Indication: Atrial flutter Stability: Stable Number of attempts (shocks): 3 Joules used: 120, 150 and 200 Cardiac rhythm post-cardioversion: Atrial flutter Procedural Sedation Consent signed: Yes Time out performed: Yes Indication: cardioversion ASA Class: II Mallampati Airway Classification: Class II Preparation: cafeteria monitor applied, pulse oximeter, capnometry used, supplemental O2 applied, suction/airway equipment at bedside and IV secured Fentanyl: IV Fentanyl dose (mcg): 12 IV Propofol dose (mg): 40 Intraservice time/total sedation time (min): 15 ED Sedation Level: Moderate (Concious) Patient Tolerated Procedure: Well Complications: none Course Orders Ordered: ED Orders 10/15/22 08:35 Basic Metabolic Panel Stat Complete Blood Count AUTO DIFF Stat Magnesium Stat 10/15/22 08:45 EKG-12 Lead Stat Discontinued Medications Fentanyl (Fentanyl 100 Mcg/2 Ml Inj) 12.5 mcg IV NOW ONE Stop: 10/15/22 09:02 Last Admin: 10/15/22 09:34 Dose: 12.5 mcg Documented By: JUNIOR Flecainide Acetate (Flecainide 100 Mg Tablet) 100 mg PO NOW ONE Stop: 10/15/22 11:39 Last Admin: 10/15/22 12:03 Dose: 100 mg Documented By: JUNIOR Sodium Chloride (Normal Saline 0.9%) 1,000 mls @ 125 mls/hr IV CONT CLARE Last Infusion: 10/15/22 09:53 Dose: 0 mls/hr Documented By: Infusion: 10/15/22 09:18 Dose: 999 mls/hr Documented By: Admin: 10/15/22 09:17 Dose: 125 mls/hr Documented By: JUNIOR Propofol (Propofol 200 Mg/20 Ml Vial) 100 mg IV NOW ONE Stop: 10/15/22 09:02 Last Admin: 10/15/22 09:37 Dose: 40 mg Documented By: CTS Vital Signs Vital signs: Vital Signs - 8 hr 10/15/22 08:43 10/15/22 09:40 10/15/22 09:45 Temperature 98.6 F Pulse Rate 116 H 125 H 112 H Respiratory Rate 16 13 13 Blood Pressure 138/82 116/69 104/70 Pulse Oximetry 94 96 97 Oxygen Delivery Method Room Air 10/15/22 09:50 10/15/22 09:55 10/15/22 10:00 Temperature Pulse Rate 127 H 126 H 131 H Respiratory Rate 19 16 21 Blood Pressure 128/77 112/65 121/73 Pulse Oximetry 94 93 92 Oxygen Delivery Method 10/15/22 10:05 10/15/22 10:05 10/15/22 08:48 Temperature Pulse Rate 128 H 115 H 117 H Respiratory Rate 15 18 18 Blood Pressure 117/78 Pulse Oximetry 94 95 Oxygen Delivery Method 10/15/22 08:50 10/15/22 08:52 10/15/22 08:54 Temperature Pulse Rate 117 H 117 H 117 H Respiratory Rate 20 19 17 Blood Pressure Pulse Oximetry 94 94 95 Oxygen Delivery Method 10/15/22 08:56 10/15/22 08:58 10/15/22 09:00 Temperature Pulse Rate 117 H 117 H Respiratory Rate 22 21 Blood Pressure 135/84 Pulse Oximetry 95 95 Oxygen Delivery Method 10/15/22 09:00 10/15/22 09:02 10/15/22 09:04 Temperature Pulse Rate 117 H 117 H 118 H Respiratory Rate 22 18 18 Blood Pressure Pulse Oximetry 95 95 94 Oxygen Delivery Method 10/15/22 09:06 10/15/22 09:08 10/15/22 09:10 Temperature Pulse Rate 118 H 118 H 115 H Respiratory Rate 19 27 H 26 H Blood Pressure Pulse Oximetry 94 94 Oxygen Delivery Method 10/15/22 09:12 10/15/22 09:14 10/15/22 09:16 Temperature Pulse Rate 115 H 117 H 117 H Respiratory Rate 23 22 18 Blood Pressure Pulse Oximetry 94 94 94 Oxygen Delivery Method 10/15/22 09:18 10/15/22 09:20 10/15/22 09:22 Temperature Pulse Rate 117 H 117 H 117 H Respiratory Rate 19 22 15 Blood Pressure Pulse Oximetry 94 94 94 Oxygen Delivery Method 10/15/22 09:24 10/15/22 09:26 10/15/22 09:28 Temperature Pulse Rate 135 H 124 H 128 H Respiratory Rate 17 14 16 Blood Pressure Pulse Oximetry 95 95 95 Oxygen Delivery Method 10/15/22 09:30 10/15/22 09:30 10/15/22 09:32 Temperature Pulse Rate 127 H 127 H Respiratory Rate 15 17 Blood Pressure 123/74 Pulse Oximetry 95 95 Oxygen Delivery Method 10/15/22 09:34 10/15/22 09:36 10/15/22 09:38 Temperature Pulse Rate 128 H 127 H 127 H Respiratory Rate 18 19 16 Blood Pressure Pulse Oximetry 95 95 96 Oxygen Delivery Method 10/15/22 09:40 10/15/22 09:42 10/15/22 09:43 Temperature Pulse Rate 120 H 115 H Respiratory Rate 18 18 Blood Pressure 116/69 Pulse Oximetry 94 94 Oxygen Delivery Method 10/15/22 09:43 10/15/22 09:44 10/15/22 09:45 Temperature Pulse Rate 127 H 122 H Respiratory Rate 13 22 Blood Pressure 104/70 Pulse Oximetry 96 96 Oxygen Delivery Method 10/15/22 09:45 10/15/22 09:46 10/15/22 09:48 Temperature Pulse Rate 114 H 126 H 127 H Respiratory Rate 15 16 23 Blood Pressure Pulse Oximetry 97 97 97 Oxygen Delivery Method 10/15/22 09:50 10/15/22 09:50 10/15/22 09:52 Temperature Pulse Rate 128 H 125 H Respiratory Rate 17 15 Blood Pressure 128/77 Pulse Oximetry 94 93 Oxygen Delivery Method 10/15/22 09:54 10/15/22 09:55 10/15/22 09:55 Temperature Pulse Rate 120 H 128 H Respiratory Rate 18 16 Blood Pressure 112/65 Pulse Oximetry 94 93 Oxygen Delivery Method 10/15/22 09:56 10/15/22 09:58 10/15/22 10:00 Temperature Pulse Rate 124 H 129 H Respiratory Rate 20 16 Blood Pressure 121/73 Pulse Oximetry 93 94 Oxygen Delivery Method 10/15/22 10:00 10/15/22 10:02 10/15/22 10:04 Temperature Pulse Rate 128 H 127 H 131 H Respiratory Rate 22 21 15 Blood Pressure Pulse Oximetry 94 93 93 Oxygen Delivery Method 10/15/22 10:05 10/15/22 10:05 10/15/22 10:30 Temperature Pulse Rate 132 H Respiratory Rate 13 Blood Pressure 117/78 124/78 Pulse Oximetry 94 Oxygen Delivery Method 10/15/22 10:30 10/15/22 11:00 10/15/22 11:00 Temperature Pulse Rate 130 H 135 H Respiratory Rate 16 23 Blood Pressure 129/84 Pulse Oximetry 95 Oxygen Delivery Method 10/15/22 11:16 10/15/22 11:16 10/15/22 11:30 Temperature Pulse Rate 112 H Respiratory Rate 19 Blood Pressure 131/90 125/91 H Pulse Oximetry 93 Oxygen Delivery Method 10/15/22 11:30 10/15/22 12:00 10/15/22 12:00 Temperature Pulse Rate 111 H 111 H Respiratory Rate 30 H 20 Blood Pressure 133/85 Pulse Oximetry 96 95 Oxygen Delivery Method 10/15/22 12:30 10/15/22 12:30 Temperature Pulse Rate 104 H Respiratory Rate 19 Blood Pressure 129/79 Pulse Oximetry 94 Oxygen Delivery Method Medical Decision Making Lab Data Lab results reviewed: Yes I reviewed the patient's lab results. 10/15/22 08:35 10/15/22 08:35 Labs: Lab Results 10/15/22 10/15/22 10/15/22 Range/Units 08:35 08:35 08:35 WBC 6.2 (4.5-11.0) X10^3/uL RBC 3.94 L (4.0-5.2) X10^6/uL Hgb 13.5 (12.0-16.0) g/dL Hct 38.7 (36-46) % MCV 98.2 (80-100) fL MCH 34.2 H (26-34) PG MCHC 34.9 (30-36) % RDW 13.9 (11.6-14.8) % Plt Count 300 (150-400) X10^3/uL Neut % (Auto) 65.7 (50-75) % Lymph % (Auto) 16.9 L (25-40) % [place] % (Auto) 13.2 (3-14) % Eos % (Auto) 3.8 (2-4) % Baso % (Auto) 0.4 (0-2) % Neut # (Auto) 4100 (4224-0972) /uL Lymph # (Auto) 1100 (4407-6492) /uL [place] # (Auto) 800 (0-900) /uL Eos # (Auto) 200 (0-450) /uL Baso # (Auto) 0 (0-100) /uL Sodium 136 L (137-145) mmol/L Potassium 3.9 (3.4-5.1) mmol/L Chloride 103 (98-107) mmol/L Carbon Dioxide 25 (22-32) mmol/L BUN 15 (7-17) mg/dL Creatinine 0.67 (0.52-1.04) mg/dL Estimated GFR > 60 (>60) mL/min BUN/Creatinine Ratio 22.4 H (6-22) Glucose 108 (80-110) mg/dL Calcium 9.2 (8.4-10.2) mg/dL Magnesium 2.3 (1.6-2.3) mg/dL Point of Care Testing Test Results Not applicable Point of care testing: Point of Care Testing Test Results Not applicable ECG Data Attestation: I personally reviewed and interpreted this ECG as follows: Interpretation: Atrial flutter Ventricular rate of 116 Normal axis Normal QRS Nonspecific ST T wave changes MDM Narrative Medical decision making narrative: After consent was signed and attempted cardioversion was unsuccessful. Patient is clearly in atrial flutter. It was time for her to take her morning medications which she took after she recovered from the sedation. Her heart rate did improve somewhat but she was still in a flutter. I did discuss the case with Dr. Vaughn on-call for cardiology who stated that flecainide actually can cause atrial flutter. He recommended that I talk with Dr. Duong who is the therapist occupational. I did talk with Dr. duong who stated that yes it is possible that flecainide converted her from atrial fibrillation but made it more organized that atrial flutter. He recommended increasing her flecainide from 50 mg twice a day to 100 mg twice a day. He also recommended that she stop her Cardizem and keep her metoprolol steady. He was concerned that potentially all 3 these medications would be too much that she could become bradycardic. I did discuss this with the patient. She was given an additional 100 mg of flecainide here in the ER. This improved her heart rate to between 100-105. Patient was not hypotensive. I did discuss all these changes with the patient. Will discharge patient home. Will have her contact her plastic cablemaking machine operator for follow-up. Patient was in agreement with this she did not want to stay in the emergency department longer as she had other commitments at home taking care of another individual. She was given strict return precautions. She expressed understanding and agreement. Discharge Plan Departure Patient Disposition: Home Clinical Impression: Atrial flutter Instructions: DI for Atrial Flutter Activity Restrictions/Additional Instructions: The Cardiology group recommend that you continue all of your medications as directed except 1) continue your metoprolol 50 mg twice a day 2) stop taking your diltiazem 3) increase the flecainide from 50 mg twice a day to 100 mg twice a day. I recommend you contact your plastic cablemaking machine operator's office for follow-up. Return to the emergency department for new or worsening symptoms. Prescriptions: New flecainide 100 mg tablet 100 mg PO Q12H Qty: 60 0RF No Action rosuvastatin 10 mg tablet 10 mg PO DAILY Qty: 90 3RF Eliquis 5 mg tablet 5 mg PO BID Qty: 180 3RF estradiol 0.5 mg tablet 0.5 mg PO DAILY Qty: 90 3RF Rx Instructions: off 5 days; repeat cycle liothyronine 5 mcg tablet 5 mcg PO DAILY Qty: 90 3RF metoprolol succinate 50 mg tablet extended release 24 hr 50 mg PO BID Qty: 180 3RF diltiazem HCl [Cardizem CD] 240 mg capsule,extended release 24hr 240 mg PO DAILY Qty: 90 3RF tramadol 50 mg tablet 50 mg PO BID PRN (Reason: pain) Qty: 180 1RF clobetasol 0.05 % ointment 1 g topical DAILY PRN eplerenone 25 mg tablet 25 mg PO DAILY furosemide 20 mg tablet 20 mg PO DAILY PRN (Reason: edema) sertraline 50 mg tablet 50 mg PO DAILY Qty: 90 3RF flecainide 50 mg tablet 50 mg PO Q12H Qty: 60 0RF methotrexate sodium 2.5 mg tablet 10 mg PO QWEEK Patient Comments: 4 tables weekly Referrals: Juarez Villalpando MD [Primary Care Provider] - Stand Alone Forms: Patient Portal/API
[2022-10-15 09:11] LABS: Add Manual Diff / Slide Review NO; Basophils Absolute Auto 0 /uL (0-100); Basophils Percent Auto 0.4 % (0-2); Eosinophils Absolute Auto 200 /uL (0-450); Eosinophils Percent Auto 3.8 % (2-4); Hematocrit 38.7 % (36-46); Hemoglobin 13.5 g/dL (12.0-16.0); Lymphocytes Absolute Auto 1100 /uL (1100-4500); Lymphocytes Percent Auto 16.9 % (25-40); Mean Corpuscular HGB Conc 34.9 % (30-36); Mean Corpuscular Hemoglobin 34.2 PG (26-34); Mean Corpuscular Volume 98.2 fL (80-100); Monocytes Absolute Auto 800 /uL (0-900); Monocytes Percent Auto 13.2 % (3-14); Neutrophils Absolute Auto 4100 /uL (1500-7000); Neutrophils Percent Auto 65.7 % (50-75); Platelet Count 300 X10^3/uL (150-400); Red Blood Cell Count 3.94 X10^6/uL (4.0-5.2); Red Cell Distribution Width 13.9 % (11.6-14.8); White Blood Cell Count 6.2 X10^3/uL (4.5-11.0)
[2022-10-15] MEDS: SODIUM CHLORIDE 0.9% 1,000 ML 125 ML IV (09:17)
[2022-10-15 09:18] LABS: BUN Creatinine Ratio 22.4 (6-22); Blood Urea Nitrogen 15 mg/dL (7-17); Calcium 9.2 mg/dL (8.4-10.2); Carbon Dioxide 25 mmol/L (22-32); Chloride 103 mmol/L (98-107); Estimated Glomerular Filt Rate > 60 mL/min (>60); Glucose 108 mg/dL (80-110); HEMOLYSIS < 15 (0-50); Potassium 3.9 mmol/L (3.4-5.1); Sodium 136 mmol/L (137-145)
[2022-10-15 09:20] LABS: Magnesium 2.3 mg/dL (1.6-2.3)
[2022-10-15] MEDS: fentaNYL 100 MCG/2 ML INJ 12.5 MCG IV (09:34)
[2022-10-15] MEDS: propofoL 200 MG/20 ML VIAL 100 MG IV (09:37)
--- NOTE | 2022-10-15 10:36 | PC.NURSE ---
pt instructed by Dr Gonzalez to take her AM eliquis, diltiazem, metoprolol and flecanide. tolerated well. continues with Afib at 134 after unsuccessful cardioversion. Pt AAOx3 at this time.
[2022-10-15] MEDS: FLECAINIDE 100 MG TABLET PO (12:03)
== END 2022-10-15 12:57 | disposition home or self-care (01) ==
PROVIDERS: Emergency Provider Emergency Medicine; PCP Internal Medicine
DX: I48.92 Unspecified atrial flutter (principal); Z79.01 Long term (current) use of anticoagulants
CPT/HCPCS: 36415; 80048; 83735; 85025; 92960; 93005; 96360; 99152; 99285; J2704; J3010

== ENCOUNTER 2022-10-19 09:06 | Emergency (ER) | payer MEDICARE, SELFPAY ==
[2021-08-31 10:44] VITALS: BMI 22.6
[2022-10-19] VITALS (10 sets, daily range): BP systolic 126–151; BP diastolic 78–84; PULSE 58–73; RESP 18–22; TEMP 36.6; O2SAT 95–97; BMI 23.0
--- NOTE | 2022-10-19 09:11 | ED_ITS ---
HPI - General Adult General Chief complaint: Arrhythmia/Palpitations Stated complaint: AFib Time Seen by Provider: 10/19/22 09:11 History of Present Illness HPI narrative: 82-year-old female former smoker with history of atrial fibrillation on eliquis, hypertension, dyslipidemia, rheumatoid arthritis on Eliquis, methotrexate, diltiazem and metoprolol? with recent dose increase of Flecainide presents with a concern that she is back in atrial fibrillation. She is been seen a few times lately and initially had a conversion with flecainide and on subsequent visi required electrocardioversion. Patient states that she started feeling fluttery, dizzy, weak and lightheaded last night and this morning upon taking her vital signs found her heart rate to be in the 120s and irregular. She had not yet taken her morning medications and presented with a concern that she is in atrial fibrillation. By the time she was in the room she is asymptomatic and denies dizziness, weakness or lightheadedness. She has no chest pain or shortness of breath. She denies nausea, vomiting or diarrhea. Related Data Home Medications Medication Instructions Recorded Confirmed clobetasol 0.05 % topical ointment 1 g topical DAILY PRN 08/31/21 10/17/22 eplerenone 25 mg tablet 25 mg PO DAILY 09/02/22 10/17/22 furosemide 20 mg tablet 20 mg PO DAILY PRN edema 09/02/22 10/17/22 methotrexate sodium 2.5 mg tablet 10 mg PO QWEEK 09/02/22 10/17/22 Previous Rx's Medication Instructions Recorded rosuvastatin 10 mg tablet 10 mg PO DAILY #90 tabs 04/29/22 apixaban 5 mg tablet (Eliquis) 5 mg PO BID #180 tabs 05/06/22 estradiol 0.5 mg tablet 0.5 mg PO DAILY #90 tabs 06/25/22 liothyronine 5 mcg tablet 5 mcg PO DAILY #90 tabs 07/29/22 metoprolol succinate 50 mg 50 mg PO BID #180 tabs 07/30/22 tablet,extended release 24 hr tramadol 50 mg tablet 50 mg PO BID PRN pain #180 tabs 09/03/22 flecainide 50 mg tablet 50 mg PO Q12H #60 tabs 10/12/22 flecainide 100 mg tablet 100 mg PO Q12H #60 tabs 10/15/22 Allergies Allergy/AdvReac Type Severity Reaction Status Date / Time alendronate sodium AdvReac Intermediate Gastrointestinal Verified 10/17/22 09:40 Upset mirtazapine AdvReac Intermediate bad dreams Verified 10/17/22 09:40 codeine AdvReac Mild ITCHY Verified 10/17/22 09:40 sertraline AdvReac Mild fatigue Verified 10/17/22 09:40 Review of Systems Review of Systems Narrative: GENERAL: Denies chills, fatigue, malaise, fever, sweats. HEENT: Denies sinus pain, ear pain, sore throat, difficulty swallowing, dizziness. RESPIRATORY: see HPI. CARDIOVASCULAR: see HPI GASTROINTESTINAL: Denies nausea, vomiting, abdominal pain, diarrhea, constipation, melena. : Denies dysuria, frequency, incontinence, hematuria, urinary retention. MUSCULOSKELETAL: denies weakness, joint pain, or bony pain SKIN: Denies rash, skin lesions, or other NEUROLOGIC: Denies weakness, headache, numbness, change in speech, confusion, seizures, incoordination. PSYCHIATRIC: No concerning psychosocial issues. 12 point review of systems is negative except for those stated above Patient History Medical History Acquired hypothyroidism Advanced directives, counseling/discussion Atrial fibrillation with RVR Chronic anticoagulation Essential hypertension Generalized anxiety disorder Insomnia Medicare annual wellness visit, initial Menopausal syndrome Mixed hyperlipidemia Osteopenia Paroxysmal atrial fibrillation Rheumatoid arthritis Surgical History H/O: hysterectomy Family History Father Dementia Mother Dementia Atrial fibrillation Social History household members: family Smoking Status: Former smoker alcohol intake: current Smoking Status: Former smoker alcohol intake frequency: holidays/special occasions only Substance Use Type: does not use Exam Narrative Exam Narrative: GENERAL: [82] year old patient appears stated age. Well-developed patient, in mild distress. HEAD: Atraumatic. Normocephalic. EYES: Pupils equal round and reactive. Extraocular motions intact. No scleral icterus. No injection or drainage. ENT: Nose without bleeding, purulent drainage. Throat without erythema, tonsillar hypertrophy or exudate. Airway patent. NECK: Trachea midline. Non tender CARDIOVASCULAR: Regular rate and rhythm without murmurs, gallops, or rubs. RESPIRATORY: no significant work of breathing, minor expiratory wheeze in all bustos, no rales or rhonchi GASTROINTESTINAL: Abdomen soft, non-tender, nondistended. EXTREMITIES: No edema or joint tenderness. BACK: Nontender without deformity or crepitance. No flank tenderness. NEURO: AOx3. SKIN: No rash or erythema of visible areas Initial Vital Signs Initial Vital Signs: Vital Signs Temperature 97.9 F 10/19/22 09:18 Pulse Rate 65 10/19/22 09:18 Respiratory Rate 20 10/19/22 09:18 Blood Pressure 128/78 10/19/22 09:18 Pulse Oximetry 97 10/19/22 09:18 Oxygen Delivery Method Room Air 10/19/22 09:18 Course Orders Ordered: ED Orders 10/19/22 09:12 XR chest 1V Stat EKG-12 Lead Stat 10/19/22 09:30 Complete Blood Count AUTO DIFF Stat Comprehensive Metabolic Panel Stat Lipase Stat Magnesium Stat NT-proBNP (BNP-Adult 18+) Stat Prothrombin Time INR Stat Troponin & CK Cardiac Panel Stat 10/19/22 10:50 EKG-12 Lead Stat Sodium Chloride (Normal Saline 0.9%) 1,000 mls @ 150 mls/hr IV CONT CLARE Last Admin: 10/19/22 10:28 Dose: 150 mls/hr Documented By: LINO Vital Signs Vital signs: Vital Signs - 8 hr 10/19/22 09:18 10/19/22 09:21 10/19/22 09:30 Temperature 97.9 F Pulse Rate 65 65 Respiratory Rate 20 Blood Pressure 128/78 130/79 Pulse Oximetry 97 96 Oxygen Delivery Method Room Air 10/19/22 09:30 10/19/22 09:45 10/19/22 10:00 Temperature Pulse Rate 63 62 Respiratory Rate 22 21 Blood Pressure 128/79 Pulse Oximetry 96 96 Oxygen Delivery Method 10/19/22 10:00 10/19/22 10:15 10/19/22 10:30 Temperature Pulse Rate 62 58 L Respiratory Rate 22 18 Blood Pressure 126/79 Pulse Oximetry 96 95 Oxygen Delivery Method 10/19/22 10:30 10/19/22 10:45 Temperature Pulse Rate 61 60 Respiratory Rate 22 Blood Pressure Pulse Oximetry 97 97 Oxygen Delivery Method Medical Decision Making Lab Data 10/19/22 09:30 10/19/22 09:30 Labs: Lab Results 10/19/22 10/19/22 10/19/22 Range/Units 09:30 09:30 09:30 WBC 4.8 (4.5-11.0) X10^3/uL RBC 3.64 L (4.0-5.2) X10^6/uL Hgb 12.2 (12.0-16.0) g/dL Hct 35.7 L (36-46) % MCV 98.2 (80-100) fL MCH 33.6 (26-34) PG MCHC 34.2 (30-36) % RDW 14.4 (11.6-14.8) % Plt Count 268 (150-400) X10^3/uL Neut % (Auto) 69.4 (50-75) % Lymph % (Auto) 14.4 L (25-40) % [place] % (Auto) 13.3 (3-14) % Eos % (Auto) 2.6 (2-4) % Baso % (Auto) 0.3 (0-2) % Neut # (Auto) 3400 (1191-5831) /uL Lymph # (Auto) 700 L (1408-2612) /uL [place] # (Auto) 600 (0-900) /uL Eos # (Auto) 100 (0-450) /uL Baso # (Auto) 0 (0-100) /uL PT 15.4 H (10.1-12.7) SECONDS INR 1.3 (0.9-1.3) Sodium 135 L (137-145) mmol/L Potassium 3.7 (3.4-5.1) mmol/L Chloride 101 (98-107) mmol/L Carbon Dioxide 28 (22-32) mmol/L BUN 14 (7-17) mg/dL Creatinine 0.56 (0.52-1.04) mg/dL Estimated GFR > 60 (>60) mL/min BUN/Creatinine Ratio 25.0 H (6-22) Glucose 106 (80-110) mg/dL Calcium 9.0 (8.4-10.2) mg/dL Magnesium 2.1 (1.6-2.3) mg/dL Total Bilirubin 0.6 (0.2-1.3) mg/dL AST 41 H (14-36) IU/L ALT 19 (<35) IU/L Alkaline Phosphatase 85 (38-126) U/L Total Creatine Kinase 112 (30-135) U/L CK-MB (CK-2) < 0.22 (<2.37) ng/mL CK-MB (CK-2) Rel Index 0.2 L (1.5-5.0) % Troponin I < 0.012 (0.01-0.034) ng/mL NT-Pro-B Natriuret Pep 376 (<450) pg/mL Total Protein 6.6 (6.3-8.2) g/dL Albumin 3.6 (3.5-5.0) g/dL Globulin 3.0 (1.7-4.1) g/dL Albumin/Globulin Ratio 1.2 (1.0-2.8) Lipase 81 (23-300) U/L MDM Narrative Medical decision making narrative: CC: 82-year-old female with AFib Complicating co-morbidities: age, anticoagulation, AFib, recent visits Data collected from: Patient Medical records reviewed: Prior notes reviewed in our EMR Differential considered, but not limited to: atrial fibrillation versus other arrhythmia versus CHF versus other Exam documented above, pertinent findings include: heart rate regular, minor ex piratory wheeze, no significant work of breathing, abdomen soft Lab Test results independently reviewed as above. Pertinent findings: Independently reviewed EKG as above Imaging studies independently reviewed: CXR NAP Re-evaluations: patient asymptomatic and in normal sinus for the duration of her visit Discussion: patient reports AFib this morning but it had resolved prior to her arrival. For the duration of her visit she is asymptomatic and in a normal sinus rhythm. Labs are unremarkable, physical exam is reassuring and repeat EKG demonstrates no significant change. Patient encouraged to continue taking her medications as directed and follow-up with her primary care provider. Return precautions discussed and questions answered to her apparent satisfaction Disposition: see below, along with detailed discharge instructions that have been reviewed with patient as well as indications for ED re-evaluation and additional outpatient follow up Discharge Plan Departure Patient Disposition: Home Clinical Impression: Paroxysmal atrial fibrillation Instructions: DI for Atrial Fibrillation Activity Restrictions/Additional Instructions: *You have been diagnosed with [ Paroxysmal atrial fibrillation. As we discussed your history and physical exam as well as labs and EKGs are reassuring. Thankfully you have not been in atrial fibrillation for the duration of your visit and as a result there is no indication for further treatment or intervention] *What to do: *Please continue to take your regular medications as directed. [ ] New medication prescriptions sent to your pharmacy: [ ] [ ] New medication written as a paper prescription [ ] No new medications given *Please follow up with your primary care provider in 2-3 days, call for an appointment. Let them know you were seen in the Emergency Department and that we ask that you be seen in follow up. We will electronically transmit a record of today's note if your PCP is in our system *Return to Emergency Department if you should have any new, worsening or concerning symptoms, such as [fever greater than 101 F, shaking chills, worsening pain, persistent vomiting or other bothersome symptoms] Prescriptions: No Action rosuvastatin 10 mg tablet 10 mg PO DAILY Qty: 90 3RF Eliquis 5 mg tablet 5 mg PO BID Qty: 180 3RF estradiol 0.5 mg tablet 0.5 mg PO DAILY Qty: 90 3RF Rx Instructions: off 5 days; repeat cycle liothyronine 5 mcg tablet 5 mcg PO DAILY Qty: 90 3RF metoprolol succinate 50 mg tablet extended release 24 hr 50 mg PO BID Qty: 180 3RF tramadol 50 mg tablet 50 mg PO BID PRN (Reason: pain) Qty: 180 1RF clobetasol 0.05 % ointment 1 g topical DAILY PRN eplerenone 25 mg tablet 25 mg PO DAILY furosemide 20 mg tablet 20 mg PO DAILY PRN (Reason: edema) flecainide 50 mg tablet 50 mg PO Q12H Qty: 60 0RF methotrexate sodium 2.5 mg tablet 10 mg PO QWEEK Patient Comments: 4 tables weekly flecainide 100 mg tablet 100 mg PO Q12H Qty: 60 0RF Referrals: Juarez Villalpando MD [Primary Care Provider] - Stand Alone Forms: Patient Portal/API
--- NOTE | 2022-10-19 09:12 | DI.RAD.S_ITS ---
PROCEDURE: XR CHEST 1V INDICATIONS: chest pain TECHNIQUE: One view of the chest was acquired. COMPARISON: [facility], CR, XR CHEST 1V, 10/12/2022, 13:07. FINDINGS: Surgical changes and devices: None. Lungs and pleura: Lungs are clear. No pleural effusions or pneumothorax. Mediastinum: Mediastinal contours appear normal. Heart size is normal. Bones and chest wall: No suspicious bony lesions. Overlying soft tissues appear unremarkable. IMPRESSION: No acute process. Dictated by: Toña Loyd M.D. on 10/19/2022 at 8:51 Approved by: Toña Loyd M.D. on 10/19/2022 at 8:52
[2022-10-19 09:41] LABS: Add Manual Diff / Slide Review NO; Basophils Absolute Auto 0 /uL (0-100); Basophils Percent Auto 0.3 % (0-2); Eosinophils Absolute Auto 100 /uL (0-450); Eosinophils Percent Auto 2.6 % (2-4); Hematocrit 35.7 % (36-46); Hemoglobin 12.2 g/dL (12.0-16.0); Lymphocytes Absolute Auto 700 /uL (1100-4500); Lymphocytes Percent Auto 14.4 % (25-40); Mean Corpuscular HGB Conc 34.2 % (30-36); Mean Corpuscular Hemoglobin 33.6 PG (26-34); Mean Corpuscular Volume 98.2 fL (80-100); Monocytes Absolute Auto 600 /uL (0-900); Monocytes Percent Auto 13.3 % (3-14); Neutrophils Absolute Auto 3400 /uL (1500-7000); Neutrophils Percent Auto 69.4 % (50-75); Platelet Count 268 X10^3/uL (150-400); Red Blood Cell Count 3.64 X10^6/uL (4.0-5.2); Red Cell Distribution Width 14.4 % (11.6-14.8); White Blood Cell Count 4.8 X10^3/uL (4.5-11.0)
[2022-10-19 09:47] LABS: INR 1.3 (0.9-1.3); Prothrombin Time 15.4 SECONDS (10.1-12.7)
[2022-10-19 10:11] LABS: Alanine Aminotransferase 19 IU/L (<35); Albumin 3.6 g/dL (3.5-5.0); Albumin Globulin Ratio 1.2 (1.0-2.8); Alkaline Phosphatase 85 U/L (38-126); Aspartate Aminotransferase 41 IU/L (14-36); Bilirubin Total 0.6 mg/dL (0.2-1.3); Blood Urea Nitrogen 14 mg/dL (7-17); Carbon Dioxide 28 mmol/L (22-32); Chloride 101 mmol/L (98-107); Creatine Kinase 112 U/L (30-135); Estimated Glomerular Filt Rate > 60 mL/min (>60); Glucose 106 mg/dL (80-110); HEMOLYSIS < 15 (0-50); Lipase 81 U/L (23-300); Magnesium 2.1 mg/dL (1.6-2.3); Potassium 3.7 mmol/L (3.4-5.1); Sodium 135 mmol/L (137-145); Total Protein 6.6 g/dL (6.3-8.2)
[2022-10-19 10:21] LABS: NT-proBNP (BNP-Adult 18+) 376 pg/mL (<450)
[2022-10-19 10:22] LABS: Troponin I < 0.012 ng/mL (0.01-0.034)
[2022-10-19] MEDS: SODIUM CHLORIDE 0.9% 1,000 ML 150 ML IV (10:28)
[2022-10-19 10:31] LABS: CKMB % Relative Index 0.2 % (1.5-5.0); Creatine Kinase MB < 0.22 ng/mL (<2.37)
== END 2022-10-19 11:13 | disposition home or self-care (01) ==
PROVIDERS: Emergency Provider Emergency Medicine; PCP Internal Medicine
DX: I48.0 Paroxysmal atrial fibrillation (principal); Z79.01 Long term (current) use of anticoagulants; R07.9 Chest pain, unspecified
CPT/HCPCS: 36415; 71045; 80053; 82550; 82553; 83690; 83735; 83880; 84484; 85025; 85610; 93005; 99284

== ENCOUNTER → 2022-12-12 12:23 | Outpatient (CLI) | payer MEDICARE, SELFPAY ==
[2021-08-31 10:44] VITALS: BMI 22.6
[2022-12-12 15:04] LABS: Blood Urea Nitrogen 17 mg/dL (7-17); Calcium 9.3 mg/dL (8.4-10.2); Carbon Dioxide 33 mmol/L (22-32); Chloride 100 mmol/L (98-107); Estimated Glomerular Filt Rate > 60 mL/min (>60); Glucose 83 mg/dL (80-110); HEMOLYSIS < 15 (0-50); Sodium 138 mmol/L (137-145)
== END ==
PROVIDERS: PCP Internal Medicine; Referring Provider Internal Medicine; Visit Provider Internal Medicine
DX: I50.32 Chronic diastolic (congestive) heart failure (principal)
CPT/HCPCS: 36415; 80048

== ENCOUNTER → 2023-01-02 12:11 | Outpatient (CLI) | payer MEDICARE, SELFPAY ==
[2021-08-31 10:44] VITALS: BMI 22.6
[2023-01-02 12:42] LABS: Add Manual Diff / Slide Review NO; Basophils Absolute Auto 0 /uL (0-100); Basophils Percent Auto 0.6 % (0-2); Eosinophils Absolute Auto 100 /uL (0-450); Eosinophils Percent Auto 3.4 % (2-4); Hematocrit 37.7 % (36-46); Hemoglobin 12.9 g/dL (12.0-16.0); Lymphocytes Absolute Auto 1300 /uL (1100-4500); Mean Corpuscular HGB Conc 34.1 % (30-36); Mean Corpuscular Hemoglobin 33.3 PG (26-34); Mean Corpuscular Volume 97.8 fL (80-100); Monocytes Absolute Auto 300 /uL (0-900); Monocytes Percent Auto 7.6 % (3-14); Neutrophils Absolute Auto 2600 /uL (1500-7000); Neutrophils Percent Auto 59.4 % (50-75); Platelet Count 218 X10^3/uL (150-400); Red Blood Cell Count 3.86 X10^6/uL (4.0-5.2); Red Cell Distribution Width 14.9 % (11.6-14.8); White Blood Cell Count 4.4 X10^3/uL (4.5-11.0)
[2023-01-02 13:12] LABS: Alanine Aminotransferase 14 IU/L (<35); Albumin 4.1 g/dL (3.5-5.0); Albumin Globulin Ratio 1.5 (1.0-2.8); Alkaline Phosphatase 62 U/L (38-126); Aspartate Aminotransferase 40 IU/L (14-36); BUN Creatinine Ratio 30.4 (6-22); Bilirubin Total 0.5 mg/dL (0.2-1.3); Blood Urea Nitrogen 21 mg/dL (7-17); Calcium 8.8 mg/dL (8.4-10.2); Carbon Dioxide 32 mmol/L (22-32); Chloride 101 mmol/L (98-107); Estimated Glomerular Filt Rate > 60 mL/min (>60); Globulin 2.8 g/dL (1.7-4.1); Glucose 88 mg/dL (80-110); HEMOLYSIS < 15 (0-50); Potassium 4.3 mmol/L (3.4-5.1); Sodium 137 mmol/L (137-145); Total Protein 6.9 g/dL (6.3-8.2)
== END ==
PROVIDERS: PCP Internal Medicine; Referring Provider Internal Medicine Rheumatology; Visit Provider Internal Medicine Rheumatology
DX: M06.09 Rheumatoid arthritis without rheumatoid factor, multiple sites (principal); Z79.899 Other long term (current) drug therapy; M81.0 Age-related osteoporosis without current pathological fracture
CPT/HCPCS: 36415; 80053; 85025

== ENCOUNTER → 2023-04-28 14:21 | Outpatient (CLI) | payer MEDICARE, SELFPAY ==
[2021-08-31 10:44] VITALS: BMI 22.6
[2023-04-28 15:27] LABS: Add Manual Diff / Slide Review NO; Basophils Absolute Auto 0 /uL (0-100); Basophils Percent Auto 0.5 % (0-2); Eosinophils Absolute Auto 200 /uL (0-450); Eosinophils Percent Auto 3.2 % (2-4); Hematocrit 37.5 % (36-46); Hemoglobin 12.9 g/dL (12.0-16.0); Lymphocytes Absolute Auto 1400 /uL (1100-4500); Lymphocytes Percent Auto 29.5 % (25-40); Mean Corpuscular HGB Conc 34.3 % (30-36); Mean Corpuscular Hemoglobin 34.4 PG (26-34); Mean Corpuscular Volume 100.4 fL (80-100); Monocytes Absolute Auto 300 /uL (0-900); Monocytes Percent Auto 6.1 % (3-14); Neutrophils Absolute Auto 2900 /uL (1500-7000); Neutrophils Percent Auto 60.7 % (50-75); Platelet Count 209 X10^3/uL (150-400); Red Blood Cell Count 3.73 X10^6/uL (4.0-5.2); Red Cell Distribution Width 14.4 % (11.6-14.8); White Blood Cell Count 4.8 X10^3/uL (4.5-11.0)
[2023-04-28 16:24] LABS: Alanine Aminotransferase 12 IU/L (<35); Albumin 4.1 g/dL (3.5-5.0); Albumin Globulin Ratio 1.4 (1.0-2.8); Alkaline Phosphatase 50 U/L (38-126); Aspartate Aminotransferase 40 IU/L (14-36); BUN Creatinine Ratio 22.2 (6-22); Bilirubin Total 0.8 mg/dL (0.2-1.3); Blood Urea Nitrogen 22 mg/dL (7-17); Calcium 9.4 mg/dL (8.4-10.2); Carbon Dioxide 29 mmol/L (22-32); Chloride 100 mmol/L (98-107); Estimated Glomerular Filt Rate 56 mL/min (>60); Globulin 2.9 g/dL (1.7-4.1); Glucose 90 mg/dL (80-110); HEMOLYSIS 30 (0-50); Potassium 4.5 mmol/L (3.4-5.1); Sodium 133 mmol/L (137-145)
== END ==
PROVIDERS: PCP Internal Medicine; Referring Provider Internal Medicine Rheumatology; Visit Provider Internal Medicine Rheumatology
DX: M06.09 Rheumatoid arthritis without rheumatoid factor, multiple sites (principal); Z79.899 Other long term (current) drug therapy; M81.0 Age-related osteoporosis without current pathological fracture
CPT/HCPCS: 36415; 80053; 85025

== ENCOUNTER → 2023-05-20 14:02 | Outpatient (CLI) | payer MEDICARE, SELFPAY ==
[2021-08-31 10:44] VITALS: BMI 22.6
--- NOTE | 2023-05-20 14:04 | DI.MG.S_ITS ---
BILATERAL DIGITAL SCREENING MAMMOGRAM 3D/2D WITH CAD: 05/20/2023 CLINICAL: Routine screening. Comparison is made to exams dated: 01/31/2022 mammogram, 12/22/2020 mammogram, and 11/04/2019 mammogram - [facility]. Both breasts are heterogeneously dense, which may obscure small masses (category c / 51-75% glandular tissue). Current study was also evaluated with a Computer Aided Detection (CAD) system. No significant masses, calcifications, or other findings are seen in either breast. There has been no significant interval change. IMPRESSION: NEGATIVE There is no mammographic evidence of malignancy. A 1 year screening mammogram is recommended. This exam was interpreted at Station ID: [id number]. NOTE: For mammograms, a report in lay terms will be sent to the patient. Approximately 15% of breast malignancies will not be visualized mammographically. In the management of a palpable breast mass, a negative mammogram must not discourage biopsy of a clinically suspicious lesion. Electronically Signed By: Ana branch/khoi:05/20/2023 16:35:20 letter sent: Normal Exam ACR BI-RADS Category 1: Negative [id number]
== END ==
PROVIDERS: PCP Internal Medicine; Referring Provider Internal Medicine; Visit Provider Internal Medicine
DX: Z12.31 Encounter for screening mammogram for malignant neoplasm of breast (principal)
CPT/HCPCS: 77063; 77067

== ENCOUNTER → 2023-07-10 11:09 | Outpatient (CLI) | payer MEDICARE, SELFPAY ==
[2021-08-31 10:44] VITALS: BMI 22.6
[2023-07-10 12:05] LABS: Add Manual Diff / Slide Review NO; Basophils Absolute Auto 0 /uL (0-100); Basophils Percent Auto 0.5 % (0-2); Eosinophils Absolute Auto 100 /uL (0-450); Eosinophils Percent Auto 2.1 % (2-4); Hematocrit 38.4 % (36-46); Hemoglobin 13.2 g/dL (12.0-16.0); Lymphocytes Absolute Auto 1200 /uL (1100-4500); Lymphocytes Percent Auto 25.3 % (25-40); Mean Corpuscular HGB Conc 34.3 % (30-36); Mean Corpuscular Hemoglobin 34.3 PG (26-34); Monocytes Absolute Auto 300 /uL (0-900); Monocytes Percent Auto 7.2 % (3-14); Neutrophils Absolute Auto 3100 /uL (1500-7000); Neutrophils Percent Auto 64.9 % (50-75); Platelet Count 217 X10^3/uL (150-400); Red Blood Cell Count 3.84 X10^6/uL (4.0-5.2); Red Cell Distribution Width 13.9 % (11.6-14.8); White Blood Cell Count 4.7 X10^3/uL (4.5-11.0)
[2023-07-10 12:23] LABS: Alanine Aminotransferase 12 IU/L (<35); Albumin 4.2 g/dL (3.5-5.0); Albumin Globulin Ratio 1.5 (1.0-2.8); Alkaline Phosphatase 58 U/L (38-126); Aspartate Aminotransferase 36 IU/L (14-36); Bilirubin Total 0.9 mg/dL (0.2-1.3); Blood Urea Nitrogen 18 mg/dL (7-17); Calcium 9.5 mg/dL (8.4-10.2); Carbon Dioxide 30 mmol/L (22-32); Chloride 100 mmol/L (98-107); Estimated Glomerular Filt Rate > 60 mL/min (>60); Globulin 2.8 g/dL (1.7-4.1); Glucose 87 mg/dL (80-110); HEMOLYSIS < 15 (0-50); Potassium 4.3 mmol/L (3.4-5.1); Sodium 137 mmol/L (137-145)
== END ==
PROVIDERS: PCP Internal Medicine; Referring Provider Internal Medicine Rheumatology; Visit Provider Internal Medicine Rheumatology
DX: M06.09 Rheumatoid arthritis without rheumatoid factor, multiple sites (principal); M81.0 Age-related osteoporosis without current pathological fracture; Z79.899 Other long term (current) drug therapy
CPT/HCPCS: 36415; 80053; 85025

== ENCOUNTER 2023-09-06 23:19 | Emergency (ER) | payer MEDICARE, SELFPAY ==
[2021-08-31 10:44] VITALS: BMI 22.6
[2023-09-06 23:30] VITALS: BP 162/74; PULSE 62; RESP 16; TEMP 36.3; O2SAT 96; BMI 22.1
--- NOTE | 2023-09-06 23:46 | ED.EPISTAXIS ---
HPI - Epistaxis General Chief complaint: Nasal Problem Stated complaint: Nose bleed... Time Seen by Provider: 09/06/23 23:27 Source: patient Mode of arrival: Ambulatory History of Present Illness HPI Narrative: 83-year-old female with history of Eliquis use presents by private vehicle from home for nosebleed. Bleeding began approximately 9:00 p.m.. She attempted to stem the flow blood with tissues but this was unsuccessful, so she decided to present for evaluation. 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 Related Data Home Medications Medication Instructions Recorded Confirmed clobetasol 0.05 % topical ointment 1 g topical DAILY PRN 08/31/21 03/11/23 eplerenone 25 mg tablet 25 mg PO DAILY 09/02/22 03/11/23 furosemide 20 mg tablet 20 mg PO DAILY PRN edema 09/02/22 03/11/23 methotrexate sodium 2.5 mg tablet 10 mg PO QWEEK 09/02/22 03/11/23 Previous Rx's Medication Instructions Recorded flecainide 100 mg tablet 100 mg PO Q12H #60 tabs 10/15/22 albuterol sulfate 90 mcg/actuation 2 puff inhalation Q6H PRN 10/31/22 aerosol inhaler shortness of breath or wheezing #8.5 grams rosuvastatin 10 mg tablet 10 mg PO DAILY #90 tabs 02/21/23 mirtazapine 15 mg disintegrating 7.5 mg (1/2 x 15 mg) PO DAILY #45 03/11/23 tablet tabs tramadol 50 mg tablet 50 mg PO BID PRN pain #180 tabs 03/11/23 apixaban 5 mg tablet (Eliquis) 5 mg PO BID #180 tabs 04/11/23 metoprolol succinate 50 mg 50 mg PO BID #180 tabs 07/02/23 tablet,extended release 24 hr liothyronine 5 mcg tablet 5 mcg PO DAILY #90 tabs 07/14/23 Allergies Allergy/AdvReac Type Severity Reaction Status Date / Time alendronate sodium AdvReac Intermediate Gastrointestinal Verified 03/11/23 13:55 Upset mirtazapine AdvReac Intermediate bad dreams Verified 03/11/23 13:55 codeine AdvReac Mild ITCHY Verified 03/11/23 13:55 sertraline AdvReac Mild fatigue Verified 03/11/23 13:55 Review of Systems Review of Systems Narrative: See HPI Patient History Medical History Chronic diastolic (congestive) heart failure Menopausal syndrome Osteopenia Chronic anticoagulation Generalized anxiety disorder Acquired hypothyroidism Mixed hyperlipidemia Essential hypertension Paroxysmal atrial fibrillation Insomnia Rheumatoid arthritis Surgical History H/O: hysterectomy Family History Father Dementia Mother Dementia Atrial fibrillation Social History household members: family Smoking Status: Former smoker alcohol intake: current Smoking Status: Former smoker alcohol intake frequency: holidays/special occasions only Substance Use Type: does not use Exam Initial Vital Signs Initial Vital Signs: Vital Signs Temperature 97.4 F L 09/06/23 23:30 Pulse Rate 62 09/06/23 23:30 Respiratory Rate 16 09/06/23 23:30 Blood Pressure 162/74 H 09/06/23 23:30 Pulse Oximetry 96 09/06/23 23:30 Oxygen Delivery Method Room Air 09/06/23 23:30 Const: Awake, alert, no acute distress, nontoxic appearing HEENT: Dried blood around nares, no active bleeding Skin: Warm, Dry, intact, no rashes Neuro: AO x3, CN II-XII grossly intact, moves all extremities Course Orders Ordered: Discontinued Medications Oxymetazoline HCl (Oxymetazoline Nasal [place] 30 Ml) 2 sprays NASAL NOW ONE Stop: 09/06/23 23:38 Last Admin: 09/06/23 23:53 Dose: 2 sprays Documented By: GC Vital Signs Vital signs: Vital Signs - 8 hr 09/06/23 23:30 09/07/23 00:55 Temperature 97.4 F L Pulse Rate 62 56 L Respiratory Rate 16 18 Blood Pressure 162/74 H 133/78 Pulse Oximetry 96 96 Oxygen Delivery Method Room Air Room Air MDM - Epistaxis Differential Diagnosis Differential diagnosis: Likely nasal bone fracture, anterior epistaxis and posterior epistaxis MDM Narrative Medical decision making narrative: Epistaxis at home. She was given Afrin on arrival and clamps applied. After clamps were removed there was no further episodes of bleeding. She was observed for a time. And there was no recurrence of bleeding. Patient instructed to use Afrin prior to bed, to avoid manipulating the area to prevent rebleeding and to follow up as usual with her primary care physician. Discharge Plan Departure Patient Disposition: Home Clinical Impression: Epistaxis Instructions: DI for Nosebleed Activity Restrictions/Additional Instructions: Avoid touching or manipulating your nose for the next day. Use the Afrin to help prevent bleeding. Prescriptions: No Action albuterol sulfate 90 mcg/actuation HFA aerosol inhaler 2 puff inhalation Q6H PRN (Reason: shortness of breath or wheezing) Qty: 8.5 5RF rosuvastatin 10 mg tablet 10 mg PO DAILY Qty: 90 3RF Eliquis 5 mg tablet 5 mg PO BID Qty: 180 3RF metoprolol succinate 50 mg tablet extended release 24 hr 50 mg PO BID Qty: 180 3RF liothyronine 5 mcg tablet 5 mcg PO DAILY Qty: 90 3RF clobetasol 0.05 % ointment 1 g topical DAILY PRN eplerenone 25 mg tablet 25 mg PO DAILY furosemide 20 mg tablet 20 mg PO DAILY PRN (Reason: edema) mirtazapine 15 mg tablet,disintegrating 7.5 mg PO DAILY Qty: 45 3RF tramadol 50 mg tablet 50 mg PO BID PRN (Reason: pain) Qty: 180 1RF methotrexate sodium 2.5 mg tablet 10 mg PO QWEEK Patient Comments: 4 tables weekly flecainide 100 mg tablet 100 mg PO Q12H Qty: 60 0RF Referrals: Juarez Villalpando MD [Primary Care Provider] - Stand Alone Forms: Patient Portal/API
[2023-09-06] MEDS: OXYMETAZOLINE NASAL SPRAY 30 ML 2 SPRAYS NASAL (23:53)
[2023-09-07 00:55] VITALS: BP 133/78; PULSE 56; RESP 18; O2SAT 96
== END 2023-09-07 00:55 | disposition home or self-care (01) ==
PROVIDERS: Emergency Provider Emergency Medicine; PCP Internal Medicine
DX: R04.0 Epistaxis (principal)
CPT/HCPCS: 99282

== ENCOUNTER → 2023-10-14 10:11 | Outpatient (CLI) | payer MEDICARE, SELFPAY ==
[2021-08-31 10:44] VITALS: BMI 22.6
== END ==
LOC: WC 10:50
PROVIDERS: PCP Internal Medicine; Referring Provider Internal Medicine; Visit Provider Surgery
DX: L97.812 Non-pressure chronic ulcer of other part of right lower leg with fat layer exposed (principal); I87.2 Venous insufficiency (chronic) (peripheral); L89.893 Pressure ulcer of other site, stage 3; R60.0 Localized edema; L53.9 Erythematous condition, unspecified; M21.6X2 Other acquired deformities of left foot; F19.10 Other psychoactive substance abuse, uncomplicated
CPT/HCPCS: 11042; 87070; 87075; 87077; 87186; 87205; 99213

== ENCOUNTER → 2023-10-21 13:06 | Outpatient (CLI) | payer MEDICARE, SELFPAY ==
[2021-08-31 10:44] VITALS: BMI 22.6
== END ==
LOC: WC 13:13
PROVIDERS: PCP Internal Medicine; Referring Provider Internal Medicine; Visit Provider Surgery
DX: L97.322 Non-pressure chronic ulcer of left ankle with fat layer exposed (principal); I87.2 Venous insufficiency (chronic) (peripheral); R60.0 Localized edema; L53.9 Erythematous condition, unspecified; L08.89 Other specified local infections of the skin and subcutaneous tissue; I48.91 Unspecified atrial fibrillation; M06.9 Rheumatoid arthritis, unspecified; Z79.2 Long term (current) use of antibiotics
CPT/HCPCS: 11042; 99213

== ENCOUNTER → 2023-10-28 12:52 | Outpatient (CLI) | payer MEDICARE, SELFPAY ==
[2021-08-31 10:44] VITALS: BMI 22.6
== END ==
PROVIDERS: PCP Internal Medicine; Referring Provider Internal Medicine; Visit Provider Physician Assistant
DX: L97.322 Non-pressure chronic ulcer of left ankle with fat layer exposed (principal); I87.2 Venous insufficiency (chronic) (peripheral); R60.0 Localized edema; I48.91 Unspecified atrial fibrillation; Z79.01 Long term (current) use of anticoagulants
CPT/HCPCS: 11042; 99213

== ENCOUNTER → 2023-11-04 11:49 | Outpatient (CLI) | payer MEDICARE, SELFPAY ==
[2021-08-31 10:44] VITALS: BMI 22.6
== END ==
LOC: WC 11:51
PROVIDERS: PCP Internal Medicine; Referring Provider Internal Medicine; Visit Provider Surgery
DX: L97.322 Non-pressure chronic ulcer of left ankle with fat layer exposed (principal); I87.2 Venous insufficiency (chronic) (peripheral); R60.0 Localized edema; I83.023 Varicose veins of left lower extremity with ulcer of ankle; I48.91 Unspecified atrial fibrillation; Z79.01 Long term (current) use of anticoagulants
CPT/HCPCS: 11042; 99213

== ENCOUNTER → 2023-11-07 11:41 | Outpatient (CLI) | payer MEDICARE, SELFPAY ==
[2021-08-31 10:44] VITALS: BMI 22.6
[2023-11-07 12:22] LABS: Add Manual Diff / Slide Review NO; Basophils Absolute Auto 0 /uL (0-100); Basophils Percent Auto 0.2 % (0-2); Eosinophils Absolute Auto 100 /uL (0-450); Hematocrit 37.5 % (36-46); Hemoglobin 12.7 g/dL (12.0-16.0); Lymphocytes Absolute Auto 1000 /uL (1100-4500); Lymphocytes Percent Auto 15.9 % (25-40); Mean Corpuscular HGB Conc 33.8 % (30-36); Mean Corpuscular Hemoglobin 33.8 PG (26-34); Mean Corpuscular Volume 99.7 fL (80-100); Monocytes Absolute Auto 400 /uL (0-900); Monocytes Percent Auto 6.7 % (3-14); Neutrophils Absolute Auto 4600 /uL (1500-7000); Neutrophils Percent Auto 76.2 % (50-75); Platelet Count 217 X10^3/uL (150-400); Red Blood Cell Count 3.76 X10^6/uL (4.0-5.2); Red Cell Distribution Width 13.6 % (11.6-14.8)
[2023-11-07 12:50] LABS: Alanine Aminotransferase 12 IU/L (<35); Albumin 3.9 g/dL (3.5-5.0); Albumin Globulin Ratio 1.6 (1.0-2.8); Alkaline Phosphatase 70 U/L (38-126); Aspartate Aminotransferase 38 IU/L (14-36); BUN Creatinine Ratio 24.3 (6-22); Bilirubin Total 0.7 mg/dL (0.2-1.3); Blood Urea Nitrogen 17 mg/dL (7-17); Calcium 9.1 mg/dL (8.4-10.2); Carbon Dioxide 30 mmol/L (22-32); Chloride 103 mmol/L (98-107); Estimated Glomerular Filt Rate > 60 mL/min (>60); Globulin 2.4 g/dL (1.7-4.1); Glucose 98 mg/dL (80-110); HEMOLYSIS < 15 (0-50); Potassium 4.1 mmol/L (3.4-5.1); Sodium 139 mmol/L (137-145); Total Protein 6.3 g/dL (6.3-8.2)
== END ==
PROVIDERS: PCP Internal Medicine; Referring Provider Internal Medicine Rheumatology; Visit Provider Internal Medicine Rheumatology
DX: M06.09 Rheumatoid arthritis without rheumatoid factor, multiple sites (principal)
CPT/HCPCS: 11042; 36415; 80053; 85025

== ENCOUNTER → 2023-11-07 15:13 | Outpatient (CLI) | payer MEDICARE, SELFPAY ==
[2021-08-31 10:44] VITALS: BMI 22.6
== END ==
PROVIDERS: PCP Internal Medicine; Referring Provider Internal Medicine; Visit Provider Surgery
DX: L97.322 Non-pressure chronic ulcer of left ankle with fat layer exposed (principal); I83.023 Varicose veins of left lower extremity with ulcer of ankle; I87.2 Venous insufficiency (chronic) (peripheral); R60.0 Localized edema; L53.9 Erythematous condition, unspecified; M25.572 Pain in left ankle and joints of left foot; I48.91 Unspecified atrial fibrillation; Z79.01 Long term (current) use of anticoagulants
CPT/HCPCS: 11042

== ENCOUNTER → 2023-11-11 11:13 | Outpatient (CLI) | payer MEDICARE, SELFPAY ==
[2021-08-31 10:44] VITALS: BMI 22.6
== END ==
PROVIDERS: PCP Internal Medicine; Referring Provider Internal Medicine; Visit Provider Surgery
DX: L97.322 Non-pressure chronic ulcer of left ankle with fat layer exposed (principal); I87.2 Venous insufficiency (chronic) (peripheral); R60.0 Localized edema; L53.9 Erythematous condition, unspecified; I48.91 Unspecified atrial fibrillation; Z79.01 Long term (current) use of anticoagulants
CPT/HCPCS: 11042; 99213

== ENCOUNTER → 2023-11-18 11:10 | Outpatient (CLI) | payer MEDICARE, SELFPAY ==
[2021-08-31 10:44] VITALS: BMI 22.6
== END ==
LOC: WC 11:14
PROVIDERS: PCP Internal Medicine; Referring Provider Internal Medicine; Visit Provider Surgery
DX: L97.322 Non-pressure chronic ulcer of left ankle with fat layer exposed (principal); I87.2 Venous insufficiency (chronic) (peripheral); I83.023 Varicose veins of left lower extremity with ulcer of ankle; R60.0 Localized edema; L53.9 Erythematous condition, unspecified; M25.572 Pain in left ankle and joints of left foot; I48.91 Unspecified atrial fibrillation; Z79.01 Long term (current) use of anticoagulants
CPT/HCPCS: 11042

== ENCOUNTER → 2023-11-25 14:15 | Outpatient (CLI) | payer MEDICARE, SELFPAY ==
[2021-08-31 10:44] VITALS: BMI 22.6
== END ==
PROVIDERS: PCP Internal Medicine; Referring Provider Internal Medicine; Visit Provider Surgery
DX: L97.322 Non-pressure chronic ulcer of left ankle with fat layer exposed (principal); I87.2 Venous insufficiency (chronic) (peripheral); I83.023 Varicose veins of left lower extremity with ulcer of ankle; R60.0 Localized edema; L53.9 Erythematous condition, unspecified; I48.91 Unspecified atrial fibrillation; Z79.01 Long term (current) use of anticoagulants
CPT/HCPCS: 11042

== ENCOUNTER → 2023-11-27 13:10 | Outpatient (CLI) | payer MEDICARE, SELFPAY ==
[2021-08-31 10:44] VITALS: BMI 22.6
== END ==
LOC: WC 13:15
PROVIDERS: PCP Internal Medicine; Referring Provider Internal Medicine; Visit Provider Surgery
DX: L97.822 Non-pressure chronic ulcer of other part of left lower leg with fat layer exposed (principal); I87.2 Venous insufficiency (chronic) (peripheral); R60.0 Localized edema; L53.9 Erythematous condition, unspecified
CPT/HCPCS: 99212

== ENCOUNTER → 2023-12-02 13:01 | Outpatient (CLI) | payer MEDICARE, SELFPAY ==
[2021-08-31 10:44] VITALS: BMI 22.6
== END ==
PROVIDERS: PCP Internal Medicine; Referring Provider Internal Medicine; Visit Provider Surgery
DX: L97.322 Non-pressure chronic ulcer of left ankle with fat layer exposed (principal); I87.2 Venous insufficiency (chronic) (peripheral); R60.0 Localized edema; I83.023 Varicose veins of left lower extremity with ulcer of ankle; I48.91 Unspecified atrial fibrillation
CPT/HCPCS: 11042

== ENCOUNTER → 2023-12-09 11:04 | Outpatient (CLI) | payer MEDICARE, SELFPAY ==
[2021-08-31 10:44] VITALS: BMI 22.6
== END ==
PROVIDERS: PCP Internal Medicine; Referring Provider Internal Medicine; Visit Provider Surgery
DX: L97.322 Non-pressure chronic ulcer of left ankle with fat layer exposed (principal); I87.2 Venous insufficiency (chronic) (peripheral); R60.0 Localized edema; I48.91 Unspecified atrial fibrillation; Z79.01 Long term (current) use of anticoagulants
CPT/HCPCS: 11042; 99213

== ENCOUNTER → 2023-12-12 | Outpatient (CLI) | payer MEDICARE, SELFPAY ==
[2021-08-31 10:44] VITALS: BMI 22.6
== END ==
LOC: WC 14:57
PROVIDERS: PCP Internal Medicine; Referring Provider Internal Medicine; Visit Provider Physician Assistant
DX: L97.322 Non-pressure chronic ulcer of left ankle with fat layer exposed (principal); I87.2 Venous insufficiency (chronic) (peripheral); R60.0 Localized edema
CPT/HCPCS: 29581

== ENCOUNTER → 2023-12-16 10:56 | Outpatient (CLI) | payer MEDICARE, SELFPAY ==
[2021-08-31 10:44] VITALS: BMI 22.6
== END ==
PROVIDERS: PCP Internal Medicine; Referring Provider Internal Medicine; Visit Provider Surgery
DX: L97.322 Non-pressure chronic ulcer of left ankle with fat layer exposed (principal); I87.2 Venous insufficiency (chronic) (peripheral); R60.0 Localized edema; I48.91 Unspecified atrial fibrillation; Z79.01 Long term (current) use of anticoagulants
CPT/HCPCS: 11042

== ENCOUNTER → 2023-12-23 10:48 | Outpatient (CLI) | payer MEDICARE, SELFPAY ==
[2021-08-31 10:44] VITALS: BMI 22.6
== END ==
LOC: WC 10:49
PROVIDERS: PCP Internal Medicine; Referring Provider Internal Medicine; Visit Provider Surgery
DX: L97.322 Non-pressure chronic ulcer of left ankle with fat layer exposed (principal); I87.2 Venous insufficiency (chronic) (peripheral); I83.023 Varicose veins of left lower extremity with ulcer of ankle; R60.0 Localized edema; Z79.01 Long term (current) use of anticoagulants
CPT/HCPCS: 11042

== ENCOUNTER → 2023-12-30 11:53 | Outpatient (CLI) | payer MEDICARE, SELFPAY ==
[2021-08-31 10:44] VITALS: BMI 22.6
== END ==
PROVIDERS: PCP Internal Medicine; Referring Provider Internal Medicine; Visit Provider Physician Assistant
DX: L97.322 Non-pressure chronic ulcer of left ankle with fat layer exposed (principal); I87.2 Venous insufficiency (chronic) (peripheral); R60.0 Localized edema
CPT/HCPCS: 29581

== ENCOUNTER → 2024-01-06 13:20 | Outpatient (CLI) | payer MEDICARE, SELFPAY ==
[2021-08-31 10:44] VITALS: BMI 22.6
== END ==
LOC: WC 13:23
PROVIDERS: PCP Internal Medicine; Referring Provider Internal Medicine; Visit Provider Surgery
DX: L97.322 Non-pressure chronic ulcer of left ankle with fat layer exposed (principal); I83.023 Varicose veins of left lower extremity with ulcer of ankle; I87.2 Venous insufficiency (chronic) (peripheral); R60.0 Localized edema; Z79.01 Long term (current) use of anticoagulants
CPT/HCPCS: 11042

== ENCOUNTER → 2024-01-13 10:00 | Outpatient (CLI) | payer MEDICARE, SELFPAY ==
[2021-08-31 10:44] VITALS: BMI 22.6
== END ==
PROVIDERS: PCP Internal Medicine; Referring Provider Internal Medicine; Visit Provider Surgery
DX: I87.2 Venous insufficiency (chronic) (peripheral) (principal); R60.0 Localized edema
CPT/HCPCS: 99213

== ENCOUNTER → 2024-01-14 16:14 | Outpatient (CLI) | payer MEDICARE, SELFPAY ==
[2021-08-31 10:44] VITALS: BMI 22.6
[2024-01-14 16:55] LABS: Add Manual Diff / Slide Review NO; Basophils Absolute Auto 0 /uL (0-100); Basophils Percent Auto 0.4 % (0-2); Eosinophils Absolute Auto 100 /uL (0-450); Eosinophils Percent Auto 1.8 % (2-4); Hematocrit 38.1 % (36-46); Hemoglobin 12.8 g/dL (12.0-16.0); Lymphocytes Absolute Auto 1300 /uL (1100-4500); Lymphocytes Percent Auto 26.4 % (25-40); Mean Corpuscular HGB Conc 33.6 % (30-36); Mean Corpuscular Volume 98.3 fL (80-100); Monocytes Absolute Auto 300 /uL (0-900); Neutrophils Absolute Auto 3300 /uL (1500-7000); Neutrophils Percent Auto 65.4 % (50-75); Platelet Count 216 X10^3/uL (150-400); Red Blood Cell Count 3.88 X10^6/uL (4.0-5.2); Red Cell Distribution Width 14.4 % (11.6-14.8)
[2024-01-14 17:14] LABS: Alanine Aminotransferase 17 IU/L (<35); Albumin 4.2 g/dL (3.5-5.0); Albumin Globulin Ratio 1.8 (1.0-2.8); Alkaline Phosphatase 56 U/L (38-126); Aspartate Aminotransferase 42 IU/L (14-36); BUN Creatinine Ratio 36.1 (6-22); Bilirubin Total 0.6 mg/dL (0.2-1.3); Blood Urea Nitrogen 26 mg/dL (7-17); Calcium 9.2 mg/dL (8.4-10.2); Carbon Dioxide 28 mmol/L (22-32); Chloride 104 mmol/L (98-107); Estimated Glomerular Filt Rate > 60 mL/min (>60); Globulin 2.3 g/dL (1.7-4.1); Glucose 115 mg/dL (80-110); HEMOLYSIS < 15 (0-50); Sodium 138 mmol/L (137-145); Total Protein 6.5 g/dL (6.3-8.2)
== END ==
LOC: LAB 16:16
PROVIDERS: PCP Internal Medicine; Referring Provider Internal Medicine Rheumatology; Visit Provider Internal Medicine Rheumatology
DX: M06.09 Rheumatoid arthritis without rheumatoid factor, multiple sites (principal); Z51.81 Encounter for therapeutic drug level monitoring
CPT/HCPCS: 36415; 80053; 85025

== ENCOUNTER → 2024-01-20 10:18 | Outpatient (CLI) | payer MEDICARE, SELFPAY ==
[2021-08-31 10:44] VITALS: BMI 22.6
== END ==
LOC: WC 10:19
PROVIDERS: PCP Internal Medicine; Referring Provider Internal Medicine; Visit Provider Surgery
DX: I87.2 Venous insufficiency (chronic) (peripheral) (principal); L97.322 Non-pressure chronic ulcer of left ankle with fat layer exposed; Z79.01 Long term (current) use of anticoagulants
CPT/HCPCS: 99212; 99213

== ENCOUNTER → 2024-04-16 10:41 | Outpatient (CLI) | payer MEDICARE, SELFPAY ==
[2021-08-31 10:44] VITALS: BMI 22.6
[2024-04-16 12:06] LABS: Add Manual Diff / Slide Review NO; Basophils Absolute Auto 0 /uL (0-100); Basophils Percent Auto 0.4 % (0-2); Eosinophils Absolute Auto 100 /uL (0-450); Hematocrit 38.7 % (36-46); Hemoglobin 12.9 g/dL (12.0-16.0); Lymphocytes Absolute Auto 1100 /uL (1100-4500); Lymphocytes Percent Auto 22.5 % (25-40); Mean Corpuscular HGB Conc 33.3 % (30-36); Mean Corpuscular Hemoglobin 33.1 PG (26-34); Mean Corpuscular Volume 99.5 fL (80-100); Monocytes Absolute Auto 400 /uL (0-900); Neutrophils Absolute Auto 3300 /uL (1500-7000); Neutrophils Percent Auto 67.1 % (50-75); Platelet Count 281 X10^3/uL (150-400); Red Blood Cell Count 3.89 X10^6/uL (4.0-5.2); Red Cell Distribution Width 15.6 % (11.6-14.8); White Blood Cell Count 4.9 X10^3/uL (4.5-11.0)
[2024-04-16 12:22] LABS: Alanine Aminotransferase 15 IU/L (<35); Albumin Globulin Ratio 1.7 (1.0-2.8); Alkaline Phosphatase 66 U/L (38-126); Aspartate Aminotransferase 41 IU/L (14-36); BUN Creatinine Ratio 30.8 (6-22); Bilirubin Total 0.6 mg/dL (0.2-1.3); Blood Urea Nitrogen 20 mg/dL (7-17); Calcium 9.4 mg/dL (8.4-10.2); Carbon Dioxide 30 mmol/L (22-32); Chloride 102 mmol/L (98-107); Estimated Glomerular Filt Rate > 60 mL/min (>60); Globulin 2.4 g/dL (1.7-4.1); Glucose 89 mg/dL (80-110); HEMOLYSIS < 15 (0-50); Potassium 4.3 mmol/L (3.4-5.1); Sodium 137 mmol/L (137-145); Total Protein 6.4 g/dL (6.3-8.2)
== END ==
LOC: LAB 10:43
PROVIDERS: PCP Internal Medicine; Referring Provider Internal Medicine Rheumatology; Visit Provider Internal Medicine Rheumatology
DX: M06.09 Rheumatoid arthritis without rheumatoid factor, multiple sites (principal); Z51.81 Encounter for therapeutic drug level monitoring
CPT/HCPCS: 36415; 80053; 85025

== ENCOUNTER → 2024-05-29 09:58 | Outpatient (CLI) | payer MEDICARE, SELFPAY ==
[2021-08-31 10:44] VITALS: BMI 22.6
--- NOTE | 2024-05-29 10:07 | DI.RAD.S_ITS ---
PROCEDURE: XR CHEST 2V INDICATIONS: cough TECHNIQUE: 2 views of the chest were acquired. COMPARISON: [facility], CR, XR CHEST 1V, 10/19/2022, 9:21. [facility], CR, XR CHEST 1V, 10/12/2022, 13:07. FINDINGS: Surgical changes and devices: None. Lungs and pleura: Bilateral perihilar and lower lung opacities, greater on the right. No pleural effusions. Mediastinum: Heart size is at the upper limit of normal, unchanged Bones and chest wall: Degenerative changes. IMPRESSION: Right greater than left perihilar and lower lung opacities, likely infectious. Consider future imaging surveillance to assess for resolution. Dictated by: Dez Kent M.D. on 05/29/2024 at 9:34 Approved by: Dez Kent M.D. on 05/29/2024 at 9:35
[2024-05-29 10:46] LABS: COVID-19 CEPHEID 4-PLEX PCR Negative (Negative); Influenza A - CEPHEID Flu A NEGATIVE (NEGATIVE); Influenza B - CEPHEID Flu B NEGATIVE (NEGATIVE); Respiratory Syncytial Virus Negative (Negative)
== END ==
PROVIDERS: PCP Internal Medicine; Referring Provider Nurse Practitioner Family; Visit Provider Nurse Practitioner Family
DX: R06.02 Shortness of breath (principal); R50.9 Fever, unspecified
CPT/HCPCS: 0241U; 71046

== ENCOUNTER 2024-06-06 14:09 | Inpatient (IN) | payer MEDICARE, SELFPAY ==
[2021-08-31 10:44] VITALS: BMI 22.6
[2024-06-06] VITALS (16 sets, daily range): BP systolic 116–155; BP diastolic 56–87; PULSE 68–79; RESP 17–30; TEMP 36.3–37.3; O2SAT 86–97; BMI 22.1
--- NOTE | 2024-06-06 14:47 | ED_ITS ---
HPI - SOB/Dyspnea General Chief Complaint: Shortness of Breath/Dyspnea Stated Complaint: diff breathing Time Seen by Provider: 06/06/24 14:47 Source: patient, RN notes reviewed and old records reviewed Mode of arrival: Ambulatory Limitations: no limitations History of Present Illness HPI Narrative: 84-year-old female history of atrial fibrillation on apixaban, hypertension, dyslipidemia, rheumatoid arthritis, hypothyroidism who presents with complaint of shortness of breath for about a month. Patient states that is not been improving she went to the walk-in clinic and got antibiotics she took doxycycline and cefdinir for about 10 days after she was told she would pneumonia. She has not really had any improvement of her symptoms. She states that she feels short of breath particularly with exertion she does have to stop and take a break and has states it has been slowly progressive. She had a fever of 101 F in the last month but no fevers in the last 1-2 weeks. She was has a little bit of nasal congestion little bit of nonproductive cough. No chest pain or pressure. No nausea or vomiting. No major issues with bowel movements. No dysuria, urgency or frequency patient states no new swelling of her extremities. She denies any orthopnea. She notes some little bit increased generalized weakness but relates this to being less active because of her shortness of breath. Patient states no recent changes to her medications. She states she has a prior history of hysterectomy. No prior cardiac interventions. She takes Eliquis, metoprolol, flecainide, liothyronine, rosuvastatin, furosemide and eplerenone. Smoked for 16 years quit in 1974 has a 1 glass of alcohol weekly no recreational drugs. Dr. Villalpando is her primary care physician. Dr. Robles is her forest resource specialist. She presents today as she was not had any improvement after completing her antibiotics. Related Data Home Medications Medication Instructions Recorded Confirmed clobetasol 0.05 % topical ointment 1 g topical DAILY PRN 08/31/21 05/29/24 eplerenone 25 mg tablet 25 mg PO DAILY 09/02/22 05/29/24 furosemide 20 mg tablet 20 mg PO DAILY PRN edema 09/02/22 05/29/24 methotrexate sodium 2.5 mg tablet 10 mg PO QWEEK 09/02/22 05/29/24 Previous Rx's Medication Instructions Recorded flecainide 100 mg tablet 100 mg PO Q12H #60 tabs 10/15/22 albuterol sulfate 90 mcg/actuation 2 puff inhalation Q6H PRN 10/31/22 aerosol inhaler shortness of breath or wheezing #8.5 grams apixaban 5 mg tablet (Eliquis) 5 mg PO BID #180 tabs 04/11/23 metoprolol succinate 50 mg 50 mg PO BID #180 tabs 07/02/23 tablet,extended release 24 hr tramadol 50 mg tablet 50 mg PO BID PRN pain #180 tabs 11/18/23 rosuvastatin 10 mg tablet 10 mg PO DAILY #90 tabs 01/05/24 liothyronine 5 mcg tablet 5 mcg PO DAILY #90 tabs 05/17/24 cefdinir 300 mg capsule 300 mg PO BID #10 caps 05/31/24 doxycycline hyclate 100 mg capsule 100 mg PO BID #10 caps 05/31/24 Allergies Allergy/AdvReac Type Severity Reaction Status Date / Time alendronate sodium AdvReac Intermediate Gastrointestinal Verified 06/06/24 14:18 Upset mirtazapine AdvReac Intermediate bad dreams Verified 06/06/24 14:18 trazodone AdvReac Intermediate Dizziness Verified 06/06/24 14:18 codeine AdvReac Mild ITCHY Verified 06/06/24 14:18 sertraline AdvReac Mild fatigue Verified 06/06/24 14:18 Review of Systems Review of Systems ROS Unobtainable: All systems reviewed & are unremarkable except as noted in HPI and below Patient History Medical History Ulcer of left ankle Chronic diastolic (congestive) heart failure Menopausal syndrome Osteopenia Chronic anticoagulation Generalized anxiety disorder Acquired hypothyroidism Mixed hyperlipidemia Essential hypertension Paroxysmal atrial fibrillation Insomnia Rheumatoid arthritis Surgical History H/O: hysterectomy Family History Father Dementia Mother Dementia Atrial fibrillation Social History details: 2013; sister in 04/2023, nephew moving up household members: family Smoking Status: Former smoker alcohol intake: current Smoking Status: Former smoker alcohol intake frequency: holidays/special occasions only Exam Narrative Exam Narrative: GENERAL: Alert and oriented x three, thin elderly female in mild distress HEENT: Head normocephalic, atraumatic, EOMI, pupils reactive, face symmetric, moist mucous membranes NECK: Supple, full range of motion CARDIOVASCULAR: Regular rate and rhythm without murmurs, rubs or gallops. No JVD. No edema bilateral lower extremities. RESPIRATORY: Breath sounds equal bilaterally, no wheezes rales or rhonchi. No tachypnea or accessory muscle use. Speaks in full sentences. Lying back on the bed without issue. ABDOMEN: Soft, nontender. Normoactive bowel sounds all 4 quadrants. No guarding or rebound, rigidity, no mass : No CVA tenderness EXTREMITIES: Normal range of motion, no clubbing or edema. Neurovascularly intact NEUROLOGICAL: Cranial nerves II through XII grossly intact. Moving all extremities SKIN: Warm, dry, no petechiae, no rashes or lesions. Initial Vital Signs Initial Vital Signs: Vital Signs Temperature 97.4 F L 06/06/24 14:12 Pulse Rate 73 06/06/24 14:12 Respiratory Rate 20 06/06/24 14:12 Blood Pressure 144/67 H 06/06/24 14:12 Pulse Oximetry 92 06/06/24 14:12 Oxygen Delivery Method Room Air 06/06/24 14:12 Course Orders Ordered: ED Orders 06/06/24 14:25 Complete Blood Count AUTO DIFF Stat Comprehensive Metabolic Panel Stat Lipase Stat NT-proBNP (BNP-Adult 18+) Stat Troponin & CK Cardiac Panel Stat 06/06/24 15:04 XR chest 1V Stat EKG-12 Lead Stat 06/06/24 15:19 Covid-19 + FLU A/B + RSV - PCR Stat 06/06/24 15:49 CT chest w con Stat Remdesivir 200 mg/ Sodium (Chloride) 250 mls @ 250 mls/hr IV NOW ONE Stop: 06/06/24 18:43 Discontinued Medications Dexamethasone (Dexamethasone 10 Mg/Ml Vial) 6 mg IV NOW ONE Stop: 06/06/24 17:44 Furosemide (Furosemide 40 Mg/4 Ml Vial) 40 mg IV NOW ONE Stop: 06/06/24 15:50 Last Admin: 06/06/24 16:22 Dose: 40 mg Documented By: JAVON Vital Signs Vital signs: Vital Signs - 8 hr 06/06/24 14:12 06/06/24 14:21 06/06/24 14:22 Temperature 97.4 F L Pulse Rate 73 71 68 Respiratory Rate 20 Blood Pressure 144/67 H Pulse Oximetry 92 94 92 Oxygen Delivery Method Room Air Oxygen Flow Rate 06/06/24 14:22 06/06/24 14:30 06/06/24 14:30 Temperature Pulse Rate 69 Respiratory Rate Blood Pressure 142/67 H 127/61 Pulse Oximetry 97 Oxygen Delivery Method Oxygen Flow Rate 06/06/24 15:00 06/06/24 15:00 06/06/24 15:30 Temperature Pulse Rate 68 Respiratory Rate Blood Pressure 136/60 122/66 Pulse Oximetry 96 Oxygen Delivery Method Oxygen Flow Rate 06/06/24 15:30 06/06/24 16:00 06/06/24 16:00 Temperature Pulse Rate 68 70 Respiratory Rate Blood Pressure 116/56 L Pulse Oximetry 94 94 Oxygen Delivery Method Oxygen Flow Rate 06/06/24 16:30 06/06/24 16:30 06/06/24 17:00 Temperature Pulse Rate 69 71 Respiratory Rate 30 H Blood Pressure 121/63 Pulse Oximetry 94 86 L Oxygen Delivery Method Room Air Oxygen Flow Rate 06/06/24 17:02 Temperature Pulse Rate Respiratory Rate 28 H Blood Pressure Pulse Oximetry 94 Oxygen Delivery Method Nasal Cannula Oxygen Flow Rate 3 MDM - SOB/Dyspnea Lab Data 06/06/24 14:25 06/06/24 14:25 Labs: Lab Results 06/06/24 06/06/24 Range/Units 14:25 15:19 WBC 5.8 (4.5-11.0) X10^3/uL RBC 3.96 L (4.0-5.2) X10^6/uL Hgb 13.0 (12.0-16.0) g/dL Hct 38.5 (36-46) % MCV 97.1 (80-100) fL MCH 32.8 (26-34) PG MCHC 33.8 (30-36) % RDW 15.1 H (11.6-14.8) % Plt Count 324 (150-400) X10^3/uL Neut % (Auto) 74.1 (50-75) % Lymph % (Auto) 11.5 L (25-40) % [place] % (Auto) 11.5 (3-14) % Eos % (Auto) 2.1 (2-4) % Baso % (Auto) 0.8 (0-2) % Neut # (Auto) 4300 (7149-7582) /uL Lymph # (Auto) 700 L (4183-5877) /uL [place] # (Auto) 700 (0-900) /uL Eos # (Auto) 100 (0-450) /uL Baso # (Auto) 0 (0-100) /uL Sodium 134 L (137-145) mmol/L Potassium 3.7 (3.4-5.1) mmol/L Chloride 101 (98-107) mmol/L Carbon Dioxide 28 (22-32) mmol/L BUN 18 H (7-17) mg/dL Creatinine 0.61 (0.52-1.04) mg/dL Estimated GFR > 60 (>60) mL/min BUN/Creatinine Ratio 29.5 H (6-22) Glucose 111 H (80-110) mg/dL Calcium 9.1 (8.4-10.2) mg/dL Total Bilirubin 0.4 (0.2-1.3) mg/dL AST 55 H (14-36) IU/L ALT 25 (<35) IU/L Alkaline Phosphatase 102 (38-126) U/L Total Creatine Kinase 74 (30-135) U/L Troponin I < 0.012 (0.01-0.034) ng/mL NT-Pro-B Natriuret Pep 808 H (<450) pg/mL Total Protein 6.8 (6.3-8.2) g/dL Albumin 3.8 (3.5-5.0) g/dL Globulin 3.0 (1.7-4.1) g/dL Albumin/Globulin Ratio 1.3 (1.0-2.8) Lipase 110 (23-300) U/L SARS-CoV-2 (PCR) Positive H (Negative) Influenza A (RT-PCR) Flu a negative (NEGATIVE) Influenza B (RT-PCR) Flu b negative (NEGATIVE) RSV (PCR) Negative (Negative) ECG Data Attestation: I personally reviewed and interpreted this ECG as follows: Prior ECG tracings: available for review Interpretation: Sinus rhythm first-degree AV block nonspecific change rate of 67 MS 218 QRS of 90 QTC of 439 patient has prior from 10/19/[address] changes appreciated. MDM Narrative Medical decision making narrative: Labs show white count of 5.8 hemoglobin of 13 platelets of 324. Electrolytes are 134 BUN 18, creatinine 0.61 with a glucose of 111 AST slightly elevated at 55 but it has been persistently slightly elevated on prior labs bilirubin ALT and alk-phos are normal with a normal lipase troponins less than 0.012 BNP is 808 was and 76 in September of 2022 but prior to that was as high as 1150. Patient does not appear particularly fluid overloaded patient's chest x-ray has not improved but not significantly worsened on prelim review Patient did have a chest x-ray on 05/29/2024 right greater than left perihilar and lower lung opacities likely infectious patient was treated with doxycycline and cefdinir for 10 days. CXR today shows Luca prominent interstitium could represent atypical infection prior opacities less prominent no pleural effusions. Patient's swab is positive for COVID, patient had negative COVID on 05/29/2024. Patient became hypoxic with ambulation, placed on 1-[address] chest shows moderate diffuse ground-glass opacities in the lung could be infectious/inflammatory no dense consolidations no focal pulmonary nodules numerous small micronodules granuloma seen attention on follow-up. Patient improved with O2. Discussed with patient she was agreeable to remdesivir dexamethasone spoke with Dr. Huang hospitalist who accepts for inpatient for acute hypoxic respiratory failure and COVID-19 infection. Discharge Plan Departure Patient Disposition: Admitted As Inpatient Clinical Impression: COVID-19 virus infection, Acute hypoxic respiratory failure Admit Date/Time: 06/06/24 17:44 Admit Provider: Aaron Huang
--- NOTE | 2024-06-06 15:04 | DI.RAD.S_ITS ---
PROCEDURE: XR CHEST 1V INDICATIONS: sob x 1month TECHNIQUE: One view of the chest was acquired. COMPARISON: [facility], CR, XR CHEST 2V, 05/29/2024, 10:07. [facility], CR, XR CHEST 1V, 10/19/2022, 9:21. FINDINGS: Surgical changes and devices: None. Lungs and pleura: Mildly prominent interstitium. Opacities are slightly less apparent than prior imaging. No pleural effusions. Mediastinum: Unchanged cardiomediastinal contours. Bones and chest wall: Degenerative changes. IMPRESSION: Mildly prominent interstitium could represent atypical infection. Prior opacities are slightly less prominent. No pleural effusions. Dictated by: Dez Kent M.D. on 06/06/2024 at 15:02 Approved by: Dez Kent M.D. on 06/06/2024 at 15:02
[2024-06-06 15:11] LABS: Add Manual Diff / Slide Review NO; Basophils Absolute Auto 0 /uL (0-100); Basophils Percent Auto 0.8 % (0-2); Eosinophils Absolute Auto 100 /uL (0-450); Eosinophils Percent Auto 2.1 % (2-4); Hematocrit 38.5 % (36-46); Lymphocytes Absolute Auto 700 /uL (1100-4500); Lymphocytes Percent Auto 11.5 % (25-40); Mean Corpuscular HGB Conc 33.8 % (30-36); Mean Corpuscular Hemoglobin 32.8 PG (26-34); Mean Corpuscular Volume 97.1 fL (80-100); Monocytes Absolute Auto 700 /uL (0-900); Monocytes Percent Auto 11.5 % (3-14); Neutrophils Absolute Auto 4300 /uL (1500-7000); Neutrophils Percent Auto 74.1 % (50-75); Platelet Count 324 X10^3/uL (150-400); Red Blood Cell Count 3.96 X10^6/uL (4.0-5.2); Red Cell Distribution Width 15.1 % (11.6-14.8); White Blood Cell Count 5.8 X10^3/uL (4.5-11.0)
--- NOTE | 2024-06-06 15:14 | PC.NURSE ---
Provider ordered EKG at 1504. Tech performing EKG at 1515. Charge Aware.
[2024-06-06 15:20] LABS: Alanine Aminotransferase 25 IU/L (<35); Albumin 3.8 g/dL (3.5-5.0); Albumin Globulin Ratio 1.3 (1.0-2.8); Alkaline Phosphatase 102 U/L (38-126); Aspartate Aminotransferase 55 IU/L (14-36); BUN Creatinine Ratio 29.5 (6-22); Bilirubin Total 0.4 mg/dL (0.2-1.3); Blood Urea Nitrogen 18 mg/dL (7-17); Calcium 9.1 mg/dL (8.4-10.2); Carbon Dioxide 28 mmol/L (22-32); Chloride 101 mmol/L (98-107); Creatine Kinase 74 U/L (30-135); Estimated Glomerular Filt Rate > 60 mL/min (>60); Glucose 111 mg/dL (80-110); HEMOLYSIS < 15 (0-50); Lipase 110 U/L (23-300); Potassium 3.7 mmol/L (3.4-5.1); Sodium 134 mmol/L (137-145); Total Protein 6.8 g/dL (6.3-8.2)
--- NOTE | 2024-06-06 15:22 | EKG_ITS ---
[facility] [address] [place] [address] Test Date: 2024-06-06 Pat Name: Alyson Rae Department: [facility] Room: Gender: Female Pharmaceutical Officer: : 1940 Requested By: Order Number: [id number] Reading MD: Bony Cueto MD Measurements Intervals [place] Rate: 67 P: 41 MA: 218 QRS: 44 QRSD: 90 T: 48 QT: 416 QTc: 439 Interpretive Statements Sinus rhythm with 1st degree AV block Nonspecific ST abnormality Electronically Signed On 06-07-2024 8:02:47 PST by Bony Cueto MD
[2024-06-06 15:30] LABS: NT-proBNP (BNP-Adult 18+) 808 pg/mL (<450)
[2024-06-06 15:32] LABS: Troponin I < 0.012 ng/mL (0.01-0.034)
--- NOTE | 2024-06-06 15:49 | DI.CT.S_ITS ---
PROCEDURE: CT CHEST W CON INDICATIONS: sob x 1 month, ? pna vs other TECHNIQUE: After the administration of intravenous contrast, 5 mm thick sections acquired from the pulmonary apices to the posterior costophrenic angles. 1 mm axial lung, 5 mm thick coronal and sagittal reformats and 7 mm axial MIP were acquired. For radiation dose reduction, the following was used: automated exposure control, adjustment of mA and/or kV according to patient size. COMPARISON: [facility], CR, XR CHEST 1V, 06/06/2024, 15:15. FINDINGS: Image quality: Diagnostic Lungs and pleura: Moderate diffuse ground-glass opacities. Scattered areas of scarring particularly at the lung apices. No drainable pleural effusions. No dense consolidation. No overtly suspicious focal pulmonary nodule. Numerous small micro nodules and granulomas are seen, attention on follow-up. Mediastinum, heart, and esophagus: Unremarkable esophagus. Heart size is at the upper limit of normal. No pathologic lymph nodes by size criteria. Chest wall and thyroid: Small thyroid nodule measuring up to 1 cm with calcification not meeting consensus guidelines for further imaging Chest wall is unremarkable. Upper abdomen: Possible mild wall thickening of the stomach partially seen. Bones: Degenerative changes. IMPRESSION: Moderate diffuse ground-glass opacities in the lungs, which may be infectious/inflammatory. Consider surveillance chest CT to ensure resolution. If there are PFT abnormalities or clinical suspicious for interstitial disease, high-resolution protocol is suggested Other findings above. Dictated by: Dez Kent M.D. on 06/06/2024 at 16:31 Approved by: Dez Kent M.D. on 06/06/2024 at 16:35
[2024-06-06 16:10] LABS: Influenza A - CEPHEID Flu A NEGATIVE (NEGATIVE); Influenza B - CEPHEID Flu B NEGATIVE (NEGATIVE); Respiratory Syncytial Virus Negative (Negative)
[2024-06-06 16:13] LABS: COVID-19 CEPHEID 4-PLEX PCR POSITIVE (Negative)
[2024-06-06] MEDS: FUROSEMIDE 40 MG/4 ML VIAL IV (16:22)
--- NOTE | 2024-06-06 17:21 | PC.NURSE ---
Pt returned from CT at 1658, ambulated to restroom, returned from restroom SOB w/ exertion, 86% RA, labored breathing, placed on 3L O2, physician advised. Currently weaned off of O2 and 91% RA.
--- NOTE | 2024-06-06 17:48 | P.HP_ITS ---
History of Present Illness History of Present Illness Date Patient Seen: 06/06/24 Chief complaint: diff breathing Narrative: The patient was an 84-year-old female who presented to the emergency department with progressive shortness a breath which she states has been ongoing for over a month. She was a chronic history of AFib on apixaban, hypertension, rheumatoid arthritis, dyslipidemia, and hypothyroidism. She was on chronic immunosuppression with methotrexate. In the ED she was found to be COVID positive. She had been treated for pneumonia recently with doxycycline and cefdinir for 10 days. She has had intermittent fevers. She has also had mild rhinorrhea but no productive cough. In the emergency department imaging was consistent with pulmonary infiltrates and she was hypoxemic and required 3 L of oxygen. She does not take oxygen at home. She also does note some mild weakness. Her message to me is that she was had progressive shortness a breath and weakness really for a month now. She was not had prominent URI symptoms in her last COVID test was back in March. She was not had prominent rhinorrhea or cough. She was said to require 3 L of oxygen, when I saw her in the ER she was ED course: Oxygen was given for hypoxemia, remdesivir and dexamethasone were given after discussions with the patient and being sure that liver and renal functions were okay. [facility] Medical History Ulcer of left ankle Chronic diastolic (congestive) heart failure Menopausal syndrome Osteopenia Chronic anticoagulation Generalized anxiety disorder Acquired hypothyroidism Mixed hyperlipidemia Essential hypertension Paroxysmal atrial fibrillation Insomnia Rheumatoid arthritis Surgical History H/O: hysterectomy Family History Father Dementia Mother Dementia Atrial fibrillation Social History details: 2013; sister in 04/2023, nephew moving up household members: family Smoking Status: Former smoker alcohol intake: current Meds Home Medications and Allergies Home Medications Medication Instructions Recorded Confirmed Type clobetasol 0.05 % topical ointment 1 g topical DAILY PRN 08/31/21 05/29/24 History eplerenone 25 mg tablet 25 mg PO DAILY 09/02/22 05/29/24 History furosemide 20 mg tablet 20 mg PO DAILY PRN edema 09/02/22 05/29/24 History methotrexate sodium 2.5 mg tablet 10 mg PO QWEEK 09/02/22 05/29/24 History flecainide 100 mg tablet 100 mg PO Q12H #60 tabs 10/15/22 05/29/24 Rx albuterol sulfate 90 mcg/actuation 2 puff inhalation Q6H PRN 10/31/22 05/29/24 Rx aerosol inhaler shortness of breath or wheezing #8.5 grams apixaban 5 mg tablet (Eliquis) 5 mg PO BID #180 tabs 04/11/23 05/29/24 Rx metoprolol succinate 50 mg 50 mg PO BID #180 tabs 07/02/23 05/29/24 Rx tablet,extended release 24 hr tramadol 50 mg tablet 50 mg PO BID PRN pain #180 tabs 11/18/23 05/29/24 Rx rosuvastatin 10 mg tablet 10 mg PO DAILY #90 tabs 01/05/24 05/29/24 Rx liothyronine 5 mcg tablet 5 mcg PO DAILY #90 tabs 05/17/24 05/29/24 Rx cefdinir 300 mg capsule 300 mg PO BID #10 caps 05/31/24 Rx doxycycline hyclate 100 mg capsule 100 mg PO BID #10 caps 05/31/24 Rx Allergies Allergy/AdvReac Type Severity Reaction Status Date / Time alendronate sodium AdvReac Intermediate Gastrointestinal Verified 06/06/24 14:18 Upset mirtazapine AdvReac Intermediate bad dreams Verified 06/06/24 14:18 trazodone AdvReac Intermediate Dizziness Verified 06/06/24 14:18 codeine AdvReac Mild ITCHY Verified 06/06/24 14:18 sertraline AdvReac Mild fatigue Verified 06/06/24 14:18 Review of Systems Review of Systems Narrative: All else reviewed and otherwise unremarkable except as noted in the history and physical. Exam Vital Signs (past 8 hours): - 06/06/24 14:12 06/06/24 14:21 06/06/24 14:22 Temperature 97.4 F L Pulse Rate 73 71 68 Respiratory Rate 20 Blood Pressure 144/67 H Pulse Oximetry 92 94 92 Oxygen Delivery Method Room Air Oxygen Flow Rate 06/06/24 14:22 06/06/24 14:30 06/06/24 14:30 Temperature Pulse Rate 69 Respiratory Rate Blood Pressure 142/67 H 127/61 Pulse Oximetry 97 Oxygen Delivery Method Oxygen Flow Rate 06/06/24 15:00 06/06/24 15:00 06/06/24 15:30 Temperature Pulse Rate 68 Respiratory Rate Blood Pressure 136/60 122/66 Pulse Oximetry 96 Oxygen Delivery Method Oxygen Flow Rate 06/06/24 15:30 06/06/24 16:00 06/06/24 16:00 Temperature Pulse Rate 68 70 Respiratory Rate Blood Pressure 116/56 L Pulse Oximetry 94 94 Oxygen Delivery Method Oxygen Flow Rate 06/06/24 16:30 06/06/24 16:30 06/06/24 17:00 Temperature Pulse Rate 69 71 Respiratory Rate 30 H Blood Pressure 121/63 Pulse Oximetry 94 86 L Oxygen Delivery Method Room Air Oxygen Flow Rate 06/06/24 17:02 Temperature Pulse Rate Respiratory Rate 28 H Blood Pressure Pulse Oximetry 94 Oxygen Delivery Method Nasal Cannula Oxygen Flow Rate 3 Oxygen Delivery Method Nasal Cannula Oxygen Flow Rate 3 Narrative Exam Narrative: NAD, alert and oriented, fluent speech, calm. On 3 L of oxygen. Normocephalic skull, EOMI, anicteric sclera, symmetric pupils. Oropharynx unremarkable, no droop. Neck supple, midline trachea, no adenopathy. Lungs clear, normal rate and effort. Heart regular, no murmur gallop or rub. Abdomen is soft, non distended and non tender. Extremities are free of edema. Skin is free of rash or lesions. Joints are not swollen or deformed. Judgment appears to be normal. Objective ECG Impression: Sinus rhythm with 1st degree AV block Nonspecific ST abnormality Imaging Chest x-ray: My impression: Relatively clear appearing x-ray with unremarkable costophrenic sulci. Radiologist's impression: Mildly prominent interstitium could represent atypical infection. Prior opacities are slightly less prominent. No pleural effusions. CT scan - chest: Radiologist's impression: Moderate diffuse ground-glass opacities in the lungs, which may be infectious/inflammatory. Consider surveillance chest CT to ensure resolution. If there are PFT abnormalities or clinical suspicious for interstitial disease, high-resolution protocol is suggested Other findings above. Labs 06/06/24 14:25 06/06/24 14:25 Labs: Laboratory Results - last 24 hr 01/05/25 01/05/25 14:25 15:19 WBC 5.8 RBC 3.96 L Hgb 13.0 Hct 38.5 MCV 97.1 MCH 32.8 MCHC 33.8 RDW 15.1 H Plt Count 324 Neut % (Auto) 74.1 Lymph % (Auto) 11.5 L [place] % (Auto) 11.5 Eos % (Auto) 2.1 Baso % (Auto) 0.8 Neut # (Auto) 4300 Lymph # (Auto) 700 L [place] # (Auto) 700 Eos # (Auto) 100 Baso # (Auto) 0 Sodium 134 L Potassium 3.7 Chloride 101 Carbon Dioxide 28 BUN 18 H Creatinine 0.61 Estimated GFR > 60 BUN/Creatinine Ratio 29.5 H Glucose 111 H Calcium 9.1 Total Bilirubin 0.4 AST 55 H ALT 25 Alkaline Phosphatase 102 Total Creatine Kinase 74 Troponin I < 0.012 NT-Pro-B Natriuret Pep 808 H Total Protein 6.8 Albumin 3.8 Globulin 3.0 Albumin/Globulin Ratio 1.3 Lipase 110 SARS-CoV-2 (PCR) Positive H Influenza A (RT-PCR) Flu a negative Influenza B (RT-PCR) Flu b negative RSV (PCR) Negative Assessment & Plan Assessment & Plan narrative: 1. COVID pneumonia, present on admission and active. 2. Acute hypoxemic respiratory failure, present on admission and active. 3. Rheumatoid arthritis on chronic methotrexate and immunosuppressed, present on admission and active. 4. Hypertension, present on admission and active. 5. HLD, present on admission and active. 6. Hypothyroidism, present on admission and active. PLAN: The patient will be treated for COVID with isolation precautions, remdesivir given normal liver and renal function, and dexamethasone given hypoxemia.? The patient we will be monitored and oxygen will be weaned as able. We will monitor liver and renal functions. Blood cultures will be obtained and followed We will monitor blood pressure resume blood pressure medications as able. Continue chronic Synthroid dosing. Full resuscitation She will require 2 midnights in the hospital, supports inpatient status. Her immunosuppression places her at high risk for adverse outcomes of COVID infection. Time-Based Coding :: 35 min spent with patient and on the chart (including review of chart, obtaining history, exam, reviewing outside data, placing orders, documenting exam and treatment plan, and counseling patient) on 06/06. Quality MIPS - Admit I confirm the patient?s Advance Care Plan is present, Code status is documented, Surrogate decision maker is in patient?s record [If Yes, STOP here]: Yes MIPS - Meds 'Current medications' to include all prescriptions, [id number] products, herbals, cannabis/cannabidiol products, and vitamin/mineral/dietary (nutritional) supplements. I have utilized all available resources to obtain, update, or review the patient?s current medications. [If Yes, STOP here]: Yes
[2024-06-06] MEDS: DEXAMETHASONE 10 MG/ML VIAL 6 MG IV (17:54)
--- NOTE | 2024-06-06 18:01 | PC.NURSE ---
In house pharm unavailable, Coordinator called @ [phone] re: Remdesivir, awaiting return call.
[2024-06-06] MEDS: REMDESIVIR 200 MG in SODIUM CHLORIDE 0.9% 250 ML 250 MG IV (20:46)
[2024-06-06] MEDS: APIXABAN 5 MG TABLET PO (20:47)
[2024-06-07] VITALS (8 sets, daily range): BP systolic 99–140; BP diastolic 60–74; PULSE 58–71; RESP 15–19; TEMP 35.9–37.3; O2SAT 91–98
[2024-06-07] MEDS: ACETAMINOPHEN 325 MG TABLET 650 MG PO ×2 (00:10→20:06)
[2024-06-07 05:17] LABS: Add Manual Diff / Slide Review NO; Basophils Absolute Auto 0 /uL (0-100); Basophils Percent Auto 0.2 % (0-2); Eosinophils Absolute Auto 0 /uL (0-450); Eosinophils Percent Auto 0.1 % (2-4); Hematocrit 37.2 % (36-46); Hemoglobin 12.6 g/dL (12.0-16.0); Lymphocytes Absolute Auto 600 /uL (1100-4500); Lymphocytes Percent Auto 16.6 % (25-40); Mean Corpuscular Hemoglobin 32.8 PG (26-34); Mean Corpuscular Volume 96.5 fL (80-100); Monocytes Absolute Auto 200 /uL (0-900); Neutrophils Absolute Auto 3100 /uL (1500-7000); Neutrophils Percent Auto 79.1 % (50-75); Platelet Count 318 X10^3/uL (150-400); Red Blood Cell Count 3.86 X10^6/uL (4.0-5.2); Red Cell Distribution Width 14.9 % (11.6-14.8); White Blood Cell Count 3.9 X10^3/uL (4.5-11.0)
[2024-06-07 05:29] LABS: BUN Creatinine Ratio 40.4 (6-22); Blood Urea Nitrogen 23 mg/dL (7-17); Carbon Dioxide 29 mmol/L (22-32); Chloride 101 mmol/L (98-107); Estimated Glomerular Filt Rate > 60 mL/min (>60); Glucose 141 mg/dL (80-110); HEMOLYSIS < 15 (0-50); Potassium 3.6 mmol/L (3.4-5.1); Sodium 135 mmol/L (137-145)
[2024-06-07] MEDS: APIXABAN 5 MG TABLET PO ×2 (09:11→22:21)
--- NOTE | 2024-06-07 09:42 | PC.NURSE ---
Patient is alert and oriented x4, she denies any discomfort and lung sounds are clear upon auscultation. No further needs at this time.
--- NOTE | 2024-06-07 11:32 | CM.DANOTE ---
B DCP Assessment Note Pt is a 84yo F here with resp failure/COVID. PCP [facility] Payer Medicare and [employer] NURSING COORDINATOR reviewed EMR. per chart, pt now on room air, able to ambulate with nursing staff. per chart, pt lives in [place] with family (unspecified). pt emergency contact is abhijit Mendoza ([phone]), no POA paperwork but plans to make Reji POA. per provider in morning rounds, potential DC later today. NURSING COORDINATOR did not enter room due to pos COVID diagnosis. Per RN report, no obvious CM needs. RN KINDLY agreed to give pt blank copy of POA paperwork for future use. P: dc home when medically stable. no identified barriers to safe dc home at this time. CM team will continue to follow as needed. Will alert TCM to pt's dc. RACHAEL Langston Discharge Planning/Care Management CM Discharge Assessment Start: 06/07/24 11:28 Freq: Status: Active Protocol: Document 06/07/24 11:28 (Rec: 06/07/24 11:31 [id number]) Discharge Planning Assessment Assigned Cut Off Operator Scorer RACHAEL Khoury DPOA/Assigned Designee Name abhijit Mendoza Advance Directives? No: provided POA paperwork Advance Directives on File No History Provided By Patient Prior Living Arrangements House Household Members family Is patient alert and oriented? Yes Barriers to Discharge No Discharge Plan Home Transportation Arrangement Self Referrals Initiated None needed Whiteboard Updated in Patient Room with No name and ext. # of Cut Off Operator Scorer Comment NURSING COORDINATOR did not enter room due to pos COVID diagnosis Review Status In Process Please Provide Date Initial DC 06/07/24 Assessment Was Performed Next Review Type Continued Stay Review
--- NOTE | 2024-06-07 13:10 | DI.ECHO.S_ITS ---
[facility] : : [id number] : [place] : : [id number] : : Phone: [phone] Echocardiogram Report + + :Name: GIL GARCIA Study Date: 06/07/2024 Height: 63 in : :[facility] ReadingLocation: Weight: 125 lb : : Gender: Female BSA: 1.6 m2 : :: 1940 Age: 84 yrs BP: 121/72 mmHg: :Reason For Study: SHORTNESS OF BREATH : :Ordering Physician: LEIA, : :ARMINDA KATHLEEN Performed By: Gamal Soares : :Referring: ARMINDA DUPREE : + + Interpretation Summary The left ventricle is normal in size. The ejection fraction is estimated to be 60-65%. There are no focal wall motion abnormalities. Diastolic parameters suggest a relaxation abnormality of the left ventricle, consistent with probable normal filling pressures. The right ventricle is normal in size and function. The right ventricular systolic pressure is estimated to be at least 42 mmHg based on an estimated right atrial pressure of 15 mm Hg. Compared to the prior echo exam, there has been an increase in the severity of pulmonary hypertension. The left atrial size is normal. There is no significant valvular heart disease. The aortic root is normal size. There is a small pericardial effusion noted. Pericardial effusion appears to be slightly larger in size comparing to echo study on 07/07/21. There are no echocardiographic indications of cardiac tamponade. Procedure: A two-dimensional transthoracic echocardiogram with color flow and Doppler was performed. The study quality was technically adequate. Comparison is made with the echocardiogram of 02/14/2022. The patient was in normal sinus rhythm during the exam. Left Ventricle: The left ventricle is normal in size. There is normal left ventricular wall thickness. There is no ventricular septal defect visualized. The ejection fraction is estimated to be 60-65%. There are no focal wall motion abnormalities. Diastolic parameters suggest a relaxation abnormality of the left ventricle, consistent with probable normal filling pressures. Right Ventricle: The right ventricle is normal in size and function. Atria: The left atrial size is normal. The right atrium is mildly dilated. There is no Doppler evidence for an atrial septal defect. Mitral Valve: The mitral valve leaflets appear normal. There is no evidence of stenosis, fluttering, or prolapse. There is trace mitral regurgitation. Aortic Valve: The aortic valve is trileaflet. The aortic valve is mildly calcified. The aortic valve opens well. There is trace aortic regurgitation. Tricuspid Valve: The tricuspid valve leaflets are thin and pliable. There is mild tricuspid regurgitation. The right ventricular systolic pressure is estimated to be at least 42 mmHg based on an estimated right atrial pressure of 15 mm Hg. Compared to the prior echo exam, there has been an increase in the severity of pulmonary hypertension. Pulmonic Valve: The pulmonic valve leaflets appear thickened, but open well. There is trace pulmonic regurgitation. There is no significant valvular heart disease. Great Vessels: The aortic root is normal size. The dimensions of the ascending aorta are normal. The pulmonary artery is normal size. The IVC is dilated (diameter is greater than 2.1 cm) and it collapses less than 50% with a sniff. This suggests a high right atrial pressure of 15 mm Hg. Pericardium/ Pleura There is a small pericardial effusion noted. There are no echocardiographic indications of cardiac tamponade. There is no pleural effusion. MMode/2D Measurements & Calculations LVIDd: 3.6 cm LVOT diam: 1.9 cm LVIDs: 2.5 cm Ao root diam: 3.4 cm FS: 30.1 % asc Aorta Diam: 3.5 cm EPSS: 0.55 cm IVSd: 0.76 cm LVPWd: 0.86 cm LV barone. diameter/BSA (cm/m^2): 2.3 LV sys. diameter/BSA (cm/m^2): 1.6 LA A2 area: 17.1 cm2 RA long axis: 4.2 cm LA A4 area: 11.1 cm2 RA area: 15.7 cm2 LA length (vol): 4.1 cm RA vol: 50.5 ml LA vol: 39.6 ml RA : 31.9 ml/m2 LA vol index: 25.0 ml/m2 IVC diam: 3.1 cm RVD1 (basal): 3.5 cm RVD2 (mid): 2.3 cm TAPSE: 3.1 cm Doppler Measurements & Calculations Ao V2 max: 105.3 cm/sec LVOT Max Get: 72.1 cm/sec Ao V2 mean: 77.5 cm/sec LV V1 max P.1 mmHg Ao max P.4 mmHg LV V1 VTI: 17.3 cm Ao mean P.6 mmHg SANDRA(I,D): 2.1 cm2 Ao V2 VTI: 24.2 cm SANDRA(V,D): 2.0 cm2 sev ratio: 0.72 SANDRA indexed to BSA (cm^2/m^2): 1.3 MV E max get: 48.3 cm/sec TR max get: 261.8 cm/sec MV A max get: 62.8 cm/sec TR max P.4 mmHg MV E/A: 0.77 PA V2 max: 85.2 cm/sec Med Peak E' Get: 6.3 cm/sec PA V2 mean: 55.7 cm/sec E/E' med: 7.7 PA mean P.5 mmHg Lat Peak E' Get: 9.0 cm/sec PA pr(Accel): 25.9 mmHg E/E' lat: 5.4 E/e' average: 6.5 MV dec time: 0.23 sec SV(LVOT): 51.6 ml Reading Physician:08:41 AM
[2024-06-07] MEDS: METOPROLOL ER 50 MG TABLET PO ×2 (14:14→22:22)
[2024-06-07] MEDS: FLECAINIDE 100 MG TABLET PO ×2 (14:15→22:23)
[2024-06-07] MEDS: LIOTHYRONINE 5 MCG TABLET PO (14:15)
--- NOTE | 2024-06-07 14:58 | PT.IIE ---
Current Diagnoses COVID-19 (06/06/24) Surgical History (Last Reviewed 06/06/24 @ 17:50 by Aaron Huang MD) H/O: hysterectomy Medical History (Last Reviewed 06/06/24 @ 17:50 by Aaron Huang MD) Acquired hypothyroidism Chronic anticoagulation Chronic diastolic (congestive) heart failure Essential hypertension Generalized anxiety disorder Insomnia Menopausal syndrome Mixed hyperlipidemia Osteopenia Paroxysmal atrial fibrillation Rheumatoid arthritis Ulcer of left ankle Physical Therapy Inpatient Evaluation/Re-Eval M1 PT/OT-IP Prior Functional Status Start: 06/07/24 14:53 Freq: NEEDED Status: Active Protocol: Document 06/07/24 14:40 MB (Rec: 06/07/24 14:58 MB [id number]) Medical Review Prior Functional Status Medical History Reviewed Yes Diet/Fluid Consistency Regular Communication WNLs Mobility and Gait I Activities of Daily Living and IADL's I Social History Household Members family Living Arrangements House Number of Floors (Floors) One Floor Number of Stairs To Enter/Railing? 2 steps and B rail to enter Home Environment Standard Height Toilet,Walk in Shower Home Equipment Hand Held Shower,Grab Bars In Shower Employment Status Retired M2 PT-IP Current Condition Start: 06/07/24 14:53 Freq: NEEDED Status: Active Protocol: Document 06/07/24 14:40 MB (Rec: 06/07/24 14:58 MB [id number]) Physical Therapy Current Condition Current Condition Evaluation Date 06/07/24 Treatment Diagnosis COVID M3 PT-IP Subjective Start: 06/07/24 14:53 Freq: NEEDED Status: Active Protocol: Document 06/07/24 14:40 MB (Rec: 06/07/24 14:58 MB [id number]) Subjective Physical Therapy Visit Type Type Initial Evaluation Visit Start Time 14:40 Visit Stop Time 14:53 Number of DRIVER LICENSE EXAMINER Visits 0 Physical Therapy Visit Comments Patient Comments Pt is agreeable to PT. Therapy Pain Assessment Pain When Pain Assessed At Rest Pain Present Pain Present Denied Pain M4 PT-IP Mobility and Gait Start: 06/07/24 14:53 Freq: NEEDED Status: Active Protocol: Document 06/07/24 14:40 MB (Rec: 06/07/24 14:58 MB [id number]) PT-Bed Mobility Assessment Rolling Type of Rolling Roll to Left Level of Assist Standby Assistance Supine to Sit Supine to Sit Standby Assistance,Head of Bed Elevated,Bedrails Scooting Scooting to Edge of Bed Standby Assistance PT-Transfer Assessment Sit to and From Stand Sit to and from Stand Standby Assistance Equipment Transfer Assistive Device None Orthotic/Prosthetic Devices or Brace: No Transfers Transfer Destination Chair,Toilet Transfer Technique Ambulation Transfer Ability Level of Assist Standby Assistance Gait Assessment Gait Gait Assistance Required: Standby Assistance Distance (Feet) 20 Able to Maintain Weight Bearing Status Yes During Gait Assistive Devices Assistive Device None Orthotic/Prosthetic Devices or Brace: No Gait Deviations General Gait Pattern Flexed Trunk Comments Gait Comments MOSQUERA, rated 2/4 Dyspnea scale and O2 sats 92% and HR 72 BPM after short gait to toilet, urination, washing hands at sink and sitting up in chair PT-Balance Assessment Sitting Balance and Reactions Static Sitting Balance Ability Normal Dynamic Sitting Balance Ability Good Standing Balance and Reactions Static Standing Balance Ability Good Dynamic Standing Balance Ability Fair M5 PT-IP Objective Assessments Start: 06/07/24 14:53 Freq: NEEDED Status: Active Protocol: Document 06/07/24 14:40 MB (Rec: 06/07/24 14:58 MB [id number]) Orientation Orientation/Cognition Level of Alertness Alert Language Function Ability No Deficits Noted Safety Awareness Understands Safety Issues Memory Description No Deficits Noted Gross Range of Motion Upper Extremity ROM Assessment Within Functional Limits Lower Extremity ROM Assessment Within Functional Limits Strength Upper Extremity Strength Assessment Within Functional Limits Lower Extremity Strength Assessment Within Functional Limits M6 PT-IP Treatment Start: 06/07/24 14:53 Freq: NEEDED Status: Active Protocol: Document 06/07/24 14:40 MB (Rec: 06/07/24 14:58 MB [id number]) Physical Therapy Treatment Education Education Provided Safety M7 PT-IP Assessment and Plan Start: 06/07/24 14:53 Freq: NEEDED Status: Active Protocol: Document 06/07/24 14:40 MB (Rec: 06/07/24 14:58 MB [id number]) PT Summary Assessment and Plan Potential Rehabilitation Potential Good Status of Condition at Evaluation Evolving Summary Impairments Bed Mobility,Transfers,Gait, Activity Tolerance Progress Towards Goals Progressing Toward Goals Assessment Summary Pt is an 84 y/o female presenting with MOSQUERA and decreased activity tolerance, adm last date with COVID. She is SBA in room for activity. She lives in her home with niece/nephew support. Anticipate d/c home next date per pt. Goals Bed Mobility Goal Independent Transfer Goal Independent Gait Goal Independent Gait Distance 100 Other Goals Pt will ascend and descend 2 steps with 1-2 rails and mod I to allow safe home entrance. Days to Meet Goals 3 Frequency of Treatment Frequency Of Treatment Once a Day Treatment Plan Physical Therapy Treatment Plan Bed Mobility Training,Transfer Training,Gait Training, Therapeutic Exercise,Balance Retraining,Discharge Planning, Hot or Cold Pack,Neuromuscular Re-ed,Coordination Retraining ,Manual Therapy Recommendations To Nursing Amount of Assist Needed Standby Assistance Discharge Recommendations PT Discharge Recommendations Home with Assistance Transportation Needs at Discharge Private Vehicle
--- NOTE | 2024-06-07 19:25 | PM.PN.1 ---
Subjective Subjective Interval history: 84 year old female with COVID pneumonia and hypoxia on admission. Reports COVID multiple months ago, unclear if new infection though possible given recent negative testing. Also has progressive dyspnea on exertion. Ordered for TTE today, pending results. She is no longer on supplemental oxygen today. Exam Vital Signs (past 8 hours): - 06/07/24 12:00 06/07/24 16:00 Temperature 97.6 F 97.2 F L Pulse Rate 64 62 Respiratory Rate 17 18 Blood Pressure 121/72 131/69 Pulse Oximetry 93 93 Oxygen Flow Rate 0 0 Oxygen Delivery Method Room Air Oxygen Flow Rate 0 Narrative Exam Narrative: NAD, alert and oriented, fluent speech, calm. on room air. Normocephalic skull, EOMI, anicteric sclera, symmetric pupils. Oropharynx unremarkable, no droop. Neck supple, midline trachea, no adenopathy. Lungs clear, normal rate and effort. Heart regular, no murmur gallop or rub. Abdomen is soft, non distended and non tender. Extremities are free of edema. Skin is free of rash or lesions. Joints are not swollen or deformed. Judgment appears to be normal. Objective Labs 06/07/24 03:50 06/07/24 03:50 Labs: Laboratory Results - last 24 hr 06/07/24 03:50 WBC 3.9 L RBC 3.86 L Hgb 12.6 Hct 37.2 MCV 96.5 MCH 32.8 MCHC 34.0 RDW 14.9 H Plt Count 318 Neut % (Auto) 79.1 H Lymph % (Auto) 16.6 L Gates % (Auto) 4.0 Eos % (Auto) 0.1 L Baso % (Auto) 0.2 Neut # (Auto) 3100 Lymph # (Auto) 600 L [place] # (Auto) 200 Eos # (Auto) 0 Baso # (Auto) 0 Sodium 135 L Potassium 3.6 Chloride 101 Carbon Dioxide 29 BUN 23 H Creatinine 0.57 Estimated GFR > 60 BUN/Creatinine Ratio 40.4 H Glucose 141 H Calcium 9.0 PFSH Medical History Ulcer of left ankle Chronic diastolic (congestive) heart failure Menopausal syndrome Osteopenia Chronic anticoagulation Generalized anxiety disorder Acquired hypothyroidism Mixed hyperlipidemia Essential hypertension Paroxysmal atrial fibrillation Insomnia Rheumatoid arthritis Surgical History H/O: hysterectomy Family History Father Dementia Mother Dementia Atrial fibrillation Social History details: 2013; sister in 04/2023, nephew moving up household members: family Smoking Status: Former smoker alcohol intake: current Assessment & Plan Assessment & Plan narrative: 1. COVID pneumonia, present on admission and active. 2. Acute hypoxemic respiratory failure, present on admission and active. 3. Rheumatoid arthritis on chronic methotrexate and immunosuppressed, present on admission and active. 4. Hypertension, present on admission and active. 5. HLD, present on admission and active. 6. Hypothyroidism, present on admission and active. 7. Possible acute on chronic diastolic heart failure. PLAN: - labs appear unremarkable today with low normal sodium and low normal WBC at 3.9 consistent with COVID infection - chronic dyspnea possibly related to long covid, possible heart failure ordered TTE today, awaiting cardiology read. - another differential includes rheumatoid lung, though this is less likely. Will add ESR and CRP to labs tomorrow. - continue other home medications. - she does take prn furosemide at home, received dose of IV lasix, consider additional diuresis depending on symptoms and TTE results. Full resuscitation She will require 2 midnights in the hospital, supports inpatient status. Her immunosuppression places her at high risk for adverse outcomes of COVID infection. Discussed with case management, previous hospitalist on duty for additional history which contributed to the above assessment and plan. Extensively review outpatient records including cardiology notes from 09/2023. Time-Based Coding :: [TOTAL MINUTES] spent with patient and on the chart (including review of chart, obtaining history, exam, reviewing outside data, placing orders, documenting exam and treatment plan, and counseling patient) on [DATE].
[2024-06-08 03:00] VITALS: BP 116/70; PULSE 61; RESP 16; TEMP 36.4; O2SAT 93
[2024-06-08 05:39] LABS: Add Manual Diff / Slide Review NO; Basophils Absolute Auto 0 /uL (0-100); Basophils Percent Auto 0.4 % (0-2); Eosinophils Absolute Auto 300 /uL (0-450); Eosinophils Percent Auto 5.6 % (2-4); Hematocrit 37.6 % (36-46); Hemoglobin 12.8 g/dL (12.0-16.0); Lymphocytes Absolute Auto 1300 /uL (1100-4500); Lymphocytes Percent Auto 20.9 % (25-40); Mean Corpuscular Hemoglobin 32.5 PG (26-34); Mean Corpuscular Volume 95.5 fL (80-100); Monocytes Absolute Auto 600 /uL (0-900); Monocytes Percent Auto 10.1 % (3-14); Neutrophils Absolute Auto 3800 /uL (1500-7000); Platelet Count 324 X10^3/uL (150-400); Red Blood Cell Count 3.93 X10^6/uL (4.0-5.2); Red Cell Distribution Width 15.3 % (11.6-14.8); White Blood Cell Count 6.1 X10^3/uL (4.5-11.0)
[2024-06-08 05:49] LABS: BUN Creatinine Ratio 43.1 (6-22); Blood Urea Nitrogen 28 mg/dL (7-17); C-Reactive Protein Quant 1.5 mg/dL (<1.0); Calcium 8.7 mg/dL (8.4-10.2); Carbon Dioxide 30 mmol/L (22-32); Chloride 102 mmol/L (98-107); Estimated Glomerular Filt Rate > 60 mL/min (>60); Glucose 91 mg/dL (80-110); HEMOLYSIS < 15 (0-50); Potassium 3.4 mmol/L (3.4-5.1); Sodium 136 mmol/L (137-145)
[2024-06-08 06:55] LABS: Erythrocyte Sedimentation Rate 18 MM/HR (0-20)
[2024-06-08 07:00] VITALS: BP 117/71; PULSE 68; RESP 18; TEMP 36.5; O2SAT 95
--- NOTE | 2024-06-08 08:58 | P.DS_ITS ---
History of Present Illness History of Present Illness Date Patient Seen: 06/08/24 Time Patient Seen: 08:59 Chief complaint: diff breathing Narrative: The patient was an 84-year-old female who presented to the emergency department with progressive shortness a breath which she states has been ongoing for over a month. She was a chronic history of AFib on apixaban, hypertension, rheumatoid arthritis, dyslipidemia, and hypothyroidism. She was on chronic immunosuppression with methotrexate. In the ED she was found to be COVID positive. She had been treated for pneumonia recently with doxycycline and cefdinir for 10 days. She has had intermittent fevers. She has also had mild rhinorrhea but no productive cough. In the emergency department imaging was consistent with pulmonary infiltrates and she was hypoxemic and required 3 L of oxygen. She does not take oxygen at home. She also does note some mild weakness. Her message to me is that she was had progressive shortness a breath and weakness really for a month now. She was not had prominent URI symptoms in her last COVID test was back in March. She was not had prominent rhinorrhea or cough. She was said to require 3 L of oxygen, when I saw her in the ER she was ED course: Oxygen was given for hypoxemia, remdesivir and dexamethasone were given after discussions with the patient and being sure that liver and renal functions were okay. Discharge Providers Provider Date of admission: 06/06/24 17:44 Discharge Date: 06/08/24 Primary care physician: Juarez Villalpando MD Consults: 06/07/24 13:14 Consult to Physical Therapy Evaluate & Treat Comment: Physician Instructions: Evaluate and Treat Discharge provider: Grant Joseph DO Summary Hospital Course Discharge Diagnosis: 1. COVID pneumonia, present on admission and active. 2. Acute hypoxemic respiratory failure, present on admission and active. 3. Rheumatoid arthritis on chronic methotrexate and immunosuppressed, present on admission and active. 4. Hypertension, present on admission and active. 5. HLD, present on admission and active. 6. Hypothyroidism, present on admission and active. 7. Possible acute on chronic diastolic heart failure. Hospital Course: This is an 84-year-old female with a recent history of COVID pneumonia who was initially admitted with acute hypoxemic respiratory failure. Her hypoxia rapidly resolved after admission, and the patient reported chronic dyspnea on exertion since her initial diagnosis of COVID. Echocardiogram was performed which was unremarkable and showed no evidence of a possible cardiogenic cause. The patient did feel improved, and given resolution of her hypoxia she was discharged home. She was initially given steroids and remdesivir but these were stopped once her oxygen was no longer required. No other medication changes were recommended at the time of discharge. Other possible etiologies include long COVID, primary lung pathologies, or possibly immunologic given her history of rheumatoid arthritis, though this does not appear likely. Patient stated she would continue to follow-up with her primary care provider, I recommended possible pulmonary function testing and to consider pulmonary rehab as an outpatient for her continued dyspnea on exertion. Time Spent with Patient Time spent: Greater than 30 minutes Exam Vital Signs (past 8 hours): - 06/08/24 03:00 Temperature 97.6 F Pulse Rate 61 Respiratory Rate 16 Blood Pressure 116/70 Pulse Oximetry 93 Oxygen Delivery Method Room Air Oxygen Flow Rate 0 Narrative Exam Narrative: NAD, alert and oriented, fluent speech, calm. on room air. Normocephalic skull, EOMI, anicteric sclera, symmetric pupils. Oropharynx unremarkable, no droop. Neck supple, midline trachea, no adenopathy. Lungs clear, normal rate and effort. Heart regular, no murmur gallop or rub. Abdomen is soft, non distended and non tender. Extremities are free of edema. Skin is free of rash or lesions. Joints are not swollen or deformed. Judgment appears to be normal. Objective Labs 06/08/24 04:40 06/08/24 04:40 Labs: Laboratory Results - last 24 hr 06/08/24 04:40 WBC 6.1 D RBC 3.93 L Hgb 12.8 Hct 37.6 MCV 95.5 MCH 32.5 MCHC 34.0 RDW 15.3 H Plt Count 324 Neut % (Auto) 63.0 Lymph % (Auto) 20.9 L [place] % (Auto) 10.1 Eos % (Auto) 5.6 H Baso % (Auto) 0.4 Neut # (Auto) 3800 Lymph # (Auto) 1300 [place] # (Auto) 600 Eos # (Auto) 300 Baso # (Auto) 0 ESR 18 Sodium 136 L Potassium 3.4 Chloride 102 Carbon Dioxide 30 BUN 28 H Creatinine 0.65 Estimated GFR > 60 BUN/Creatinine Ratio 43.1 H Glucose 91 Calcium 8.7 C-Reactive Protein 1.5 H PFSH Medical History Ulcer of left ankle Chronic diastolic (congestive) heart failure Menopausal syndrome Osteopenia Chronic anticoagulation Generalized anxiety disorder Acquired hypothyroidism Mixed hyperlipidemia Essential hypertension Paroxysmal atrial fibrillation Insomnia Rheumatoid arthritis Surgical History H/O: hysterectomy Family History Father Dementia Mother Dementia Atrial fibrillation Social History details: 2013; sister in 04/2023, nephew moving up household members: family Smoking Status: Former smoker alcohol intake: current Discharge Plan Discharge Plan Patient Disposition: Home Provider Discharge Comment: You were admitted to the hospital with shortness of breath on exertion and low oxygen. Low oxygen now resolved. Ultrasound of your heart was unremarkable. Recommend continued follow up with primary care, consider pulmonary rehab after discharge, PFT and possible pulmonology referral as outpatient. Discharge orders & Medications Prescriptions: Continued albuterol sulfate 90 mcg/actuation HFA aerosol inhaler 2 puff inhalation Q6H PRN (Reason: shortness of breath or wheezing) Qty: 8.5 5RF Eliquis 5 mg tablet 5 mg PO BID Qty: 180 3RF metoprolol succinate 50 mg tablet extended release 24 hr 50 mg PO BID Qty: 180 3RF rosuvastatin 10 mg tablet 10 mg PO DAILY Qty: 90 3RF liothyronine 5 mcg tablet 5 mcg PO DAILY Qty: 90 3RF eplerenone 25 mg tablet 25 mg PO DAILY tramadol 50 mg tablet 50 mg PO BID PRN (Reason: pain) Qty: 180 1RF methotrexate sodium 2.5 mg tablet 10 mg PO QWEEK Patient Comments: 4 tables weekly flecainide 100 mg tablet 100 mg PO Q12H Qty: 60 0RF No Action furosemide 20 mg tablet 20 mg PO DAILY cholecalciferol (vitamin D3) 50 mcg (2,000 unit) capsule 50 mcg PO DAILY multivitamin Tablet 1 tab PO QAM acetaminophen 500 mg capsule 1,000 mg PO QPM PRN Follow up/Referrals: Juarez Villalpando MD [Primary Care Provider] - Visit Report/Discharge Packet Instructions: How to Prevent Falls, DI for Heart Failure Exacerbations, DI for COVID-19 (Suspected or Confirmed ), How to Care for Someone with COVID-19, COVID-19_ Can I Get It Again Stand Alone Forms: Patient Portal/API, Stroke Signs & Symptoms Discharge Data Primary Care Provider: Juarez Villalpando V
--- NOTE | 2024-06-08 09:01 | PT-IP ANOTE ---
Per hospitalist, pt is moving well and does not need to be seen by PT. Pt will d/c today.
[2024-06-08] MEDS: METOPROLOL ER 50 MG TABLET PO (09:11)
[2024-06-08] MEDS: APIXABAN 5 MG TABLET PO (09:11)
[2024-06-08] MEDS: LIOTHYRONINE 5 MCG TABLET PO (09:11)
[2024-06-08] MEDS: FLECAINIDE 100 MG TABLET PO (09:12)
--- NOTE | 2024-06-08 12:06 | CM.DPNOTE ---
DCP note OTR FLATBED DRIVER reviewed EMR Per provider in morning rounds, echo good. this is all likely tied to long COVID. dc home today. OTR FLATBED DRIVER messaged TCM team with updates. OTR FLATBED DRIVER did not meet with pt due to pos COVID diagnosis. Per RN, no obvious/anticipated DCP needs identified. RN confirms pt lives with nephewReji. P: dc home today with OP f/u recommended. nephew to transport. no identified barriers to safe dc home at this time. CM team will continue to follow as needed RACHAEL Langston
--- NOTE | 2024-06-08 13:40 | PC.NURSE ---
Discharge: Pt feels ready to d/c to home. RA sats are 92% or greater. Lungs diminished at bases, otherwise clear. Has an occ cough but no other cold sxs. Family here. Reviewed discharge packet. Discussed care and the cleaning involved with covid. She can get covid again. Reviewed heart failure teaching sheets. Questions answered. Pt d/c to home via auto with nephew.
== END 2024-06-08 13:43 | disposition home or self-care (01) | DRG 177 ==
LOC: ED 14:47 → AC 17:45
PROVIDERS: Internal Medicine; Admitting Provider Hospitalist; Emergency Provider Emergency Medicine; PCP Internal Medicine; Referring Provider Emergency Medicine; Visit Provider Hospitalist
DX: U07.1 COVID-19 (principal); I50.33 Acute on chronic diastolic (congestive) heart failure; J12.82 Pneumonia due to coronavirus disease 2019; J96.01 Acute respiratory failure with hypoxia; D84.821 Immunodeficiency due to drugs; I48.91 Unspecified atrial fibrillation; M06.9 Rheumatoid arthritis, unspecified; E78.5 Hyperlipidemia, unspecified; I11.0 Hypertensive heart disease with heart failure; E03.9 Hypothyroidism, unspecified; Z66 Do not resuscitate; Z87.891 Personal history of nicotine dependence; Z79.01 Long term (current) use of anticoagulants; Z79.631 Long term (current) use of antimetabolite agent
CPT/HCPCS: 0241U; 36415; 71045; 71260; 80048; 80053; 82550; 83690; 83880; 84484; 85025; 85651; 86140; 93005; 93010; 93306; 96365; 96375; 97162; 99285; J1100; J1940; Q9967

== ENCOUNTER → 2024-07-16 11:00 | Outpatient (CLI) | payer MEDICARE, SELFPAY ==
[2024-06-06 19:56] VITALS: BMI 22.1
[2024-07-16 12:05] LABS: Add Manual Diff / Slide Review NO; Basophils Absolute Auto 0 /uL (0-100); Basophils Percent Auto 0.7 % (0-2); Eosinophils Absolute Auto 400 /uL (0-450); Eosinophils Percent Auto 9.5 % (2-4); Hematocrit 38.5 % (36-46); Hemoglobin 12.9 g/dL (12.0-16.0); Lymphocytes Absolute Auto 900 /uL (1100-4500); Lymphocytes Percent Auto 22.6 % (25-40); Mean Corpuscular HGB Conc 33.5 % (30-36); Mean Corpuscular Hemoglobin 32.6 PG (26-34); Mean Corpuscular Volume 97.4 fL (80-100); Monocytes Absolute Auto 300 /uL (0-900); Monocytes Percent Auto 8.4 % (3-14); Neutrophils Absolute Auto 2300 /uL (1500-7000); Neutrophils Percent Auto 58.8 % (50-75); Platelet Count 237 X10^3/uL (150-400); Red Blood Cell Count 3.96 X10^6/uL (4.0-5.2); Red Cell Distribution Width 15.5 % (11.6-14.8); White Blood Cell Count 3.9 X10^3/uL (4.5-11.0)
[2024-07-16 12:40] LABS: Alanine Aminotransferase 17 IU/L (<35); Albumin 3.6 g/dL (3.5-5.0); Albumin Globulin Ratio 1.4 (1.0-2.8); Alkaline Phosphatase 72 U/L (38-126); Aspartate Aminotransferase 46 IU/L (14-36); BUN Creatinine Ratio 28.8 (6-22); Bilirubin Total 0.7 mg/dL (0.2-1.3); Blood Urea Nitrogen 21 mg/dL (7-17); Calcium 9.2 mg/dL (8.4-10.2); Carbon Dioxide 30 mmol/L (22-32); Chloride 103 mmol/L (98-107); Estimated Glomerular Filt Rate > 60 mL/min (>60); Globulin 2.6 g/dL (1.7-4.1); Glucose 81 mg/dL (80-110); HEMOLYSIS < 15 (0-50); Potassium 3.9 mmol/L (3.4-5.1); Sodium 136 mmol/L (137-145); Total Protein 6.2 g/dL (6.3-8.2)
== END ==
LOC: LAB 11:02
PROVIDERS: PCP Internal Medicine; Referring Provider Internal Medicine Rheumatology; Visit Provider Internal Medicine Rheumatology
DX: M06.09 Rheumatoid arthritis without rheumatoid factor, multiple sites (principal); Z51.81 Encounter for therapeutic drug level monitoring
CPT/HCPCS: 36415; 80053; 85025

== ENCOUNTER → 2024-09-07 10:37 | Outpatient (CLI) | payer MEDICARE, SELFPAY ==
[2024-06-06 19:56] VITALS: BMI 22.1
--- NOTE | 2024-09-07 10:38 | DI.CT.S_ITS ---
PROCEDURE: CT CHEST WO CON INDICATIONS: infilitrates TECHNIQUE: Noncontrast 5 mm thick sections acquired from the pulmonary apices to the posterior costophrenic angles. 1 mm lung window, 5 mm thick coronal and sagittal and 7 mm axial MIP reformats were then acquired. For radiation dose reduction, the following was used: automated exposure control, adjustment of mA and/or kV according to patient size. COMPARISON: [facility], CT, CT CHEST W CON, 06/06/2024, 15:51. FINDINGS: Image quality: Diagnostic. Lower Neck: No enlarged lymph nodes. Thyroid: Left thyroid nodule with small calcification is redemonstrated. Axillae: No enlarged lymph nodes. Chest Wall: Unremarkable. Bones: Multilevel degenerative changes of the spine. Lungs and Pleura: No pneumothorax or pleural effusions. Significant improvement with almost complete resolution of prior ground-glass opacities. There may be tiny residual foci of ground-glass within the right upper lobe (3/84). Biapical pleuroparenchymal scarring. Multiple pulmonary micro nodules and calcified granulomata are redemonstrated. Heart: Heart size is normal. Trace pericardial effusion. Thoracic Vessels: The aorta and pulmonary arteries demonstrate normal size. Atherosclerotic vascular calcifications. Mediastinum and Usha: No enlarged lymph nodes. Esophagus: No wall thickening. No hiatal hernia. Upper Abdomen: Calcified nodule, possibly associated with the left adrenal gland is stable. Otherwise, no significant abnormality is seen within the visualized upper abdomen. IMPRESSION: Near complete resolution of ground-glass opacities. Similar appearance of multiple micro nodules and calcified granulomas. Dictated by: Richie Prince M.D. on 09/07/2024 at 14:40 Approved by: Richie Prince M.D. on 09/07/2024 at 14:53
== END ==
PROVIDERS: PCP Internal Medicine; Referring Provider Internal Medicine; Visit Provider Internal Medicine
DX: J96.01 Acute respiratory failure with hypoxia (principal); U07.1 COVID-19
CPT/HCPCS: 71250

== ENCOUNTER → 2024-09-23 12:45 | Outpatient (CLI) | payer MEDICARE, SELFPAY ==
[2024-06-06 19:56] VITALS: BMI 22.1
[2024-09-23 14:14] LABS: Cholesterol 144 mg/dL (140-199); HDL Cholesterol 85 mg/dL (40-60); LDL Cholesterol Calculated 31 mg/dL (<100); Triglycerides 140 mg/dL (35-150)
[2024-09-23 14:39] LABS: TSH w/ Reflex to FT4 < 0.02 uIU/mL (0.47-4.68)
[2024-09-23 21:04] LABS: Free T4, Direct Thyroxine 0.93 ng/dL (0.78-2.19)
== END ==
PROVIDERS: PCP Internal Medicine; Referring Provider Internal Medicine; Visit Provider Internal Medicine
DX: E03.9 Hypothyroidism, unspecified (principal); E78.2 Mixed hyperlipidemia
CPT/HCPCS: 36415; 80061; 84439; 84443

== ENCOUNTER → 2024-09-23 12:47 | Outpatient (CLI) | payer MEDICARE, SELFPAY ==
[2024-06-06 19:56] VITALS: BMI 22.1
--- NOTE | 2024-09-23 13:03 | DI.MG.S_ITS ---
MM screening mammo BI: 09/23/2024. BI-RADS: 1 CLINICAL: 84-year old female for bilateral screening mammogram. No Tyrer-Cuzick risk score calculation due to patient's age being over 85 years old. No personal or first-degree family history of breast cancer. PRIOR EXAMS 05/20/2023, 01/31/2022, 12/22/2020, 11/04/2019, 10/12/2018, 09/11/2017, 08/09/2016, 07/11/2015. MAMMOGRAPHY TECHNIQUE: 2D and 3D (tomosynthesis) digital mammographic views obtained, with additional images as needed for full coverage. Current study was also evaluated with a Computer Aided Detection (CAD) system. DENSITY C. The breasts are heterogeneously dense, which may obscure small masses. MAMMOGRAPHY FINDINGS Bilateral: No suspicious mass, asymmetry, microcalcification, or other abnormality seen. IMPRESSION: * No evidence of malignancy. RECOMMENDATIONS Bilateral * Annual screening mammography. OVERALL ASSESSMENT CATEGORY BI-RADS-1: Negative. The [employer] recommends annual screening mammography beginning at age 40 for women with average risk of breast cancer. ELECTRONICALLY SIGNED: Masha Carter M.D. on 09/24/2024 at 08:34:28 AM PT Interpreting Station ID: [id number]
== END ==
PROVIDERS: PCP Internal Medicine; Referring Provider Internal Medicine; Visit Provider Internal Medicine
DX: Z12.31 Encounter for screening mammogram for malignant neoplasm of breast (principal); R92.333 Mammographic heterogeneous density, bilateral breasts
CPT/HCPCS: 77063; 77067

== ENCOUNTER → 2024-10-12 12:26 | Outpatient (CLI) | payer MEDICARE, SELFPAY ==
[2024-06-06 19:56] VITALS: BMI 22.1
[2024-10-12 13:53] LABS: Free T4, Direct Thyroxine 0.89 ng/dL (0.78-2.19)
[2024-10-12 14:07] LABS: Thyroid Stimulating Hormone 0.883 uIU/mL (0.47-4.68)
== END ==
PROVIDERS: PCP Internal Medicine; Referring Provider Internal Medicine; Visit Provider Internal Medicine
DX: E03.9 Hypothyroidism, unspecified (principal)
CPT/HCPCS: 36415; 84439; 84443

== ENCOUNTER → 2024-10-26 14:49 | Outpatient (CLI) | payer MEDICARE, SELFPAY ==
[2024-06-06 19:56] VITALS: BMI 22.1
[2024-10-26 15:32] LABS: Add Manual Diff / Slide Review NO; Basophils Absolute Auto 0 /uL (0-100); Basophils Percent Auto 0.5 % (0-2); Eosinophils Absolute Auto 100 /uL (0-450); Eosinophils Percent Auto 1.4 % (2-4); Hematocrit 37.3 % (36-46); Hemoglobin 12.7 g/dL (12.0-16.0); Lymphocytes Absolute Auto 1200 /uL (1100-4500); Lymphocytes Percent Auto 27.2 % (25-40); Mean Corpuscular Volume 99.9 fL (80-100); Monocytes Absolute Auto 400 /uL (0-900); Monocytes Percent Auto 7.8 % (3-14); Neutrophils Absolute Auto 2800 /uL (1500-7000); Neutrophils Percent Auto 63.1 % (50-75); Platelet Count 195 X10^3/uL (150-400); Red Blood Cell Count 3.74 X10^6/uL (4.0-5.2); Red Cell Distribution Width 14.2 % (11.6-14.8); White Blood Cell Count 4.5 X10^3/uL (4.5-11.0)
[2024-10-26 16:06] LABS: Alanine Aminotransferase 12 IU/L (<35); Albumin Globulin Ratio 1.7 (1.0-2.8); Alkaline Phosphatase 61 U/L (38-126); Aspartate Aminotransferase 36 IU/L (14-36); BUN Creatinine Ratio 47.1 (6-22); Bilirubin Total 0.5 mg/dL (0.2-1.3); Blood Urea Nitrogen 32 mg/dL (7-17); Calcium 9.1 mg/dL (8.4-10.2); Carbon Dioxide 30 mmol/L (22-32); Chloride 99 mmol/L (98-107); Estimated Glomerular Filt Rate > 60 mL/min (>60); Globulin 2.4 g/dL (1.7-4.1); Glucose 90 mg/dL (70-99); HEMOLYSIS < 15 (0-50); Potassium 4.2 mmol/L (3.4-5.1); Sodium 134 mmol/L (137-145); Total Protein 6.4 g/dL (6.3-8.2)
== END ==
PROVIDERS: PCP Internal Medicine; Referring Provider Internal Medicine Rheumatology; Visit Provider Internal Medicine Rheumatology
DX: M06.09 Rheumatoid arthritis without rheumatoid factor, multiple sites (principal); Z51.81 Encounter for therapeutic drug level monitoring
CPT/HCPCS: 36415; 80053; 85025

== ENCOUNTER → 2025-02-21 13:47 | Outpatient (CLI) | payer MEDICARE, SELFPAY ==
[2024-06-06 19:56] VITALS: BMI 22.1
[2025-02-21 14:50] LABS: Add Manual Diff / Slide Review NO; Hematocrit 38.7 % (36-46); Hemoglobin 13.3 g/dL (12.0-16.0); Lymphocytes Absolute Auto 1300 /uL (1100-4500); Mean Corpuscular HGB Conc 34.4 % (30-36); Mean Corpuscular Hemoglobin 34.0 PG (26-34); Mean Corpuscular Volume 98.7 fL (80-100); Platelet Count 243 X10^3/uL (150-400)
[2025-02-21 15:11] LABS: Alanine Aminotransferase 10 IU/L (<35); Albumin 4.1 g/dL (3.5-5.0); Albumin Globulin Ratio 1.6 (1.0-2.8); Alkaline Phosphatase 60 U/L (38-126); Blood Urea Nitrogen 31 mg/dL (7-17); Calcium 9.4 mg/dL (8.4-10.2); Carbon Dioxide 28 mmol/L (22-32); Chloride 101 mmol/L (98-107); Estimated Glomerular Filt Rate > 60 mL/min (>60); Globulin 2.6 g/dL (1.7-4.1); Glucose 89 mg/dL (70-99); HEMOLYSIS < 15 (0-50); Potassium 4.6 mmol/L (3.4-5.1); Sodium 136 mmol/L (137-145); Total Protein 6.7 g/dL (6.3-8.2)
== END ==
PROVIDERS: PCP Internal Medicine; Referring Provider Internal Medicine Rheumatology; Visit Provider Internal Medicine Rheumatology
DX: M06.09 Rheumatoid arthritis without rheumatoid factor, multiple sites (principal); Z51.81 Encounter for therapeutic drug level monitoring
CPT/HCPCS: 36415; 80053; 85025